=== PATIENT | female | born 1940 | race Caucasian/White ===

== ENCOUNTER → 2017-07-13 | Outpatient (CLI) | payer OTHER ==
[~2017-07-13] MED LIST: AMLO5TAB2 PO; ASPI-1005 PO; CITA-107 PO; GUAI118S23 PO; HYDR25TA PO; LOSA100T29 PO; METO25TA6 PO; MONT10TA24 PO; OMEP20CA10 PO; PRAV80TA21 PO
== END ==
LOC: RAH 13:22
PROVIDERS: ATTEND Internal Medicine
DX: J84.10 Pulmonary fibrosis, unspecified (principal); R05 Cough
CPT/HCPCS: 71046

== ENCOUNTER 2018-02-18 22:20 | Inpatient (IN) | payer OTHER ==
[~2018-02-18] VITALS: Ht 154.9 cm; Wt 74.4 kg
[~2018-02-18 22:20] MED LIST changes: -AMLO5TAB2 PO; +AMLO5TAB7 PO; -ASPI-1005 PO; +BACL10TA PO; +DUONEB IH; +HYDR2TAB5 PO; +LORA0.5T2 PO; -LOSA100T29 PO; +METF-444 PO; +NITR0.4T SL; +POLY15DR57 OU; +POLY17PO3 PO; +PRED20TA3 PO; +PROP20TA7 PO; +TEMA7.5C17 PO; +TRAZ-185 PO; +[UNRECOGNIZED DRUG - CODE] OU
[2018-02-18] MEDS ORDERED: ALBU6.7H IH (23:38)
[2018-02-18] MEDS ORDERED: TIOT4MIS5 IH (23:38)
[2018-02-18] MEDS ORDERED: NAPR-1192 PO (23:45)
[2018-02-18] MEDS ORDERED: ALPR0.255 PO (23:58)
[2018-02-18] MEDS ORDERED: GABA-531 PO (23:58)
[2018-02-18] MEDS ORDERED: LOSA100T20 PO (23:58)
[2018-02-18] MEDS ORDERED: INSU100I21 SQ (23:58)
[2018-02-19] VITALS (7 sets, daily range): BP systolic 108–136; BP diastolic 53–76
[2018-02-19] MEDS ORDERED: ALPRAZOLAM 0.25 MG TABLET PO PRN (00:30)
[2018-02-19] MEDS ORDERED: NITROGLYCERIN 0.4 MG SL TAB SL PRN (00:30)
[2018-02-19] MEDS: LEVOFLOXACIN 500 MG/D5W 100 ML 100 ML IV SCH ×2 (01:17→23:02)
[2018-02-19] MEDS: IPRATROPIUM/ALBUTEROL SULFATE 3 ML SOLUTION IH SCH ×5 (01:46→21:52)
[2018-02-19] MEDS ORDERED: PHARMACY COMMUNICATION MISC SCH (02:00)
[2018-02-19] MEDS ORDERED: METHYLPREDNISOLONE SOD SUCC 125MG/2ML VIAL IVP SCH (03:00)
[2018-02-19 04:51] LABS: HEMOGLOBIN A1C 6.7 % (4.0-6.0)
[2018-02-19 06:09] LABS: BASOPHILS % (AUTO) 0.3 % (0.0-5.0); HEMATOCRIT 33.6 % (36-48); LYMPHOCYTES % (AUTO) 12.9 % (21.0-51.0); MEAN CORPUSCULAR HEMOGLOBIN 29.6 pg (27.0-33.0); MEAN CORPUSCULAR HGB CONC 33.9 g/dL (32.0-36.0); MEAN CORPUSCULAR VOLUME 87.3 fL (79-99); MONOCYTES % (AUTO) 1.9 % (3.0-13.0); NEUTROPHILS % (AUTO) 84.9 % (40.0-77.0); PLATELET COUNT (AUTO) 332 K/uL (130-400); RED BLOOD CELL COUNT(AUTO) 3.85 MIL/uL (4.00-5.50); RED CELL DISTRIBUTION WIDTH 15.1 % (11.0-15.5); WHITE BLOOD COUNT (AUTO) 4.5 K/uL (4.8-10.8)
[2018-02-19 06:28] LABS: ALBUMIN 3.2 g/dL (3.5-5.0); BILIRUBIN,TOTAL 0.2 mg/dL (0.2-1.0); CREATININE 0.9 mg/dL (0.5-1.5); POTASSIUM 4.6 mmol/L (3.5-5.1); TOTAL PROTEIN, SERUM 7.1 g/dL (6.0-8.3)
[2018-02-19] MEDS ORDERED: INSULIN HUMULIN R 100 UNIT/ML 3ML SQ SCH (07:30)
[2018-02-19] MEDS ORDERED: DEXTROSE 50%-WATER 50 ML DISP.SYRIN IV PRN (08:00)
[2018-02-19] MEDS ORDERED: GLUCAGON 1MG KIT 1 MG ML IM PRN (08:00)
[2018-02-19] MEDS: METHYLPREDNISOLONE SOD SUCC 125MG/2ML VIAL IVP SCH ×2 (09:52→17:49)
[2018-02-19] MEDS: POLYETHYLENE GLYCOL 3350 17 GM POWD.PACK PO SCH (09:53)
[2018-02-19] MEDS: PANTOPRAZOLE SODIUM 40 MG TABLET.DR PO SCH (09:53)
[2018-02-19] MEDS: MONTELUKAST SODIUM 10 MG TAB PO SCH (09:53)
[2018-02-19] MEDS: ENOXAPARIN SODIUM 30 MG/0.3 ML SQ SCH (09:53)
[2018-02-19] MEDS: LOSARTAN 100 MG TABLET PO SCH (09:54)
[2018-02-19] MEDS: CITALOPRAM 20 MG TABLET PO SCH ×2 (09:54→20:31)
[2018-02-19] MEDS: AMLODIPINE BESYLATE 5 MG TAB PO SCH (09:55)
[2018-02-19] MEDS: HYDROCHLOROTHIAZIDE 25 MG TABLET PO SCH (11:13)
[2018-02-19] MEDS: BENZONATATE 100 MG CAPSULE PO PRN ×2 (11:13→23:05)
[2018-02-19] MEDS: BACLOFEN 10 MG TABLET PO PRN ×2 (12:44→20:31)
[2018-02-19] MEDS: INSULIN HUMULIN R 100 UNIT/ML 3ML SQ SCH ×3 (12:44→20:38)
[2018-02-19] MEDS ORDERED: ACETAMINOPHEN 325 MG TAB ONE (12:47)
[2018-02-19] MEDS ORDERED: GUAIFENESIN-DM 200/20 MG 10 ML PO PRN (13:00)
[2018-02-19] MEDS: ACETAMINOPHEN 325 MG TAB PO PRN ×2 (13:12→21:39)
[2018-02-19] MEDS ORDERED: GUAIFENESIN-CODEINE 5 ML SYRUP ONE (13:14)
[2018-02-19] MEDS: GUAIFENESIN-CODEINE 5 ML SYRUP PO PRN (20:31)
[2018-02-19] MEDS: TEMAZEPAM 7.5 MG CAPSULE PO SCH (20:31)
[2018-02-19] MEDS ORDERED: SODIUM CHLORIDE 3% FOR INHALATION 4 ML/AMP VIAL.NEB IH ONE (21:44)
[2018-02-20] VITALS: BP 125/76
[2018-02-20] MEDS: METHYLPREDNISOLONE SOD SUCC 125MG/2ML VIAL IVP SCH ×3 (01:18→17:55)
[2018-02-20 04:00] VITALS: BP 133/62
[2018-02-20] MEDS: GUAIFENESIN-CODEINE 5 ML SYRUP PO PRN ×2 (04:03→22:00)
[2018-02-20] MEDS: ACETAMINOPHEN 325 MG TAB PO PRN (04:07)
[2018-02-20] MEDS: IPRATROPIUM/ALBUTEROL SULFATE 3 ML SOLUTION IH SCH ×3 (06:04→22:58)
[2018-02-20] MEDS: INSULIN HUMULIN R 100 UNIT/ML 3ML SQ SCH ×4 (06:59→22:01)
[2018-02-20 07:00] VITALS: BP 130/65
[2018-02-20] MEDS ORDERED: TRAZODONE HCL 50 MG TAB PO PRN (08:30)
[2018-02-20] MEDS: HYDROCHLOROTHIAZIDE 25 MG TABLET PO SCH (09:00)
[2018-02-20] MEDS: POLYETHYLENE GLYCOL 3350 17 GM POWD.PACK PO SCH (09:15)
[2018-02-20] MEDS: ENOXAPARIN SODIUM 30 MG/0.3 ML SQ SCH (09:16)
[2018-02-20] MEDS: MONTELUKAST SODIUM 10 MG TAB PO SCH (09:17)
[2018-02-20] MEDS: PANTOPRAZOLE SODIUM 40 MG TABLET.DR PO SCH (09:17)
[2018-02-20] MEDS: AMLODIPINE BESYLATE 5 MG TAB PO SCH (09:17)
[2018-02-20] MEDS: LOSARTAN 100 MG TABLET PO SCH (09:18)
[2018-02-20] MEDS: CITALOPRAM 20 MG TABLET PO SCH ×2 (09:18→21:59)
[2018-02-20] MEDS: HYDROMORPHONE HCL 2 MG TAB PO PRN (09:30)
[2018-02-20 11:00] VITALS: BP 146/60
[2018-02-20 16:00] VITALS: BP 120/61
[2018-02-20 20:00] VITALS: BP 106/63
[2018-02-20] MEDS: GABAPENTIN 300 MG CAPSULE PO PRN (22:00)
[2018-02-20] MEDS: TEMAZEPAM 7.5 MG CAPSULE PO SCH (22:00)
[2018-02-20] MEDS: BENZONATATE 100 MG CAPSULE PO PRN (22:00)
[2018-02-21] VITALS (7 sets, daily range): BP systolic 106–125; BP diastolic 52–76
[2018-02-21] MEDS: LEVOFLOXACIN 500 MG/D5W 100 ML 100 ML IV SCH ×2 (00:04→23:56)
[2018-02-21] MEDS: METHYLPREDNISOLONE SOD SUCC 125MG/2ML VIAL IVP SCH ×3 (01:08→17:36)
[2018-02-21] MEDS: IPRATROPIUM/ALBUTEROL SULFATE 3 ML SOLUTION IH SCH ×3 (06:35→21:29)
[2018-02-21] MEDS: INSULIN HUMULIN R 100 UNIT/ML 3ML SQ SCH ×4 (06:38→20:57)
[2018-02-21] MEDS: POLYETHYLENE GLYCOL 3350 17 GM POWD.PACK PO SCH ×2 (09:00→17:36)
[2018-02-21] MEDS: HYDROCHLOROTHIAZIDE 25 MG TABLET PO SCH (09:42)
[2018-02-21] MEDS: AMLODIPINE BESYLATE 5 MG TAB PO SCH (09:42)
[2018-02-21] MEDS: PANTOPRAZOLE SODIUM 40 MG TABLET.DR PO SCH (09:42)
[2018-02-21] MEDS: LOSARTAN 100 MG TABLET PO SCH (09:42)
[2018-02-21] MEDS: CITALOPRAM 20 MG TABLET PO SCH ×2 (09:43→20:55)
[2018-02-21] MEDS: MONTELUKAST SODIUM 10 MG TAB PO SCH (09:43)
[2018-02-21] MEDS: ENOXAPARIN SODIUM 30 MG/0.3 ML SQ SCH (09:44)
[2018-02-21] MEDS: BENZONATATE 100 MG CAPSULE PO PRN (17:35)
[2018-02-21] MEDS: HYDROMORPHONE HCL 2 MG TAB PO PRN (17:35)
[2018-02-21] MEDS: GUAIFENESIN-CODEINE 5 ML SYRUP PO PRN (20:55)
[2018-02-21] MEDS: TEMAZEPAM 7.5 MG CAPSULE PO SCH (20:55)
[2018-02-22] VITALS (7 sets, daily range): BP systolic 125–168; BP diastolic 62–76
[2018-02-22] MEDS: METHYLPREDNISOLONE SOD SUCC 125MG/2ML VIAL IVP SCH ×2 (01:07→09:39)
[2018-02-22] MEDS: HYDROMORPHONE HCL 2 MG TAB PO PRN (02:39)
[2018-02-22] MEDS: DIPHENHYDRAMINE HCL 25 MG CAPSULE PO PRN ×2 (03:33→09:38)
[2018-02-22 05:02] LABS: BASOPHILS % (AUTO) 0.1 % (0.0-5.0); HEMATOCRIT 30.5 % (36-48); LYMPHOCYTES % (AUTO) 4.1 % (21.0-51.0); MEAN CORPUSCULAR HEMOGLOBIN 28.8 pg (27.0-33.0); MEAN CORPUSCULAR HGB CONC 33.3 g/dL (32.0-36.0); MEAN CORPUSCULAR VOLUME 86.5 fL (79-99); MONOCYTES % (AUTO) 4.5 % (3.0-13.0); NEUTROPHILS % (AUTO) 91.3 % (40.0-77.0); PLATELET COUNT (AUTO) 338 K/uL (130-400); RED BLOOD CELL COUNT(AUTO) 3.53 MIL/uL (4.00-5.50); RED CELL DISTRIBUTION WIDTH 15.2 % (11.0-15.5); WHITE BLOOD COUNT (AUTO) 11.7 K/uL (4.8-10.8)
[2018-02-22 05:18] LABS: CREATININE 0.9 mg/dL (0.5-1.5); POTASSIUM 4.4 mmol/L (3.5-5.1)
[2018-02-22] MEDS: PANTOPRAZOLE SODIUM 40 MG TABLET.DR PO SCH (06:07)
[2018-02-22] MEDS: INSULIN HUMULIN R 100 UNIT/ML 3ML SQ SCH ×4 (06:14→20:35)
[2018-02-22] MEDS: IPRATROPIUM/ALBUTEROL SULFATE 3 ML SOLUTION IH SCH ×3 (06:55→21:14)
[2018-02-22] MEDS: CITALOPRAM 20 MG TABLET PO SCH ×2 (09:38→20:30)
[2018-02-22] MEDS: POLYETHYLENE GLYCOL 3350 17 GM POWD.PACK PO SCH (09:38)
[2018-02-22] MEDS: MONTELUKAST SODIUM 10 MG TAB PO SCH (09:38)
[2018-02-22] MEDS: AMLODIPINE BESYLATE 5 MG TAB PO SCH (09:38)
[2018-02-22] MEDS: HYDROCHLOROTHIAZIDE 25 MG TABLET PO SCH (09:38)
[2018-02-22] MEDS: ENOXAPARIN SODIUM 30 MG/0.3 ML SQ SCH (09:39)
[2018-02-22] MEDS: LOSARTAN 100 MG TABLET PO SCH (09:39)
[2018-02-22] MEDS: ACETAMINOPHEN 325 MG TAB PO PRN ×2 (09:53→17:26)
[2018-02-22] MEDS: BENZONATATE 100 MG CAPSULE PO PRN ×2 (12:23→17:22)
[2018-02-22] MEDS ORDERED: METHYLPREDNISOLONE SOD SUCC 40MG/ML 1ML IVP SCH (17:00)
[2018-02-22] MEDS: GABAPENTIN 300 MG CAPSULE PO PRN (20:30)
[2018-02-22] MEDS: TEMAZEPAM 7.5 MG CAPSULE PO SCH (20:30)
[2018-02-22] MEDS: GUAIFENESIN-CODEINE 5 ML SYRUP PO PRN (20:30)
[2018-02-22] MEDS: PREDNISONE 10 MG TABLET PO SCH (20:30)
[2018-02-22] MEDS ORDERED: PREDNISONE 10 MG TABLET PO ONE (21:00)
[2018-02-22] MEDS: LEVOFLOXACIN 500 MG/D5W 100 ML 100 ML IV SCH (23:47)
[2018-02-23 04:00] VITALS: BP 139/76
[2018-02-23] MEDS: INSULIN HUMULIN R 100 UNIT/ML 3ML SQ SCH ×2 (06:14→11:30)
[2018-02-23] MEDS: PANTOPRAZOLE SODIUM 40 MG TABLET.DR PO SCH (06:45)
[2018-02-23] MEDS: IPRATROPIUM/ALBUTEROL SULFATE 3 ML SOLUTION IH SCH ×2 (07:13→14:17)
[2018-02-23 08:00] VITALS: BP 137/70
[2018-02-23] MEDS: AMLODIPINE BESYLATE 5 MG TAB PO SCH (09:19)
[2018-02-23] MEDS: MONTELUKAST SODIUM 10 MG TAB PO SCH (09:19)
[2018-02-23] MEDS: CITALOPRAM 20 MG TABLET PO SCH (09:20)
[2018-02-23] MEDS: PREDNISONE 10 MG TABLET PO SCH (09:20)
[2018-02-23] MEDS: HYDROCHLOROTHIAZIDE 25 MG TABLET PO SCH (09:20)
[2018-02-23] MEDS: LOSARTAN 100 MG TABLET PO SCH (09:20)
[2018-02-23] MEDS: ENOXAPARIN SODIUM 30 MG/0.3 ML SQ SCH (09:23)
[2018-02-23] MEDS: POLYETHYLENE GLYCOL 3350 17 GM POWD.PACK PO SCH (09:25)
[2018-02-23] MEDS: GUAIFENESIN-CODEINE 5 ML SYRUP PO PRN (09:28)
[2018-02-23 12:00] VITALS: BP 120/75
[2018-02-23] MEDS ORDERED: METH4TAB3 PO (12:35)
== END 2018-02-23 15:21 | disposition home or self-care (01) | DRG 189 ==
LOC: 3DH 22:23
PROVIDERS: ADMIT Internal Medicine; ATTEND Internal Medicine
DX: J96.22 Acute and chronic respiratory failure with hypercapnia (principal); J44.1 Chronic obstructive pulmonary disease with (acute) exacerbation; J96.21 Acute and chronic respiratory failure with hypoxia; E11.65 Type 2 diabetes mellitus with hyperglycemia; E66.9 Obesity, unspecified; I25.10 Atherosclerotic heart disease of native coronary artery without angina pectoris; E78.00 Pure hypercholesterolemia, unspecified; F41.9 Anxiety disorder, unspecified; H04.123 Dry eye syndrome of bilateral lacrimal glands; I10 Essential (primary) hypertension; Z77.22 Contact with and (suspected) exposure to environmental tobacco smoke (acute) (chronic); Z79.4 Long term (current) use of insulin; Z82.0 Family history of epilepsy and other diseases of the nervous system; Z82.49 Family history of ischemic heart disease and other diseases of the circulatory system; Z82.5 Family history of asthma and other chronic lower respiratory diseases; Z99.81 Dependence on supplemental oxygen; Z68.30 Body mass index [BMI] 30.0-30.9, adult; Z83.3 Family history of diabetes mellitus; Z87.891 Personal history of nicotine dependence; Z88.0 Allergy status to penicillin; Z88.8 Allergy status to other drugs, medicaments and biological substances; Z91.041 Radiographic dye allergy status; Z79.899 Other long term (current) drug therapy; Z79.84 Long term (current) use of oral hypoglycemic drugs
CPT/HCPCS: 36415; 70450; 71046; 80048; 80053; 82948; 83036; 85025; 87071; 87205; 93925; 94640; 94664; 94760; 97039; J1650; J1815; J1956; J2920; J2930; J7512; Q0163

== ENCOUNTER 2018-08-18 17:35 | Emergency (ER) | payer OTHER ==
[~2018-08-18 17:35] MED LIST changes: +ALPR0.255 PO; -AMLO5TAB7 PO; -BACL10TA PO; +CITA-106 PO; -CITA-107 PO; -DUONEB IH; -GUAI118S23 PO; -HYDR25TA PO; -HYDR2TAB5 PO; -LORA0.5T2 PO; +LOSA50TA2 PO; -METF-444 PO; +METO25 PO; -METO25TA6 PO; -POLY15DR57 OU; -POLY17PO3 PO; -PRED20TA3 PO; -PROP20TA7 PO; -TEMA7.5C17 PO; -TRAZ-185 PO
[2018-08-18] MEDS ORDERED: IPRATROPIUM/ALBUTEROL SULFATE 3 ML SOLUTION IH ONE (18:05)
[2018-08-18] MEDS ORDERED: SODIUM CHLORIDE 0.9% 1000ML 1,000 ML IV ONE (18:10)
[2018-08-18 18:15] LABS: BASOPHILS % (AUTO) 0.6 % (0.0-5.0); EOSINOPHILS % (AUTO) 4.6 % (0.0-8.0); HEMATOCRIT 29.3 % (36-48); LYMPHOCYTES % (AUTO) 20.4 % (21.0-51.0); MEAN CORPUSCULAR HEMOGLOBIN 28.8 pg (27.0-33.0); MEAN CORPUSCULAR HGB CONC 32.9 g/dL (32.0-36.0); MEAN CORPUSCULAR VOLUME 87.5 fL (79-99); NEUTROPHILS % (AUTO) 58.4 % (40.0-77.0); NUCLEATED RED BLOOD CELLS 0.1 % (0.0-0.19); PLATELET COUNT (AUTO) 272 K/uL (130-400); RED BLOOD CELL COUNT(AUTO) 3.34 MIL/uL (4.00-5.50); RED CELL DISTRIBUTION WIDTH 14.4 % (11.0-15.5); WHITE BLOOD COUNT (AUTO) 6.9 K/uL (4.8-10.8)
[2018-08-18 18:26] LABS: CREATININE 1.8 mg/dL (0.5-1.5)
[2018-08-18 18:31] LABS: ALBUMIN 3.4 g/dL (3.5-5.0); BILIRUBIN,TOTAL 0.1 mg/dL (0.2-1.0); TOTAL PROTEIN, SERUM 6.5 g/dL (6.0-8.3)
== END 2018-08-18 21:54 | disposition home or self-care (01) ==
LOC: EDH 17:35
DX: I95.9 Hypotension, unspecified (principal); E86.0 Dehydration; J44.9 Chronic obstructive pulmonary disease, unspecified; E11.9 Type 2 diabetes mellitus without complications; F41.9 Anxiety disorder, unspecified; I25.10 Atherosclerotic heart disease of native coronary artery without angina pectoris; E78.5 Hyperlipidemia, unspecified; Z90.49 Acquired absence of other specified parts of digestive tract; Z98.890 Other specified postprocedural states; Z88.0 Allergy status to penicillin; Z91.041 Radiographic dye allergy status; Z91.030 Bee allergy status; Z88.8 Allergy status to other drugs, medicaments and biological substances
CPT/HCPCS: 36415; 71045; 80053; 84484; 85025; 93005; 94640; 96360; 96361; 99284; J7030

== ENCOUNTER 2018-10-07 11:16 | Inpatient (IN) | payer OTHER ==
[~2018-10-07] VITALS: Ht 154.9 cm; Wt 69.0 kg
[2018-10-07] MEDS ORDERED: IPRATROPIUM/ALBUTEROL SULFATE 3 ML SOLUTION IH ONE ×3 (11:27→11:28)
[2018-10-07] MEDS ORDERED: NITROGLYCERIN 1GM/1 INCH PACKET TD ONE (11:42)
[2018-10-07 11:46] LABS: BASOPHILS % (AUTO) 0.6 % (0.0-5.0); EOSINOPHILS % (AUTO) 7.8 % (0.0-8.0); LYMPHOCYTES % (AUTO) 17.9 % (21.0-51.0); MEAN CORPUSCULAR HEMOGLOBIN 29.2 pg (27.0-33.0); MEAN CORPUSCULAR HGB CONC 32.6 g/dL (32.0-36.0); MEAN CORPUSCULAR VOLUME 89.7 fL (79-99); MONOCYTES % (AUTO) 8.4 % (3.0-13.0); NEUTROPHILS % (AUTO) 65.3 % (40.0-77.0); NUCLEATED RED BLOOD CELLS 0.1 % (0.0-0.19); PLATELET COUNT (AUTO) 257 K/uL (130-400); RED BLOOD CELL COUNT(AUTO) 3.79 MIL/uL (4.00-5.50); RED CELL DISTRIBUTION WIDTH 16.1 % (11.0-15.5); WHITE BLOOD COUNT (AUTO) 6.9 K/uL (4.8-10.8)
[2018-10-07 12:01] LABS: PARTIAL THROMBOPLASTIN TIME 20.4 SEC (26.3-35.5); PROTHROMBIN TIME 10.5 SEC (9.6-11.6)
[2018-10-07 12:07] LABS: CREATININE 1.1 mg/dL (0.5-1.5)
[2018-10-07 12:34] LABS: ALBUMIN 3.5 g/dL (3.5-5.0); BILIRUBIN,TOTAL 0.3 mg/dL (0.2-1.0); TOTAL PROTEIN, SERUM 6.7 g/dL (6.0-8.3)
[2018-10-07 13:46] LABS: APPEARANCE,URINE Cloudy (CLEAR); BILIRUBIN,URINE Negative (NEGATIVE); COLOR,URINE Yellow (YELLOW); GLUCOSE, URINE (UA) Negative (NEGATIVE); KETONES,URINE Negative (NEGATIVE); LEUKOCYTE ESTERASE ,URINE Negative (NEGATIVE); NITRATE,URINE Negative (NEGATIVE); OCCULT BLOOD,URINE Negative (NEGATIVE); PROTEIN,URINE Negative (NEGATIVE); UROBILINOGEN,URINE 0.2 mg/dL (0.2-1.0)
[2018-10-07] MEDS ORDERED: MORPHINE SULFATE 2 MG/ML 1ML SYG ONE (14:01)
[2018-10-07 14:22] LABS: BACTERIA,URINE Rare /HPF (None Seen); RBC,URINE 0-1 /HPF (0-1); SQUAMOUS EPITHELIAL CELL,UR Rare /HPF (0-2); WBC,URINE 0-1 /HPF (0-1)
[2018-10-07] MEDS: METHYLPREDNISOLONE SOD SUCC 125MG/2ML VIAL IV SCH (16:15)
[2018-10-07] MEDS: MONTELUKAST SODIUM 10 MG TAB PO SCH (16:15)
[2018-10-07] MEDS ORDERED: ACETAMINOPHEN 325 MG TAB PO PRN (16:15)
[2018-10-07] MEDS: DOXYCYCLINE 100MG+NS 250ML 250 ML IV SCH (16:15)
[2018-10-07] MEDS ORDERED: ONDANSETRON HCL 4 MG/2 ML VIAL IV PRN (16:15)
[2018-10-07] MEDS ORDERED: SODIUM CHLORIDE 3% FOR INHALATION 4 ML/AMP VIAL.NEB IH ONE (16:35)
[2018-10-07] MEDS ORDERED: MONTELUKAST SODIUM 10 MG TAB ONE (17:39)
[2018-10-07] MEDS ORDERED: METHYLPREDNISOLONE SOD SUCC 40MG/ML 1ML ONE (17:42)
[2018-10-07] MEDS ORDERED: DOXYCYCLINE 100MG+NS 250ML 250 ML IV ONE (17:42)
[2018-10-07 18:44] VITALS: BP 102/55
--- NOTE | 2018-10-07 18:45 | NUR ---
Received patient in the floor to room 230. Keep 3l NC So2-94%. Patient family in the room. Call light in reach and demonstrate how to use it. Bed in low position.
[2018-10-07 19:00] VITALS: BP 117/63
[2018-10-07] MEDS: IPRATROPIUM/ALBUTEROL SULFATE 3 ML SOLUTION IH SCH ×2 (19:04→23:50)
[2018-10-07] MEDS: BUDESONIDE 0.5 MG/2 ML INH IH SCH (19:39)
[2018-10-07 23:00] VITALS: BP 117/64
[2018-10-08] MEDS: METHYLPREDNISOLONE SOD SUCC 125MG/2ML VIAL IV SCH ×4 (02:05→23:57)
[2018-10-08 03:00] VITALS: BP 98/40
[2018-10-08] MEDS ORDERED: ACET-2247 PO (06:13)
[2018-10-08] MEDS ORDERED: SIMV80TA91 PO (06:14)
[2018-10-08] MEDS ORDERED: TRAM50TA4 PO (06:14)
[2018-10-08] MEDS ORDERED: MOM30 PO (06:20)
[2018-10-08] MEDS ORDERED: ASPI-555 PO (06:26)
[2018-10-08] MEDS ORDERED: APIX5TAB PO (06:26)
[2018-10-08] MEDS ORDERED: ZOLP5TAB2 PO (06:26)
[2018-10-08] MEDS ORDERED: LACT10SO9 PO (06:26)
[2018-10-08] MEDS ORDERED: LACT1CAP90 PO (06:26)
[2018-10-08] MEDS ORDERED: [UNRECOGNIZED DRUG - CODE] MC (06:29)
[2018-10-08] MEDS: DOXYCYCLINE 100MG+NS 250ML 250 ML IV SCH ×2 (06:31→17:08)
[2018-10-08] MEDS: IPRATROPIUM/ALBUTEROL SULFATE 3 ML SOLUTION IH SCH ×3 (06:52→19:15)
[2018-10-08] MEDS: BUDESONIDE 0.5 MG/2 ML INH IH SCH ×2 (06:52→19:32)
[2018-10-08 07:25] VITALS: BP 148/69
[2018-10-08] MEDS: MONTELUKAST SODIUM 10 MG TAB PO SCH (09:00)
[2018-10-08] MEDS: CETIRIZINE HCL 5 MG TABLET PO SCH (09:00)
[2018-10-08] MEDS ORDERED: ENOXAPARIN SODIUM 40 MG/0.4 ML SYRINGE SQ SCH (09:00)
--- NOTE | 2018-10-08 10:50 | NUR ---
PT. C/O SOB. REQUESTING "MACHINE" (BIPAP) BE REAPPLIED "LIKE IN THE EMERGENCY DEPARTMENT."
[2018-10-08] MEDS: ACETAMINOPHEN 325 MG TAB PO PRN (11:01)
--- NOTE | 2018-10-08 11:05 | NUR ---
DR. LLANOS IN ROOM SPEAKING WITH PT.
--- NOTE | 2018-10-08 11:09 | NUR ---
DR. LLANOS SPEAKING WITH DR. QUINTERO RE: CONSULT.
--- NOTE | 2018-10-08 11:13 | NUR ---
DR. QUINTERO IN ROOM WITH PT. FOR CONSULT.
[2018-10-08 11:29] VITALS: BP 153/73
[2018-10-08] MEDS: MORPHINE SULFATE 2 MG/ML 1ML SYG IVP PRN (12:04)
[2018-10-08] MEDS ORDERED: MAGNESIUM HYDROXIDE 30 ML/UDCUP PO PRN (12:15)
--- NOTE | 2018-10-08 12:15 | NUR ---
PT. REMOVED BIPAP FOR LUNCH. PLACED ON 3L/NC. CALL LIGHT WITHIN REACH, INSTRUCTED ON USE AND VERBALIZED UNDERSTANDING. DAUGHTER AT BEDSIDE.
--- NOTE | 2018-10-08 13:00 | NUR ---
ATE LUNCH, TOLERATED W/O C/O. STATES," I'M DOING MUCH BETTER. I DON'T THINK I NEED THAT (BIPAP) ANYMORE." CALL LIGHT WITHIN REACH.
[2018-10-08] MEDS: LACTOBACILLUS RHAMNOSUS GG 1 EACH CAP.SPRINK PO SCH ×2 (13:38→19:33)
[2018-10-08] MEDS ORDERED: ACETAMINOPHEN 325 MG TAB PO SCH (14:00)
[2018-10-08] MEDS ORDERED: ACETAMINOPHEN 325 MG TAB PO PRN (14:00)
[2018-10-08] MEDS ORDERED: TRAMADOL HCL 50 MG TABLET PO SCH (14:00)
[2018-10-08] MEDS ORDERED: TRAMADOL HCL 50 MG TABLET PO PRN (14:00)
--- NOTE | 2018-10-08 15:25 | NUR ---
INITIAL: Met w pt this afternoon to discuss dcp. Pt states that she lives w her dtr [place] and granddtr. Pt states that at home she uses a rollator for ambulation. She requires supervision w ADLs. and Has home O2, nebulizer and a hosp bed. Pt states that she feels safe and comfortable to return home at [place]. Will continue to follow and wait for Md recommendations. Addendum: 10/08/18 at 1532 by ANAMARIA GRANADOS CM Amended: Links added.
[2018-10-08 15:59] VITALS: BP 154/71
[2018-10-08] MEDS: LEVOFLOXACIN 750 MG/D5W 150 ML 150 ML IV SCH (16:02)
--- NOTE | 2018-10-08 17:05 | NUR ---
SITTING UP IN BED. EATING DINNER. W/O C/O. CALL LIGHT WITHIN REACH.
[2018-10-08] MEDS: GUAIFENESIN-CODEINE 5 ML SYRUP PO PRN (17:14)
[2018-10-08 19:00] VITALS: BP 149/70
[2018-10-08] MEDS: APIXABAN 5 MG TABLET PO SCH (21:22)
[2018-10-08] MEDS: METOPROLOL TARTRATE 25 MG TAB PO SCH (21:22)
[2018-10-08] MEDS: LACTULOSE 20 GM/30 ML UDCUP PO SCH (21:23)
[2018-10-08] MEDS: SIMVASTATIN 20 MG TABLET PO SCH (21:23)
[2018-10-08 23:00] VITALS: BP 146/67
[2018-10-09] VITALS (9 sets, daily range): BP systolic 137–172; BP diastolic 70–83
[2018-10-09] MEDS: IPRATROPIUM/ALBUTEROL SULFATE 3 ML SOLUTION IH SCH ×5 (00:37→23:32)
[2018-10-09] MEDS: DOXYCYCLINE 100MG+NS 250ML 250 ML IV SCH ×2 (03:05→17:13)
[2018-10-09] MEDS: BUDESONIDE 0.5 MG/2 ML INH IH SCH ×2 (07:11→18:50)
[2018-10-09] MEDS ORDERED: LOSARTAN 50 MG TABLET PO SCH (09:00)
[2018-10-09] MEDS ORDERED: PANTOPRAZOLE SODIUM 40 MG TABLET.DR PO PRN (09:00)
[2018-10-09] MEDS: LACTULOSE 20 GM/30 ML UDCUP PO SCH ×2 (09:00→20:53)
[2018-10-09] MEDS: METOPROLOL TARTRATE 25 MG TAB PO SCH ×2 (09:28→20:53)
[2018-10-09] MEDS: APIXABAN 5 MG TABLET PO SCH ×2 (09:28→20:53)
[2018-10-09] MEDS: CITALOPRAM 20 MG TABLET PO SCH (09:28)
[2018-10-09] MEDS: MONTELUKAST SODIUM 10 MG TAB PO SCH (09:28)
[2018-10-09] MEDS: METHYLPREDNISOLONE SOD SUCC 125MG/2ML VIAL IV SCH ×2 (09:29→17:12)
[2018-10-09] MEDS: LEVOFLOXACIN 750 MG/D5W 150 ML 150 ML IV SCH (09:29)
[2018-10-09] MEDS: LACTOBACILLUS RHAMNOSUS GG 1 EACH CAP.SPRINK PO SCH (09:29)
[2018-10-09] MEDS: CETIRIZINE HCL 5 MG TABLET PO SCH (09:29)
[2018-10-09] MEDS: ASPIRIN 81MG TAB.CHEW PO SCH (09:29)
--- NOTE | 2018-10-09 10:44 | NUR ---
DR. QUINTERO IN ROOM ASSESSING AND SPEAKING WITH PT. RE:PLAN OF CARE. QUESTIONS ANSWERED BY DR. QUINTERO.
[2018-10-09] MEDS ORDERED: GUAIFENESIN 600 MG TABLET.ER PO SCH (11:00)
[2018-10-09] MEDS: GUAIFENESIN-CODEINE 5 ML SYRUP PO PRN (11:40)
[2018-10-09] MEDS: CALCIUM CARBON 500MG CHEW TAB PO SCH ×2 (13:06→20:53)
[2018-10-09] MEDS: GUAIFENESIN 600 MG TABLET.ER PO SCH (20:53)
[2018-10-09] MEDS: SIMVASTATIN 20 MG TABLET PO SCH (20:53)
[2018-10-09] MEDS: ZOLPIDEM TARTRATE 5 MG TAB PO PRN (20:58)
[2018-10-10] MEDS: METHYLPREDNISOLONE SOD SUCC 125MG/2ML VIAL IV SCH ×2 (00:16→07:20)
[2018-10-10 03:00] VITALS: BP 158/75
[2018-10-10] MEDS: DOXYCYCLINE 100MG+NS 250ML 250 ML IV SCH ×2 (04:20→16:18)
--- NOTE | 2018-10-10 05:25 | NUR ---
Pt. states she noticed that she has more frequent tremors than usual now and it interferes her from doing her bony.Instructed pt. to take rest and see if it subsides .Instructed pt to use call light for assistance since she is high risk for fall.
[2018-10-10] MEDS: BUDESONIDE 0.5 MG/2 ML INH IH SCH ×2 (06:20→18:32)
[2018-10-10] MEDS: IPRATROPIUM/ALBUTEROL SULFATE 3 ML SOLUTION IH SCH ×4 (06:20→23:23)
[2018-10-10] MEDS: ASPIRIN 81MG TAB.CHEW PO SCH (07:18)
[2018-10-10] MEDS: LACTULOSE 20 GM/30 ML UDCUP PO SCH ×2 (07:18→20:38)
[2018-10-10] MEDS: LEVOFLOXACIN 750 MG/D5W 150 ML 150 ML IV SCH (07:18)
[2018-10-10] MEDS: CETIRIZINE HCL 5 MG TABLET PO SCH (07:18)
[2018-10-10] MEDS: APIXABAN 5 MG TABLET PO SCH ×2 (07:19→20:38)
[2018-10-10] MEDS: MONTELUKAST SODIUM 10 MG TAB PO SCH (07:19)
[2018-10-10] MEDS: METOPROLOL TARTRATE 25 MG TAB PO SCH ×2 (07:19→20:38)
[2018-10-10] MEDS: CALCIUM CARBON 500MG CHEW TAB PO SCH ×3 (07:19→20:40)
[2018-10-10] MEDS: GUAIFENESIN 600 MG TABLET.ER PO SCH ×2 (07:19→20:38)
[2018-10-10] MEDS: CITALOPRAM 20 MG TABLET PO SCH (07:19)
[2018-10-10] MEDS: LOSARTAN 100 MG TABLET PO SCH (07:19)
[2018-10-10] MEDS: LACTOBACILLUS RHAMNOSUS GG 1 EACH CAP.SPRINK PO SCH (07:20)
[2018-10-10 07:47] VITALS: BP 163/78
--- NOTE | 2018-10-10 08:00 | NUR ---
ASSESSMENT PT IS AAOX3 DENIES CP DENIES SOB DENIES NV AT THIS TIME, SITTING UPRIGHT IN BED, PATIENT HAS A COUGH. O2 IS ON PATIENT AT 2LPM. AM MEDS GIVEN NO COMPLAINTS.
--- NOTE | 2018-10-10 10:00 | NUR ---
CHEST PAIN AND SOB WITH COUGHING SPELLS PATIENT REQUESTS PAIN MED AND NITRO SL FOR HER CHEST DISCOMFORT, SHE STATES SHE BELIEVES ITS BROUGHT UPON BY HER BOUTS OF COUGHING. MORPHINE IV AND 1NTG SL GIVEN. SBP 160S. CONTINUING TO MONITOR.
[2018-10-10] MEDS: MORPHINE SULFATE 2 MG/ML 1ML SYG IVP PRN (10:02)
[2018-10-10] MEDS: NITROGLYCERIN 0.4 MG SL TAB SL PRN (10:05)
[2018-10-10] MEDS: GUAIFENESIN-CODEINE 5 ML SYRUP PO PRN (10:17)
--- NOTE | 2018-10-10 10:30 | NUR ---
STATUS PAIN IS RELIEVED NOW. REQUESTS COUGH SYRUP, GIVEN. NO FURTHER COMPLAINTS.
[2018-10-10 11:52] VITALS: BP 154/81
--- NOTE | 2018-10-10 12:15 | NUR ---
STATUS SITTING UPRIGHT IN BED. NO COMPLAINTS AT THIS TIME. CALL LIGHT WITHIN REACH.
[2018-10-10 15:59] VITALS: BP 169/89
[2018-10-10] MEDS: METHYLPREDNISOLONE SOD SUCC 40MG/ML 1ML IVP SCH (16:18)
--- NOTE | 2018-10-10 18:00 | NUR ---
STATUS SITTING UPRIGHT IN BED, VISITORS AT BEDSIDE. NO COMPLAINTS. CALL LIGHT WITHIN REACH.
[2018-10-10 19:41] VITALS: BP 173/82
[2018-10-10] MEDS: SIMVASTATIN 20 MG TABLET PO SCH (20:38)
[2018-10-10] MEDS: ZOLPIDEM TARTRATE 5 MG TAB PO PRN (20:50)
[2018-10-10] MEDS ORDERED: GABA-531 PO (21:40)
[2018-10-11] VITALS (7 sets, daily range): BP systolic 144–193; BP diastolic 66–85
[2018-10-11] MEDS: METHYLPREDNISOLONE SOD SUCC 40MG/ML 1ML IVP SCH ×3 (00:12→15:15)
[2018-10-11] MEDS: DOXYCYCLINE 100MG+NS 250ML 250 ML IV SCH ×2 (03:13→15:03)
[2018-10-11 04:11] LABS: ALBUMIN 3.2 g/dL (3.5-5.0); CREATININE 1.1 mg/dL (0.5-1.5); MAGNESIUM 1.6 mg/dL (1.80-2.40); PHOSPHORUS 3.4 mg/dL (2.5-4.9); POTASSIUM 3.8 mmol/L (3.5-5.1)
[2018-10-11 04:13] LABS: HEMATOCRIT 26.4 % (36-48); MEAN CORPUSCULAR HEMOGLOBIN 29.7 pg (27.0-33.0); MEAN CORPUSCULAR HGB CONC 33.8 g/dL (32.0-36.0); NUCLEATED RED BLOOD CELLS 0.1 % (0.0-0.19); PLATELET COUNT (AUTO) 208 K/uL (130-400); RED CELL DISTRIBUTION WIDTH 16.1 % (11.0-15.5); WHITE BLOOD COUNT (AUTO) 7.2 K/uL (4.8-10.8)
[2018-10-11 05:26] LABS: BAND NEUTROPHILS % (MANUAL) 1 % (0-2); LYMPHOCYTES % (MANUAL) 8 % (22-44); MAN.DIFF COMMENT-IMPRESSION MANUAL DIFFERENTIAL; MONOCYTES % (MANUAL) 7 % (2-9); PLATELET MORPHOLOGY COMMENT ADEQUATE; REACTIVE LYMPHOCYTES 1 % (0-0); SEGMENTED NEUTROPHILS % 83 % (40-70)
[2018-10-11] MEDS: BUDESONIDE 0.5 MG/2 ML INH IH SCH ×2 (06:17→19:42)
[2018-10-11] MEDS: IPRATROPIUM/ALBUTEROL SULFATE 3 ML SOLUTION IH SCH ×4 (06:17→23:46)
[2018-10-11] MEDS: GUAIFENESIN 600 MG TABLET.ER PO SCH ×2 (07:12→20:43)
[2018-10-11] MEDS: ASPIRIN 81MG TAB.CHEW PO SCH (07:13)
[2018-10-11] MEDS: APIXABAN 5 MG TABLET PO SCH ×2 (07:13→20:43)
[2018-10-11] MEDS: LACTULOSE 20 GM/30 ML UDCUP PO SCH ×2 (07:13→20:48)
[2018-10-11] MEDS: LACTOBACILLUS RHAMNOSUS GG 1 EACH CAP.SPRINK PO SCH (07:13)
[2018-10-11] MEDS: METOPROLOL TARTRATE 25 MG TAB PO SCH ×2 (07:13→20:43)
[2018-10-11] MEDS: CETIRIZINE HCL 5 MG TABLET PO SCH (07:13)
[2018-10-11] MEDS: LOSARTAN 100 MG TABLET PO SCH (07:13)
[2018-10-11] MEDS: LEVOFLOXACIN 750 MG/D5W 150 ML 150 ML IV SCH (07:13)
[2018-10-11] MEDS: MONTELUKAST SODIUM 10 MG TAB PO SCH (07:13)
[2018-10-11] MEDS: CITALOPRAM 20 MG TABLET PO SCH (07:13)
[2018-10-11] MEDS: CALCIUM CARBON 500MG CHEW TAB PO SCH ×3 (07:13→20:43)
--- NOTE | 2018-10-11 08:00 | NUR ---
ASSESSMENT PT IS AAOX3 DENIES CP DENIES SOB DENIES NV AT THIS TIME, SITTING UPRIGHT IN BED WITH NO COMPLAINTS. AM MEDS GIVEN. NURSE PRACTITIONER FOR DR ALVARADO ROUNDED. UPDATES GIVEN. CALL LIGHT WITHIN REACH.
[2018-10-11] MEDS ORDERED: BENZONATATE 100 MG CAPSULE PO PRN (08:15)
[2018-10-11] MEDS: GUAIFENESIN-CODEINE 5 ML SYRUP PO PRN ×2 (09:31→18:22)
--- NOTE | 2018-10-11 12:42 | NUR ---
REPORT GIVEN TO SAMUEL MCCAIN
--- NOTE | 2018-10-11 13:17 | NUR ---
PATIENT TRANSFERRED UP TO ROOM 414 ALL BELONGINGS TAKEN UP WITH PATIENT AND DAUGHTER. GENESIS MCCAIN AWARE OF PATIENT ARRIVAL TO FLOOR
--- NOTE | 2018-10-11 13:20 | NUR ---
RECEIVED PT. AAOx3. DENIES ANY PAIN/DISCOMFORT. RESP EVEN, UNLABORED. DENIES ANY SOB/DIFFICULTY BREATHING, CP/DISCOMFORT, O2@2L/NC. PT SITTING UP AT BEDSIDE WITH DAUGHTER PRESENT. ORIENTED PT/FAMILY TO ROOM AND HOSPITAL SETTING/EQUIPMENT, VERBALIZED UNDERSTANDING. PT WALKED TO RESTROOM WITH 02 EXTENSION TOLERATING WELL. INSTRUCTED TO CALL NURSE FOR ASSISTANCE USING NURSE CALL LIGHT. REPORTS PRODUCTIVE COUGH REPORTING WHITE SPUTUM. NO COUGHING AT THIS TIME. WILL CONTINUE TO MONITOR.
[2018-10-11] MEDS: SIMVASTATIN 20 MG TABLET PO SCH (20:43)
[2018-10-11] MEDS: HYDRALAZINE HCL 20 MG/ML VIAL IV PRN (20:48)
[2018-10-12] MEDS: ZOLPIDEM TARTRATE 5 MG TAB PO PRN ×2 (00:15→22:00)
[2018-10-12] MEDS: METHYLPREDNISOLONE SOD SUCC 40MG/ML 1ML IVP SCH ×3 (00:15→17:27)
[2018-10-12 04:00] VITALS: BP 177/91
[2018-10-12] MEDS: DOXYCYCLINE 100MG+NS 250ML 250 ML IV SCH ×2 (04:26→17:26)
[2018-10-12] MEDS: HYDRALAZINE HCL 20 MG/ML VIAL IV PRN (04:31)
[2018-10-12 04:57] LABS: HEMATOCRIT 28.5 % (36-48); MEAN CORPUSCULAR HGB CONC 32.9 g/dL (32.0-36.0); NUCLEATED RED BLOOD CELLS 0.1 % (0.0-0.19); PLATELET COUNT (AUTO) 242 K/uL (130-400); RED BLOOD CELL COUNT(AUTO) 3.23 MIL/uL (4.00-5.50); RED CELL DISTRIBUTION WIDTH 16.2 % (11.0-15.5); WHITE BLOOD COUNT (AUTO) 6.7 K/uL (4.8-10.8)
[2018-10-12 05:05] LABS: CREATININE 1.1 mg/dL (0.5-1.5); MAGNESIUM 1.7 mg/dL (1.80-2.40); PHOSPHORUS 3.8 mg/dL (2.5-4.9); POTASSIUM 3.8 mmol/L (3.5-5.1)
[2018-10-12 05:18] LABS: BAND NEUTROPHILS % (MANUAL) 1 % (0-2); LYMPHOCYTES % (MANUAL) 4 % (22-44); MAN.DIFF COMMENT-IMPRESSION MANUAL DIFFERENTIAL; METAMYELOCYTES % 2 % (0-0); MONOCYTES % (MANUAL) 2 % (2-9); REACTIVE LYMPHOCYTES 2 % (0-0); SEGMENTED NEUTROPHILS % 89 % (40-70)
[2018-10-12] MEDS: IPRATROPIUM/ALBUTEROL SULFATE 3 ML SOLUTION IH SCH ×4 (06:35→23:19)
[2018-10-12 07:40] VITALS: BP 168/80
[2018-10-12] MEDS ORDERED: MAGNESIUM 2GM PREMIX 50ML 50 ML IV PRN (08:00)
[2018-10-12] MEDS ORDERED: FAMOTIDINE 20MG TAB 20 MG TAB PO SCH (09:00)
[2018-10-12] MEDS ORDERED: METOPROLOL TARTRATE 25 MG TAB PO SCH (09:00)
[2018-10-12] MEDS: CALCIUM CARBON 500MG CHEW TAB PO SCH ×3 (10:06→21:58)
[2018-10-12] MEDS: GUAIFENESIN 600 MG TABLET.ER PO SCH ×2 (10:06→21:58)
[2018-10-12] MEDS: LACTOBACILLUS RHAMNOSUS GG 1 EACH CAP.SPRINK PO SCH (10:06)
[2018-10-12] MEDS: CETIRIZINE HCL 5 MG TABLET PO SCH (10:06)
[2018-10-12] MEDS: LACTULOSE 20 GM/30 ML UDCUP PO SCH ×2 (10:06→21:00)
[2018-10-12] MEDS: GUAIFENESIN-CODEINE 5 ML SYRUP PO PRN ×2 (10:06→17:26)
[2018-10-12] MEDS: LOSARTAN 100 MG TABLET PO SCH (10:06)
[2018-10-12] MEDS: CITALOPRAM 20 MG TABLET PO SCH (10:06)
[2018-10-12] MEDS: ASPIRIN 81MG TAB.CHEW PO SCH (10:06)
[2018-10-12] MEDS: MONTELUKAST SODIUM 10 MG TAB PO SCH (10:06)
[2018-10-12] MEDS: LEVOFLOXACIN 750 MG/D5W 150 ML 150 ML IV SCH (10:07)
[2018-10-12] MEDS: APIXABAN 5 MG TABLET PO SCH ×2 (10:07→21:58)
[2018-10-12] MEDS ORDERED: SODIUM CHLORIDE 3% FOR INHALATION 4 ML/AMP VIAL.NEB IH ONE (10:59)
[2018-10-12 13:12] VITALS: BP 166/77
[2018-10-12 16:18] VITALS: BP 151/78
--- NOTE | 2018-10-12 18:31 | NUR ---
Nutrition Intervention: Nutrition screed based on LOS x 5 days. Pt. admitted with Dx of Acute COPD Exacerbation, Acute Hypoxemia. Pt. on 75gm CCD diet with good p.o. intake, as pet pt. Labs reviewed(Alb 3.2). Spoke with pt. regarding nutritional supplementation and pt. agreed to try. LBM: 10/10/18. SR-20, elastic. BMI: 28.8, overweight for age. Recommendations: 1) Continue current diet. 2) Rec. Vanilla Glucerna QD with Lunch meal. 3) Continue to monitor pt's nutritional status. 4) Consult RD as nutrition concerns arise. Addendum: 10/12/18 at [address] Amended: Links added.
[2018-10-12] MEDS: BUDESONIDE 0.5 MG/2 ML INH IH SCH (19:22)
[2018-10-12] MEDS: SODIUM CHLORIDE 3% FOR INHALATION 4 ML/AMP VIAL.NEB IH SCH ×2 (19:33→23:51)
[2018-10-12 20:06] VITALS: BP 149/65
[2018-10-12] MEDS: FAMOTIDINE 20MG TAB 20 MG TAB PO SCH (21:58)
[2018-10-12] MEDS: SIMVASTATIN 20 MG TABLET PO SCH (22:00)
[2018-10-13] VITALS (8 sets, daily range): BP systolic 115–179; BP diastolic 63–82
[2018-10-13] MEDS: METHYLPREDNISOLONE SOD SUCC 40MG/ML 1ML IVP SCH ×2 (00:07→08:44)
[2018-10-13] MEDS: NITROGLYCERIN 0.4 MG SL TAB SL PRN (04:03)
[2018-10-13] MEDS: DOXYCYCLINE 100MG+NS 250ML 250 ML IV SCH (04:15)
[2018-10-13] MEDS: GUAIFENESIN-CODEINE 5 ML SYRUP PO PRN (04:33)
[2018-10-13 06:04] LABS: CREATININE 1.3 mg/dL (0.5-1.5); POTASSIUM 3.9 mmol/L (3.5-5.1)
[2018-10-13] MEDS: SODIUM CHLORIDE 3% FOR INHALATION 4 ML/AMP VIAL.NEB IH SCH ×4 (06:38→23:41)
[2018-10-13] MEDS: IPRATROPIUM/ALBUTEROL SULFATE 3 ML SOLUTION IH SCH ×4 (06:38→23:25)
[2018-10-13] MEDS: BUDESONIDE 0.5 MG/2 ML INH IH SCH ×2 (06:53→19:32)
[2018-10-13] MEDS: GUAIFENESIN 600 MG TABLET.ER PO SCH ×2 (08:48→20:36)
[2018-10-13] MEDS: CITALOPRAM 20 MG TABLET PO SCH (08:49)
[2018-10-13] MEDS: APIXABAN 5 MG TABLET PO SCH ×2 (08:49→20:37)
[2018-10-13] MEDS: ASPIRIN 81MG TAB.CHEW PO SCH (08:49)
[2018-10-13] MEDS: LACTOBACILLUS RHAMNOSUS GG 1 EACH CAP.SPRINK PO SCH (08:49)
[2018-10-13] MEDS: LOSARTAN 100 MG TABLET PO SCH (08:49)
[2018-10-13] MEDS: CALCIUM CARBON 500MG CHEW TAB PO SCH ×3 (08:49→20:37)
[2018-10-13] MEDS: LACTULOSE 20 GM/30 ML UDCUP PO SCH ×2 (08:49→21:00)
[2018-10-13] MEDS: FAMOTIDINE 20MG TAB 20 MG TAB PO SCH ×2 (08:50→20:37)
[2018-10-13] MEDS: CETIRIZINE HCL 5 MG TABLET PO SCH (08:50)
[2018-10-13] MEDS: MONTELUKAST SODIUM 10 MG TAB PO SCH (08:50)
[2018-10-13] MEDS: LEVOFLOXACIN 750 MG/D5W 150 ML 150 ML IV SCH (12:26)
[2018-10-13] MEDS ORDERED: PHARMACY COMMUNICATION MISC SCH (13:00)
[2018-10-13] MEDS ORDERED: BENZONATATE 100 MG CAPSULE PO SCH (16:15)
[2018-10-13] MEDS: GUAIFENESIN-CODEINE 5 ML SYRUP PO SCH (17:52)
[2018-10-13] MEDS: DEXAMETHASONE SOD PHOSPHATE 4 MG/ML 1ML VIAL IVP SCH (20:37)
[2018-10-13] MEDS: SIMVASTATIN 20 MG TABLET PO SCH (20:37)
[2018-10-13] MEDS ORDERED: METOPROLOL TARTRATE 25 MG TAB ONE (21:06)
[2018-10-13] MEDS: METOPROLOL TARTRATE 25 MG TAB PO SCH (21:08)
[2018-10-13] MEDS: ALPRAZOLAM 0.25 MG TABLET PO PRN (21:08)
[2018-10-14 04:05] VITALS: BP 144/66
[2018-10-14] MEDS: GUAIFENESIN-CODEINE 5 ML SYRUP PO SCH ×4 (05:17→23:45)
[2018-10-14] MEDS: NITROGLYCERIN 0.4 MG SL TAB SL PRN (05:23)
[2018-10-14] MEDS: SODIUM CHLORIDE 3% FOR INHALATION 4 ML/AMP VIAL.NEB IH SCH ×2 (06:16→10:57)
[2018-10-14] MEDS: BUDESONIDE 0.5 MG/2 ML INH IH SCH ×2 (06:16→17:21)
[2018-10-14] MEDS: IPRATROPIUM/ALBUTEROL SULFATE 3 ML SOLUTION IH SCH ×4 (06:16→23:49)
[2018-10-14 08:24] VITALS: BP 156/64
[2018-10-14] MEDS: LACTULOSE 20 GM/30 ML UDCUP PO SCH ×2 (09:00→20:58)
[2018-10-14] MEDS ORDERED: PHARMACY COMMUNICATION MISC SCH (10:15)
[2018-10-14] MEDS: DEXAMETHASONE SOD PHOSPHATE 4 MG/ML 1ML VIAL IVP SCH ×2 (10:40→20:57)
[2018-10-14] MEDS: LOSARTAN 100 MG TABLET PO SCH (10:40)
[2018-10-14] MEDS: ASPIRIN 81MG TAB.CHEW PO SCH (10:41)
[2018-10-14] MEDS: GUAIFENESIN 600 MG TABLET.ER PO SCH ×2 (10:41→20:56)
[2018-10-14] MEDS: FAMOTIDINE 20MG TAB 20 MG TAB PO SCH ×2 (10:41→20:56)
[2018-10-14] MEDS: CITALOPRAM 20 MG TABLET PO SCH (10:41)
[2018-10-14] MEDS: METOPROLOL TARTRATE 25 MG TAB PO SCH ×2 (10:41→20:56)
[2018-10-14] MEDS: CETIRIZINE HCL 5 MG TABLET PO SCH (10:41)
[2018-10-14] MEDS: MONTELUKAST SODIUM 10 MG TAB PO SCH (10:41)
[2018-10-14] MEDS: LACTOBACILLUS RHAMNOSUS GG 1 EACH CAP.SPRINK PO SCH (10:41)
[2018-10-14] MEDS: APIXABAN 5 MG TABLET PO SCH ×2 (10:41→20:56)
[2018-10-14] MEDS: CALCIUM CARBON 500MG CHEW TAB PO SCH ×3 (10:41→20:56)
[2018-10-14 12:55] VITALS: BP 147/69
[2018-10-14] MEDS: LEVOFLOXACIN 750 MG/D5W 150 ML 150 ML IV SCH (13:36)
[2018-10-14] MEDS: PHARMACY COMMUNICATION MISC SCH ×3 (14:09→20:09)
[2018-10-14 16:39] VITALS: BP 146/69
--- NOTE | 2018-10-14 16:57 | NUR ---
DC PLAN SPOKE TO ANAMARIA AT [facility] SAID SHOULD HAVE ANSWER TODAY. PEER TO PEER SET UP WITH DR. DUNLAP. MOT AND EMS STARTED IN CHART. Addendum: 10/14/18 at 1658 by JEANNETTE CISSE RN CM Amended: Links added.
[2018-10-14 19:35] VITALS: BP 131/67
[2018-10-14] MEDS: BENZONATATE 100 MG CAPSULE PO SCH (20:55)
[2018-10-14] MEDS: FLUTICASONE PROPIONATE 50MCG/SPRAY 16 GM BOTTLE EN SCH (21:00)
[2018-10-14] MEDS: SIMVASTATIN 20 MG TABLET PO SCH (21:01)
[2018-10-14] MEDS: ALPRAZOLAM 0.25 MG TABLET PO PRN (21:08)
[2018-10-14 23:20] VITALS: BP 136/51
[2018-10-15 03:30] VITALS: BP 147/64
[2018-10-15 04:10] LABS: HEMATOCRIT 28.3 % (36-48); MEAN CORPUSCULAR HEMOGLOBIN 29.9 pg (27.0-33.0); MEAN CORPUSCULAR HGB CONC 33.5 g/dL (32.0-36.0); MEAN CORPUSCULAR VOLUME 89.1 fL (79-99); PLATELET COUNT (AUTO) 263 K/uL (130-400); RED BLOOD CELL COUNT(AUTO) 3.18 MIL/uL (4.00-5.50); RED CELL DISTRIBUTION WIDTH 16.5 % (11.0-15.5); WHITE BLOOD COUNT (AUTO) 8.9 K/uL (4.8-10.8)
[2018-10-15] MEDS: BENZONATATE 100 MG CAPSULE PO SCH ×3 (04:10→21:49)
[2018-10-15 04:23] LABS: CREATININE 1.1 mg/dL (0.5-1.5); MAGNESIUM 2.1 mg/dL (1.80-2.40); PHOSPHORUS 4.3 mg/dL (2.5-4.9); POTASSIUM 4.6 mmol/L (3.5-5.1)
[2018-10-15] MEDS: GUAIFENESIN-CODEINE 5 ML SYRUP PO SCH ×4 (04:33→18:42)
[2018-10-15] MEDS: BUDESONIDE 0.5 MG/2 ML INH IH SCH ×2 (06:04→19:03)
[2018-10-15] MEDS: IPRATROPIUM/ALBUTEROL SULFATE 3 ML SOLUTION IH SCH ×4 (06:04→23:18)
[2018-10-15 07:39] VITALS: BP 143/73
[2018-10-15] MEDS: LEVOFLOXACIN 750 MG/D5W 150 ML 150 ML IV SCH (09:00)
[2018-10-15] MEDS: LACTULOSE 20 GM/30 ML UDCUP PO SCH ×2 (09:00→21:00)
[2018-10-15] MEDS: CALCIUM CARBON 500MG CHEW TAB PO SCH ×3 (09:00→21:46)
[2018-10-15] MEDS: FLUTICASONE PROPIONATE 50MCG/SPRAY 16 GM BOTTLE EN SCH ×2 (09:00→21:47)
[2018-10-15] MEDS: METOPROLOL TARTRATE 25 MG TAB PO SCH ×2 (10:01→21:48)
[2018-10-15] MEDS: LACTOBACILLUS RHAMNOSUS GG 1 EACH CAP.SPRINK PO SCH (10:01)
[2018-10-15] MEDS: APIXABAN 5 MG TABLET PO SCH ×2 (10:01→21:48)
[2018-10-15] MEDS: LOSARTAN 100 MG TABLET PO SCH (10:01)
[2018-10-15] MEDS: CITALOPRAM 20 MG TABLET PO SCH (10:01)
[2018-10-15] MEDS: ALPRAZOLAM 0.25 MG TABLET PO PRN (10:01)
[2018-10-15] MEDS: CETIRIZINE HCL 5 MG TABLET PO SCH (10:01)
[2018-10-15] MEDS: GUAIFENESIN 600 MG TABLET.ER PO SCH ×2 (10:01→21:48)
[2018-10-15] MEDS: MONTELUKAST SODIUM 10 MG TAB PO SCH (10:01)
[2018-10-15] MEDS: ASPIRIN 81MG TAB.CHEW PO SCH (10:02)
[2018-10-15] MEDS: DEXAMETHASONE SOD PHOSPHATE 4 MG/ML 1ML VIAL IVP SCH (10:02)
[2018-10-15] MEDS: FAMOTIDINE 20MG TAB 20 MG TAB PO SCH ×2 (10:02→21:48)
[2018-10-15 11:30] VITALS: BP 137/63
[2018-10-15] MEDS ORDERED: LEVOFLOXACIN 750 MG/D5W 150 ML 150 ML IV SCH (12:15)
[2018-10-15 16:00] VITALS: BP 137/61
[2018-10-15 19:40] VITALS: BP 125/60
[2018-10-15] MEDS: SIMVASTATIN 20 MG TABLET PO SCH (21:47)
[2018-10-15] MEDS: ZOLPIDEM TARTRATE 5 MG TAB PO PRN ×2 (21:50→21:53)
[2018-10-15 23:20] VITALS: BP 131/73
[2018-10-16] MEDS: ALPRAZOLAM 0.25 MG TABLET PO PRN (02:48)
[2018-10-16 03:40] VITALS: BP 114/50
[2018-10-16] MEDS: BENZONATATE 100 MG CAPSULE PO SCH ×3 (04:11→19:42)
[2018-10-16] MEDS: GUAIFENESIN-CODEINE 5 ML SYRUP PO SCH ×4 (06:09→23:47)
[2018-10-16] MEDS: BUDESONIDE 0.5 MG/2 ML INH IH SCH ×2 (06:41→18:52)
[2018-10-16] MEDS: IPRATROPIUM/ALBUTEROL SULFATE 3 ML SOLUTION IH SCH ×3 (06:41→18:52)
[2018-10-16 08:07] VITALS: BP 137/63
[2018-10-16] MEDS: CETIRIZINE HCL 5 MG TABLET PO SCH (08:58)
[2018-10-16] MEDS: ASPIRIN 81MG TAB.CHEW PO SCH (08:59)
[2018-10-16] MEDS: GUAIFENESIN 600 MG TABLET.ER PO SCH ×2 (08:59→19:54)
[2018-10-16] MEDS: APIXABAN 5 MG TABLET PO SCH ×2 (08:59→19:42)
[2018-10-16] MEDS: FAMOTIDINE 20MG TAB 20 MG TAB PO SCH ×2 (08:59→19:42)
[2018-10-16] MEDS: LACTOBACILLUS RHAMNOSUS GG 1 EACH CAP.SPRINK PO SCH (08:59)
[2018-10-16] MEDS: METOPROLOL TARTRATE 25 MG TAB PO SCH ×2 (08:59→19:43)
[2018-10-16] MEDS: CITALOPRAM 20 MG TABLET PO SCH (08:59)
[2018-10-16] MEDS: FLUTICASONE PROPIONATE 50MCG/SPRAY 16 GM BOTTLE EN SCH ×2 (09:00→19:43)
[2018-10-16] MEDS ORDERED: PREDNISONE 10 MG TABLET PO SCH (09:00)
[2018-10-16] MEDS: LACTULOSE 20 GM/30 ML UDCUP PO SCH ×2 (09:00→19:43)
[2018-10-16] MEDS: LOSARTAN 100 MG TABLET PO SCH (09:00)
[2018-10-16] MEDS: MONTELUKAST SODIUM 10 MG TAB PO SCH (09:00)
[2018-10-16] MEDS: CALCIUM CARBON 500MG CHEW TAB PO SCH ×3 (09:05→19:53)
[2018-10-16] MEDS: ACETAMINOPHEN 325 MG TAB PO PRN (09:06)
--- NOTE | 2018-10-16 09:40 | NUR ---
BENOIT NOTE- NO SOLARA Chart reviewed,KALYN states there is an order for possible CPT vest for home, Met w patient at bedside who up and about in room w PTX and independently. Advised pt that she no longer met criteria for [facility]- Pt wants to go with CPT and NOT go to a SNF. Forms for CPT vestr reviewed, will discuss w on rounds Addendum: 10/16/18 at 0951 by WEI PORTER RN CM Amended: Links added.
[2018-10-16] MEDS: LEVOFLOXACIN 750 MG TABLET PO SCH (10:58)
[2018-10-16 12:00] VITALS: BP 104/47
[2018-10-16 15:59] VITALS: BP 116/61
--- NOTE | 2018-10-16 17:38 | NUR ---
GALILEO GUTHRIE PAPERWORK READY TO FAX TRIED TO FAX X 2, NO RESPONSE, WILL LEAVE NOTE FOR CM IN AM
[2018-10-16] MEDS: NYSTATIN 100000 UNIT/ML 5ML UDCUP PO SCH ×2 (18:34→19:04)
[2018-10-16 19:20] VITALS: BP 121/63
[2018-10-16] MEDS: ZOLPIDEM TARTRATE 5 MG TAB PO PRN (19:42)
[2018-10-16] MEDS: SIMVASTATIN 20 MG TABLET PO SCH (19:42)
[2018-10-16] MEDS: DEXAMETHASONE SOD PHOSPHATE 4 MG/ML 1ML VIAL IVP SCH (19:43)
[2018-10-16 23:30] VITALS: BP 143/63
[2018-10-17 03:45] VITALS: BP 145/87
[2018-10-17] MEDS: BENZONATATE 100 MG CAPSULE PO SCH ×3 (04:15→20:22)
[2018-10-17 05:11] LABS: HEMATOCRIT 29.8 % (36-48); MEAN CORPUSCULAR HEMOGLOBIN 29.8 pg (27.0-33.0); MEAN CORPUSCULAR HGB CONC 33.5 g/dL (32.0-36.0); MEAN CORPUSCULAR VOLUME 88.7 fL (79-99); PLATELET COUNT (AUTO) 281 K/uL (130-400); RED BLOOD CELL COUNT(AUTO) 3.36 MIL/uL (4.00-5.50); RED CELL DISTRIBUTION WIDTH 16.8 % (11.0-15.5); WHITE BLOOD COUNT (AUTO) 12.2 K/uL (4.8-10.8)
[2018-10-17] MEDS: GUAIFENESIN-CODEINE 5 ML SYRUP PO SCH ×4 (05:45→23:55)
[2018-10-17 05:51] LABS: BAND NEUTROPHILS % (MANUAL) 1 % (0-2); LYMPHOCYTES % (MANUAL) 12 % (22-44); MAN.DIFF COMMENT-IMPRESSION MANUAL DIFFERENTIAL; MONOCYTES % (MANUAL) 2 % (2-9); PLATELET MORPHOLOGY COMMENT ADEQUATE; SEGMENTED NEUTROPHILS % 85 % (40-70)
[2018-10-17] MEDS: IPRATROPIUM/ALBUTEROL SULFATE 3 ML SOLUTION IH SCH ×4 (06:13→23:43)
[2018-10-17] MEDS: BUDESONIDE 0.5 MG/2 ML INH IH SCH ×2 (06:22→18:02)
[2018-10-17 07:25] VITALS: BP 157/70
[2018-10-17] MEDS: LOSARTAN 100 MG TABLET PO SCH (07:47)
[2018-10-17] MEDS: DEXAMETHASONE SOD PHOSPHATE 4 MG/ML 1ML VIAL IVP SCH ×2 (07:47→20:51)
[2018-10-17] MEDS: FAMOTIDINE 20MG TAB 20 MG TAB PO SCH ×2 (07:47→20:20)
[2018-10-17] MEDS: MONTELUKAST SODIUM 10 MG TAB PO SCH (07:47)
[2018-10-17] MEDS: LACTULOSE 20 GM/30 ML UDCUP PO SCH ×2 (07:47→20:34)
[2018-10-17] MEDS: METOPROLOL TARTRATE 25 MG TAB PO SCH ×2 (07:47→20:20)
[2018-10-17] MEDS: LACTOBACILLUS RHAMNOSUS GG 1 EACH CAP.SPRINK PO SCH (07:47)
[2018-10-17] MEDS: CITALOPRAM 20 MG TABLET PO SCH (07:47)
[2018-10-17] MEDS: APIXABAN 5 MG TABLET PO SCH ×2 (07:47→20:20)
[2018-10-17] MEDS: ASPIRIN 81MG TAB.CHEW PO SCH (07:47)
[2018-10-17] MEDS: GUAIFENESIN 600 MG TABLET.ER PO SCH ×2 (07:47→20:20)
[2018-10-17] MEDS: LEVOFLOXACIN 750 MG TABLET PO SCH (07:48)
[2018-10-17] MEDS: CETIRIZINE HCL 5 MG TABLET PO SCH (07:48)
[2018-10-17] MEDS: NYSTATIN 100000 UNIT/ML 5ML UDCUP PO SCH ×4 (07:49→20:21)
[2018-10-17] MEDS: CALCIUM CARBON 500MG CHEW TAB PO SCH ×3 (07:51→20:51)
[2018-10-17] MEDS: FLUTICASONE PROPIONATE 50MCG/SPRAY 16 GM BOTTLE EN SCH ×2 (09:30→20:51)
[2018-10-17 11:26] VITALS: BP 121/52
[2018-10-17] MEDS: ALPRAZOLAM 0.25 MG TABLET PO PRN ×2 (12:52→23:58)
--- NOTE | 2018-10-17 16:02 | NUR ---
CM Notes: CPT [employer] Spoke to Ed currie/ [employer], received order and clinicals this morning, currently under review. Pt pending approval and delivery. Primary nurse aware. CM to cont to follow up.
[2018-10-17 16:06] VITALS: BP 128/61
[2018-10-17 20:00] VITALS: BP 120/53
[2018-10-17] MEDS ORDERED: DEXAMETHASONE SOD PHOSPHATE 4 MG/ML 1ML VIAL ONE (20:01)
[2018-10-17] MEDS ORDERED: CALCIUM CARBONATE 500 MG TABLET ONE (20:01)
[2018-10-17] MEDS: SIMVASTATIN 20 MG TABLET PO SCH (20:20)
[2018-10-18] VITALS (7 sets, daily range): BP systolic 115–143; BP diastolic 54–74
[2018-10-18] MEDS: BENZONATATE 100 MG CAPSULE PO SCH ×3 (04:15→19:41)
[2018-10-18] MEDS: GUAIFENESIN-CODEINE 5 ML SYRUP PO SCH ×4 (06:01→23:21)
[2018-10-18] MEDS: BUDESONIDE 0.5 MG/2 ML INH IH SCH ×2 (06:33→18:04)
[2018-10-18] MEDS: IPRATROPIUM/ALBUTEROL SULFATE 3 ML SOLUTION IH SCH ×4 (06:33→23:07)
[2018-10-18] MEDS: LEVOFLOXACIN 750 MG TABLET PO SCH (08:03)
[2018-10-18] MEDS: LOSARTAN 100 MG TABLET PO SCH (08:03)
[2018-10-18] MEDS: ASPIRIN 81MG TAB.CHEW PO SCH (08:03)
[2018-10-18] MEDS: FAMOTIDINE 20MG TAB 20 MG TAB PO SCH ×2 (08:03→21:06)
[2018-10-18] MEDS: CITALOPRAM 20 MG TABLET PO SCH (08:03)
[2018-10-18] MEDS: CETIRIZINE HCL 5 MG TABLET PO SCH (08:03)
[2018-10-18] MEDS: LACTULOSE 20 GM/30 ML UDCUP PO SCH ×2 (08:03→21:00)
[2018-10-18] MEDS: APIXABAN 5 MG TABLET PO SCH ×2 (08:03→21:06)
[2018-10-18] MEDS: LACTOBACILLUS RHAMNOSUS GG 1 EACH CAP.SPRINK PO SCH (08:03)
[2018-10-18] MEDS: ARTIFICAL TEARS SOL 15 ML OU PRN ×2 (08:03→17:53)
[2018-10-18] MEDS: MONTELUKAST SODIUM 10 MG TAB PO SCH (08:03)
[2018-10-18] MEDS: METOPROLOL TARTRATE 25 MG TAB PO SCH ×2 (08:04→21:06)
[2018-10-18] MEDS: GUAIFENESIN 600 MG TABLET.ER PO SCH ×2 (08:04→21:05)
[2018-10-18] MEDS: FLUTICASONE PROPIONATE 50MCG/SPRAY 16 GM BOTTLE EN SCH ×2 (08:04→21:09)
[2018-10-18] MEDS: CALCIUM CARBON 500MG CHEW TAB PO SCH ×3 (08:07→21:05)
[2018-10-18] MEDS: DEXAMETHASONE SOD PHOSPHATE 4 MG/ML 1ML VIAL IVP SCH ×3 (08:07→21:06)
[2018-10-18] MEDS: NYSTATIN 100000 UNIT/ML 5ML UDCUP PO SCH ×4 (08:07→21:05)
[2018-10-18] MEDS: ALPRAZOLAM 0.25 MG TABLET PO PRN ×2 (08:10→23:21)
--- NOTE | 2018-10-18 14:00 | NUR ---
CM Note: CPT [employer] pending approval and delivery Spoke to Ed currie/[employer] . Still currently working on pt. Pending approval and delivery. Pt aware out of pocket fee $3,000, trying to make arrangements w/company regarding payment plans. Primary nurse aware. CM to cont to follow up.
[2018-10-18] MEDS: BENZOCAINE/MENTH/CETYLPYRD CL 1 EACH LOZENGE MM PRN (20:17)
[2018-10-18] MEDS: SIMVASTATIN 20 MG TABLET PO SCH (21:06)
[2018-10-19 04:00] VITALS: BP 141/63
[2018-10-19] MEDS: BENZONATATE 100 MG CAPSULE PO SCH ×3 (04:56→20:25)
[2018-10-19] MEDS: IPRATROPIUM/ALBUTEROL SULFATE 3 ML SOLUTION IH SCH ×4 (05:59→23:51)
[2018-10-19] MEDS: BUDESONIDE 0.5 MG/2 ML INH IH SCH ×2 (06:00→19:20)
[2018-10-19] MEDS: GUAIFENESIN-CODEINE 5 ML SYRUP PO SCH ×3 (06:30→17:45)
[2018-10-19 08:19] LABS: ABG BASE EXCESS -0.9 mmol/L (-2.0-3.0); ABG HCO3 22.4 mmol/L (21.0-28.0); ABG OXYGEN SATURATION 98.4 % (95.0-99.0); ABG PCO2 33 mmHg (32-45)
[2018-10-19] MEDS: CITALOPRAM 20 MG TABLET PO SCH (08:56)
[2018-10-19] MEDS: ASPIRIN 81MG TAB.CHEW PO SCH (08:56)
[2018-10-19] MEDS: MONTELUKAST SODIUM 10 MG TAB PO SCH (08:56)
[2018-10-19] MEDS: LEVOFLOXACIN 750 MG TABLET PO SCH (08:56)
[2018-10-19] MEDS: METOPROLOL TARTRATE 25 MG TAB PO SCH ×2 (08:56→20:27)
[2018-10-19] MEDS: CALCIUM CARBON 500MG CHEW TAB PO SCH ×3 (08:56→20:26)
[2018-10-19] MEDS: FAMOTIDINE 20MG TAB 20 MG TAB PO SCH ×2 (08:56→20:27)
[2018-10-19] MEDS: NYSTATIN 100000 UNIT/ML 5ML UDCUP PO SCH ×4 (08:56→20:25)
[2018-10-19] MEDS: LOSARTAN 100 MG TABLET PO SCH (08:56)
[2018-10-19] MEDS: APIXABAN 5 MG TABLET PO SCH ×2 (08:56→20:26)
[2018-10-19] MEDS: CETIRIZINE HCL 5 MG TABLET PO SCH (08:56)
[2018-10-19] MEDS: LACTOBACILLUS RHAMNOSUS GG 1 EACH CAP.SPRINK PO SCH (08:56)
[2018-10-19] MEDS: GUAIFENESIN 600 MG TABLET.ER PO SCH ×2 (08:56→20:27)
[2018-10-19] MEDS: DEXAMETHASONE SOD PHOSPHATE 4 MG/ML 1ML VIAL IVP SCH ×3 (08:57→20:26)
[2018-10-19] MEDS: FLUTICASONE PROPIONATE 50MCG/SPRAY 16 GM BOTTLE EN SCH ×2 (08:57→20:25)
[2018-10-19] MEDS: LACTULOSE 20 GM/30 ML UDCUP PO SCH ×2 (08:57→20:27)
[2018-10-19 09:05] VITALS: BP 132/60
[2018-10-19 11:12] VITALS: BP 134/74
--- NOTE | 2018-10-19 12:57 | NUR ---
RD Notification Patient tolerating 75gm CCD with no report of GI distress and PO intake at 100%. Patient LBM 10/18/18. Patient monitored labs: BUN 26, GFR 51, Glu 163, Ca 8.0, Alb 3.2. RD to continue to monitor. Please notify RD as nutritional concerns arise. Thank you. Addendum: 10/19/18 at [address] Amended: Links added.
--- NOTE | 2018-10-19 15:26 | NUR ---
CM Note: [employer] pending approval and delivery Spoke to Ed currie/[employer], currently working w/pt on payment plans. Pt pending approval and delivery of CPT [employer]. Primary nurse aware. CM to cont to follow up.
[2018-10-19 16:30] VITALS: BP 135/62
--- NOTE | 2018-10-19 16:55 | NUR ---
CM Note: [facility] pending ins auth CM met with pt discussed possible short tem placement for rehab as pt is still on dexamethasone IV and needing CPT. Pt agreeable, SARAI signed for [facility]. Faxed clinicals and pasrr to [facility]. Spoke to Danica, made aware pt pending MD order at this time, will fax order once MD generate ,will come eval pt. Pt pending ins auth and acceptance. Primary nurse aware. CM to cont to follow up.
[2018-10-19] MEDS: ALPRAZOLAM 0.25 MG TABLET PO PRN (17:51)
[2018-10-19 20:25] VITALS: BP 143/65
[2018-10-19] MEDS: SIMVASTATIN 20 MG TABLET PO SCH (20:27)
[2018-10-19] MEDS ORDERED: DEXAMETHASONE SOD PHOSPHATE 4 MG/ML 1ML VIAL IVP SCH (21:00)
[2018-10-20] VITALS (7 sets, daily range): BP systolic 122–171; BP diastolic 58–73
[2018-10-20] MEDS: GUAIFENESIN-CODEINE 5 ML SYRUP PO SCH ×4 (00:04→18:38)
[2018-10-20] MEDS: ZOLPIDEM TARTRATE 5 MG TAB PO PRN (00:45)
[2018-10-20] MEDS: BENZONATATE 100 MG CAPSULE PO SCH ×3 (04:52→21:40)
[2018-10-20] MEDS: IPRATROPIUM/ALBUTEROL SULFATE 3 ML SOLUTION IH SCH ×4 (06:41→23:28)
[2018-10-20] MEDS: BUDESONIDE 0.5 MG/2 ML INH IH SCH ×2 (06:42→18:53)
[2018-10-20] MEDS: LACTULOSE 20 GM/30 ML UDCUP PO SCH ×2 (09:00→21:00)
[2018-10-20] MEDS: APIXABAN 5 MG TABLET PO SCH ×2 (09:27→21:40)
[2018-10-20] MEDS: CALCIUM CARBON 500MG CHEW TAB PO SCH ×3 (09:27→21:40)
[2018-10-20] MEDS: FAMOTIDINE 20MG TAB 20 MG TAB PO SCH ×2 (09:27→21:40)
[2018-10-20] MEDS: LEVOFLOXACIN 750 MG TABLET PO SCH (09:28)
[2018-10-20] MEDS: GUAIFENESIN 600 MG TABLET.ER PO SCH ×2 (09:28→21:40)
[2018-10-20] MEDS: ASPIRIN 81MG TAB.CHEW PO SCH (09:28)
[2018-10-20] MEDS: NYSTATIN 100000 UNIT/ML 5ML UDCUP PO SCH ×4 (09:28→21:41)
[2018-10-20] MEDS: LACTOBACILLUS RHAMNOSUS GG 1 EACH CAP.SPRINK PO SCH (09:28)
[2018-10-20] MEDS: LOSARTAN 100 MG TABLET PO SCH (09:28)
[2018-10-20] MEDS: METOPROLOL TARTRATE 25 MG TAB PO SCH ×2 (09:28→21:51)
[2018-10-20] MEDS: CITALOPRAM 20 MG TABLET PO SCH (09:28)
[2018-10-20] MEDS: CETIRIZINE HCL 5 MG TABLET PO SCH (09:28)
[2018-10-20] MEDS: DEXAMETHASONE SOD PHOSPHATE 4 MG/ML 1ML VIAL IVP SCH ×3 (09:29→21:41)
[2018-10-20] MEDS: FLUTICASONE PROPIONATE 50MCG/SPRAY 16 GM BOTTLE EN SCH ×2 (09:29→21:41)
[2018-10-20] MEDS: MONTELUKAST SODIUM 10 MG TAB PO SCH (09:29)
[2018-10-20] MEDS: ALPRAZOLAM 0.25 MG TABLET PO PRN ×2 (09:50→21:47)
--- NOTE | 2018-10-20 17:18 | NUR ---
CM Note: [facility] pending ins auth Jamar Mishra received faxed MD order. Will forward to insurance. As Per Dr Torre dexamethasone IV 4mg Q4 x 1 week. Pt pending ins auth at this time. Primary nurse aware. CM to cont to follow up.
[2018-10-20] MEDS: SODIUM CHLORIDE 3% FOR INHALATION 4 ML/AMP VIAL.NEB IH SCH ×2 (18:53→23:28)
[2018-10-20] MEDS: SIMVASTATIN 20 MG TABLET PO SCH (21:41)
[2018-10-20] MEDS: ARTIFICAL TEARS SOL 15 ML OU PRN (21:42)
[2018-10-21] MEDS: ZOLPIDEM TARTRATE 5 MG TAB PO PRN ×2 (00:45→22:25)
[2018-10-21] MEDS: GUAIFENESIN-CODEINE 5 ML SYRUP PO SCH ×5 (00:45→22:26)
[2018-10-21 02:36] VITALS: BP 202/88
--- NOTE | 2018-10-21 02:42 | NUR ---
NOTE PATIENT REPORTS FEELING CHEST PAIN AND IS GRASPING MID AREA OF CHEST. BP CHECKED 202/89. DENIES SOB. O2 SAT 97%. CONTACTED Ana TABOR (ONCALL FOR HOSPITALIST) TO NOTIFY AND GIVE REPORT ON PATIENT. HE SAID JUST TO MEDICATE WITH NITRO SL AND REASSESS. MEDICATE WITH HYDRALAZINE IF NEEDED WELL. NOTIFIED PATIENT AND GAVE HER FIRST NITRO SL TAB.
[2018-10-21] MEDS: NITROGLYCERIN 0.4 MG SL TAB SL PRN ×2 (02:48→02:52)
[2018-10-21 02:51] VITALS: BP 125/58
--- NOTE | 2018-10-21 02:52 | NUR ---
NOTE PATIENT REPORTS CHEST PAIN IS NOW DOWN TO LEVEL 2 AND FEELS LIKE A DULL ACHE NOW. CHECKED HER BP 125/58. MEDICATED WITH ANOTHER NITRO SL AND DID NOT GIVE HYDRALAZINE BP IMPROVED.
--- NOTE | 2018-10-21 02:57 | NUR ---
NOTE PATIENT NOW REPORTS CHEST PAIN IS COMPLETELY RELIEVED. CHECKED BP 119/60 HR 76 O2 SAT 99%.
[2018-10-21] MEDS: BENZONATATE 100 MG CAPSULE PO SCH ×3 (05:30→20:20)
--- NOTE | 2018-10-21 05:30 | NUR ---
NOTE PATIENT AWAKE NOW. REPORT SHE HAS NOT HAD A REOCCURRENCE OF CHEST PAIN.
[2018-10-21 05:50] LABS: HEMATOCRIT 26.9 % (36-48); MEAN CORPUSCULAR HEMOGLOBIN 30.5 pg (27.0-33.0); MEAN CORPUSCULAR HGB CONC 34.6 g/dL (32.0-36.0); MEAN CORPUSCULAR VOLUME 88.1 fL (79-99); PLATELET COUNT (AUTO) 248 K/uL (130-400); RED BLOOD CELL COUNT(AUTO) 3.05 MIL/uL (4.00-5.50); RED CELL DISTRIBUTION WIDTH 16.8 % (11.0-15.5); WHITE BLOOD COUNT (AUTO) 10.2 K/uL (4.8-10.8)
[2018-10-21 06:08] LABS: CREATININE 1.5 mg/dL (0.5-1.5); MAGNESIUM 2.2 mg/dL (1.80-2.40); PHOSPHORUS 4.4 mg/dL (2.5-4.9); POTASSIUM 4.9 mmol/L (3.5-5.1)
[2018-10-21] MEDS: IPRATROPIUM/ALBUTEROL SULFATE 3 ML SOLUTION IH SCH ×4 (06:38→23:31)
[2018-10-21] MEDS: SODIUM CHLORIDE 3% FOR INHALATION 4 ML/AMP VIAL.NEB IH SCH ×4 (06:38→23:31)
[2018-10-21] MEDS: BUDESONIDE 0.5 MG/2 ML INH IH SCH ×2 (06:38→18:46)
[2018-10-21 07:30] VITALS: BP 133/62
[2018-10-21] MEDS: LACTULOSE 20 GM/30 ML UDCUP PO SCH ×2 (09:00→20:22)
[2018-10-21] MEDS: FLUTICASONE PROPIONATE 50MCG/SPRAY 16 GM BOTTLE EN SCH ×2 (09:00→20:29)
[2018-10-21] MEDS: LACTOBACILLUS RHAMNOSUS GG 1 EACH CAP.SPRINK PO SCH (09:37)
[2018-10-21] MEDS: LEVOFLOXACIN 750 MG TABLET PO SCH (09:37)
[2018-10-21] MEDS: BENZOCAINE/MENTH/CETYLPYRD CL 1 EACH LOZENGE MM PRN ×2 (09:37→16:53)
[2018-10-21] MEDS: GUAIFENESIN 600 MG TABLET.ER PO SCH ×2 (09:37→20:22)
[2018-10-21] MEDS: CITALOPRAM 20 MG TABLET PO SCH (09:37)
[2018-10-21] MEDS: ASPIRIN 81MG TAB.CHEW PO SCH (09:37)
[2018-10-21] MEDS: CALCIUM CARBON 500MG CHEW TAB PO SCH ×3 (09:38→20:20)
[2018-10-21] MEDS: LOSARTAN 100 MG TABLET PO SCH (09:38)
[2018-10-21] MEDS: NYSTATIN 100000 UNIT/ML 5ML UDCUP PO SCH ×4 (09:38→20:20)
[2018-10-21] MEDS: CETIRIZINE HCL 5 MG TABLET PO SCH (09:38)
[2018-10-21] MEDS: MONTELUKAST SODIUM 10 MG TAB PO SCH (09:38)
[2018-10-21] MEDS: DEXAMETHASONE SOD PHOSPHATE 4 MG/ML 1ML VIAL IVP SCH ×3 (09:38→20:21)
[2018-10-21] MEDS: METOPROLOL TARTRATE 25 MG TAB PO SCH ×2 (09:38→20:20)
[2018-10-21] MEDS: FAMOTIDINE 20MG TAB 20 MG TAB PO SCH ×2 (09:38→20:20)
[2018-10-21] MEDS: APIXABAN 5 MG TABLET PO SCH ×2 (09:38→20:20)
[2018-10-21 11:00] VITALS: BP 120/60
[2018-10-21] MEDS: ALPRAZOLAM 0.25 MG TABLET PO PRN ×2 (11:17→22:25)
[2018-10-21 16:00] VITALS: BP 139/69
--- NOTE | 2018-10-21 18:00 | NUR ---
DR. CHACHA MORRIS HERE TO SEE PATIENT. INFORMED MD THAT PATIENT HAS BEEN ACCEPTED TO [facility], BUT PATIENT REPORTS TO HAVE CHANGED HER MIND IS THINKING ABOUT WANTING TO GO HOME. PATIENT WANTS TO TALK TO HER DAUGHTER FIRST, SO APPARENTLY PATIENT IS UNDECIDED AT THE MOMENT.
[2018-10-21 19:46] VITALS: BP 149/64
[2018-10-21] MEDS: SIMVASTATIN 20 MG TABLET PO SCH (20:20)
[2018-10-22 00:01] VITALS: BP 147/67
[2018-10-22 04:00] VITALS: BP 172/76
[2018-10-22] MEDS: BENZONATATE 100 MG CAPSULE PO SCH ×3 (04:15→21:07)
[2018-10-22 05:32] LABS: HEMATOCRIT 28.4 % (36-48); MEAN CORPUSCULAR HEMOGLOBIN 29.4 pg (27.0-33.0); MEAN CORPUSCULAR HGB CONC 33.2 g/dL (32.0-36.0); MEAN CORPUSCULAR VOLUME 88.6 fL (79-99); PLATELET COUNT (AUTO) 279 K/uL (130-400); RED BLOOD CELL COUNT(AUTO) 3.21 MIL/uL (4.00-5.50); RED CELL DISTRIBUTION WIDTH 17.3 % (11.0-15.5); WHITE BLOOD COUNT (AUTO) 10.2 K/uL (4.8-10.8)
[2018-10-22 05:45] LABS: CREATININE 1.1 mg/dL (0.5-1.5); MAGNESIUM 2.4 mg/dL (1.80-2.40); PHOSPHORUS 4.5 mg/dL (2.5-4.9); POTASSIUM 4.8 mmol/L (3.5-5.1)
[2018-10-22] MEDS: IPRATROPIUM/ALBUTEROL SULFATE 3 ML SOLUTION IH SCH ×4 (06:16→23:17)
[2018-10-22] MEDS: BUDESONIDE 0.5 MG/2 ML INH IH SCH ×2 (06:16→18:48)
[2018-10-22] MEDS: SODIUM CHLORIDE 3% FOR INHALATION 4 ML/AMP VIAL.NEB IH SCH ×4 (06:16→23:05)
[2018-10-22 08:00] VITALS: BP 136/73
[2018-10-22] MEDS: FLUTICASONE PROPIONATE 50MCG/SPRAY 16 GM BOTTLE EN SCH ×2 (09:00→21:07)
[2018-10-22] MEDS: LACTULOSE 20 GM/30 ML UDCUP PO SCH ×2 (09:00→20:03)
[2018-10-22] MEDS: DEXAMETHASONE SOD PHOSPHATE 4 MG/ML 1ML VIAL IVP SCH ×3 (09:46→21:06)
[2018-10-22] MEDS: CITALOPRAM 20 MG TABLET PO SCH (09:46)
[2018-10-22] MEDS: APIXABAN 5 MG TABLET PO SCH ×2 (09:46→21:07)
[2018-10-22] MEDS: LACTOBACILLUS RHAMNOSUS GG 1 EACH CAP.SPRINK PO SCH (09:46)
[2018-10-22] MEDS: NYSTATIN 100000 UNIT/ML 5ML UDCUP PO SCH ×4 (09:47→21:07)
[2018-10-22] MEDS: MONTELUKAST SODIUM 10 MG TAB PO SCH (09:47)
[2018-10-22] MEDS: CALCIUM CARBON 500MG CHEW TAB PO SCH ×3 (09:47→21:08)
[2018-10-22] MEDS: GUAIFENESIN 600 MG TABLET.ER PO SCH ×2 (09:47→21:08)
[2018-10-22] MEDS: ASPIRIN 81MG TAB.CHEW PO SCH (09:47)
[2018-10-22] MEDS: FAMOTIDINE 20MG TAB 20 MG TAB PO SCH ×2 (09:47→21:08)
[2018-10-22] MEDS: CETIRIZINE HCL 5 MG TABLET PO SCH (09:47)
[2018-10-22] MEDS: LOSARTAN 100 MG TABLET PO SCH (09:47)
[2018-10-22] MEDS: METOPROLOL TARTRATE 25 MG TAB PO SCH ×2 (09:47→21:08)
[2018-10-22] MEDS: LEVOFLOXACIN 750 MG TABLET PO SCH (09:47)
[2018-10-22] MEDS: GUAIFENESIN-CODEINE 5 ML SYRUP PO SCH ×3 (09:56→23:40)
[2018-10-22] MEDS: ALPRAZOLAM 0.25 MG TABLET PO PRN ×2 (09:56→21:14)
[2018-10-22 12:00] VITALS: BP 137/67
[2018-10-22] MEDS: GABAPENTIN 100 MG CAPSULE PO SCH ×2 (14:00→21:07)
--- NOTE | 2018-10-22 14:00 | NUR ---
cm note met with patient and discussed acceptance at [facility] and rehab, and states that she still has some questions, wishes to speak to rep, call made to Verna friedman with [facility], and states she will call and speak to pt. informed pt that she has been accepted and insurance has authorized her at [facility] and authorization good for only 72 hrs. and pt states that she is agreeable to go to snf. states she will speak to md regarding timing of discharge as possible wednesday as previously told by md. updated primary nurse.
--- NOTE | 2018-10-22 14:00 | NUR ---
cm note call made to cheo cota at [employer] cell [phone]. regarding pt's vest, jazmyne marcelomail. regarding timing of vest delivery. as per pt states that the copay is $3000 for the vest, and that the company was trying to workout assistance for the copay for her. updated md of above, and that vest not available for pt yet, and that not sure if they can provide it while she is at a snf level of care, probably until after she returns home. but will verify with them when able to reach [facility] rep. verbalizes understanding. also, updated pt on approval for snf in place.
[2018-10-22 15:40] VITALS: BP 123/57
[2018-10-22 20:00] VITALS: BP 149/62
[2018-10-22] MEDS: SIMVASTATIN 20 MG TABLET PO SCH (21:08)
[2018-10-23 00:03] VITALS: BP 149/66
[2018-10-23 03:45] VITALS: BP 134/71
[2018-10-23] MEDS: BENZONATATE 100 MG CAPSULE PO SCH ×3 (04:51→21:19)
[2018-10-23] MEDS: BENZOCAINE/MENTH/CETYLPYRD CL 1 EACH LOZENGE MM PRN ×2 (04:51→18:42)
[2018-10-23] MEDS: GUAIFENESIN-CODEINE 5 ML SYRUP PO SCH ×3 (04:51→18:11)
[2018-10-23] MEDS: IPRATROPIUM/ALBUTEROL SULFATE 3 ML SOLUTION IH SCH ×4 (06:32→23:32)
[2018-10-23] MEDS: BUDESONIDE 0.5 MG/2 ML INH IH SCH ×2 (06:32→17:29)
[2018-10-23] MEDS: SODIUM CHLORIDE 3% FOR INHALATION 4 ML/AMP VIAL.NEB IH SCH ×4 (06:32→23:33)
[2018-10-23 08:00] VITALS: BP 158/72
[2018-10-23] MEDS: LACTULOSE 20 GM/30 ML UDCUP PO SCH ×2 (09:00→21:00)
[2018-10-23] MEDS: FLUTICASONE PROPIONATE 50MCG/SPRAY 16 GM BOTTLE EN SCH ×2 (10:54→21:25)
[2018-10-23] MEDS: DEXAMETHASONE SOD PHOSPHATE 4 MG/ML 1ML VIAL IVP SCH ×3 (10:54→21:16)
[2018-10-23] MEDS: LACTOBACILLUS RHAMNOSUS GG 1 EACH CAP.SPRINK PO SCH (10:54)
[2018-10-23] MEDS: CITALOPRAM 20 MG TABLET PO SCH (10:55)
[2018-10-23] MEDS: APIXABAN 5 MG TABLET PO SCH ×2 (10:55→21:16)
[2018-10-23] MEDS: METOPROLOL TARTRATE 25 MG TAB PO SCH ×2 (10:55→21:16)
[2018-10-23] MEDS: CALCIUM CARBON 500MG CHEW TAB PO SCH ×3 (10:55→21:17)
[2018-10-23] MEDS: FAMOTIDINE 20MG TAB 20 MG TAB PO SCH ×2 (10:55→21:17)
[2018-10-23] MEDS: LOSARTAN 100 MG TABLET PO SCH (10:55)
[2018-10-23] MEDS: ASPIRIN 81MG TAB.CHEW PO SCH (10:55)
[2018-10-23] MEDS: GUAIFENESIN 600 MG TABLET.ER PO SCH ×2 (10:56→21:16)
[2018-10-23] MEDS: LEVOFLOXACIN 750 MG TABLET PO SCH (10:56)
[2018-10-23] MEDS: CETIRIZINE HCL 5 MG TABLET PO SCH (10:56)
[2018-10-23] MEDS: MONTELUKAST SODIUM 10 MG TAB PO SCH (10:56)
[2018-10-23] MEDS: NYSTATIN 100000 UNIT/ML 5ML UDCUP PO SCH ×4 (10:58→21:17)
[2018-10-23] MEDS: GABAPENTIN 100 MG CAPSULE PO SCH ×3 (11:06→21:17)
[2018-10-23 12:00] VITALS: BP 128/64
[2018-10-23] MEDS: ALPRAZOLAM 0.25 MG TABLET PO PRN (14:18)
[2018-10-23 16:00] VITALS: BP 133/58
--- NOTE | 2018-10-23 17:00 | NUR ---
CHEST PAIN PATIENT REPORTS FEELING "PAIN TO CHEST, FEELS LIKE A PRESSURE." PATIENT IS SITTING UP IN CHAIR, WITH O2 AT 2L PER NASAL CANNULA. ADMINISTERED NITROGLYCERIN 0.4MG SL. STAYED WITH PATIENT TO MONITOR EFFECTIVENESS OF MEDICATIONS. APPROXIMATELY 5 MINUTES LATER, PATIENT REPORTS CHEST PAIN INTENSITY IS DECREASING. VITAL SIGNS OBTAINED BP 126/63, HR 76, RR 20, 02 SAT 97% AT 2L VIA NASAL CANNULA. WILL CONTINUE TO MONITOR. PATIENT STATES "FEELING BETTER." WILL CONTINUE TO MONITOR.
[2018-10-23] MEDS: NITROGLYCERIN 0.4 MG SL TAB SL PRN (17:01)
[2018-10-23 20:00] VITALS: BP 107/52
[2018-10-23] MEDS: SIMVASTATIN 20 MG TABLET PO SCH (21:19)
[2018-10-24] VITALS: BP 135/66
[2018-10-24] MEDS: GUAIFENESIN-CODEINE 5 ML SYRUP PO SCH ×3 (00:18→17:34)
[2018-10-24] MEDS: ZOLPIDEM TARTRATE 5 MG TAB PO PRN (00:18)
[2018-10-24 04:00] VITALS: BP 149/73
[2018-10-24] MEDS: BENZONATATE 100 MG CAPSULE PO SCH ×2 (04:15→17:35)
[2018-10-24] MEDS: ALPRAZOLAM 0.25 MG TABLET PO PRN ×2 (05:11→20:37)
[2018-10-24] MEDS: SODIUM CHLORIDE 3% FOR INHALATION 4 ML/AMP VIAL.NEB IH SCH ×4 (06:40→22:59)
[2018-10-24] MEDS: BUDESONIDE 0.5 MG/2 ML INH IH SCH ×2 (06:40→18:35)
[2018-10-24] MEDS: IPRATROPIUM/ALBUTEROL SULFATE 3 ML SOLUTION IH SCH ×4 (06:40→22:59)
[2018-10-24 07:49] VITALS: BP 153/87
[2018-10-24] MEDS: LACTULOSE 20 GM/30 ML UDCUP PO SCH (09:00)
[2018-10-24] MEDS: CITALOPRAM 20 MG TABLET PO SCH (09:00)
[2018-10-24] MEDS: CALCIUM CARBON 500MG CHEW TAB PO SCH ×2 (09:01→17:37)
[2018-10-24] MEDS: GABAPENTIN 100 MG CAPSULE PO SCH ×3 (09:01→20:33)
[2018-10-24] MEDS: LOSARTAN 100 MG TABLET PO SCH (09:01)
[2018-10-24] MEDS: APIXABAN 5 MG TABLET PO SCH ×2 (09:02→20:32)
[2018-10-24] MEDS: ASPIRIN 81MG TAB.CHEW PO SCH (09:02)
[2018-10-24] MEDS: FAMOTIDINE 20MG TAB 20 MG TAB PO SCH ×2 (09:02→20:33)
[2018-10-24] MEDS: METOPROLOL TARTRATE 25 MG TAB PO SCH ×2 (09:02→20:33)
[2018-10-24] MEDS: CETIRIZINE HCL 5 MG TABLET PO SCH (09:02)
[2018-10-24] MEDS: MONTELUKAST SODIUM 10 MG TAB PO SCH (09:03)
[2018-10-24] MEDS: LACTOBACILLUS RHAMNOSUS GG 1 EACH CAP.SPRINK PO SCH (09:03)
[2018-10-24] MEDS: DEXAMETHASONE SOD PHOSPHATE 4 MG/ML 1ML VIAL IVP SCH ×2 (09:04→17:35)
[2018-10-24] MEDS: NYSTATIN 100000 UNIT/ML 5ML UDCUP PO SCH ×3 (09:07→17:34)
[2018-10-24] MEDS: GUAIFENESIN 600 MG TABLET.ER PO SCH ×2 (09:08→20:32)
[2018-10-24] MEDS: LEVOFLOXACIN 750 MG TABLET PO SCH (09:08)
[2018-10-24] MEDS: FLUTICASONE PROPIONATE 50MCG/SPRAY 16 GM BOTTLE EN SCH (09:10)
[2018-10-24 11:00] VITALS: BP 129/52
[2018-10-24 16:00] VITALS: BP 132/61
[2018-10-24] MEDS ORDERED: IPRA3AMP24 IH (17:40)
[2018-10-24] MEDS ORDERED: DEXA41I IVP (17:40)
[2018-10-24] MEDS ORDERED: BENZ-51 PO (17:40)
[2018-10-24] MEDS ORDERED: LOSA100T2 PO (17:40)
[2018-10-24] MEDS ORDERED: GABA100C PO (17:40)
[2018-10-24] MEDS ORDERED: BUDE0.5A3 IH (17:40)
--- NOTE | 2018-10-24 18:00 | NUR ---
PT DISCHARGE TO SNF AT [facility] PENDING TRANSFER TO [facility] BY STAFF. USING TEACH BACK TECHNIQUE RE; NEW MEDS, HOME MEDS, S/S TO WATCH FOR AND WHEN TO CALL MD OR 911. FOLLOW UP AT [facility]. CONTINUE WITH CARE AT [facility] BREWSTER RECOMMENDED BY YOUR ATTENDING PHYSICIAN. AFTER DISCHARGE HOME FOLLOW UP WITH YOUR PRIMARY DOCTOR IN 1-2 WEEKS. IF HAVING SHORTNESS OF BREATH OR CHEST PAIN THAT DOES NOT RESOLVE WITH REST CALL 911. Please refer to medication reconciliation sheet for full details on, medications, doses, and frequency of new medications. Discontinued and, continued home medications.> DC FOLLOW UP: <She'll be discharged to [facility] and, be admitted under Dr. Guido Torre Simone service
[2018-10-24 19:00] VITALS: BP 134/60
[2018-10-24] MEDS: SIMVASTATIN 20 MG TABLET PO SCH (20:33)
[2018-10-25 00:06] VITALS: BP 139/62
--- NOTE | 2018-10-25 01:05 | NUR ---
EMS ARRIVED TO EMPLOYEE OPERATIONS EXAMINER PATIENT
== END 2018-10-25 01:16 | DRG 193 ==
LOC: EDH 11:16 → EDHIP 16:10 → 2AH 18:20 → 4CH 10-11 13:17 → 4BH 10-12 18:30
PROVIDERS: ADMIT Internal Medicine; ATTEND Internal Medicine
PROC: 5A09357 Assistance with Respiratory Ventilation, Less than 24 Consecutive Hours, Continuous Positive Airway Pressure (ICD-10-PCS; principal; 2018-10-07)
PROC: 5A09357 Assistance with Respiratory Ventilation, Less than 24 Consecutive Hours, Continuous Positive Airway Pressure (ICD-10-PCS; 2018-10-08)
DX: J18.9 Pneumonia, unspecified organism (principal); J96.21 Acute and chronic respiratory failure with hypoxia; J96.22 Acute and chronic respiratory failure with hypercapnia; B37.0 Candidal stomatitis; I31.3 Pericardial effusion (noninflammatory); J44.1 Chronic obstructive pulmonary disease with (acute) exacerbation; J44.0 Chronic obstructive pulmonary disease with (acute) lower respiratory infection; E11.65 Type 2 diabetes mellitus with hyperglycemia; Z99.81 Dependence on supplemental oxygen; E78.00 Pure hypercholesterolemia, unspecified; E78.5 Hyperlipidemia, unspecified; F41.9 Anxiety disorder, unspecified; I11.0 Hypertensive heart disease with heart failure; I25.10 Atherosclerotic heart disease of native coronary artery without angina pectoris; J32.9 Chronic sinusitis, unspecified; J43.9 Emphysema, unspecified; M41.9 Scoliosis, unspecified; T17.990A Other foreign object in respiratory tract, part unspecified in causing asphyxiation, initial encounter; X58.XXXA Exposure to other specified factors, initial encounter; T38.0X5A Adverse effect of glucocorticoids and synthetic analogues, initial encounter; Z79.51 Long term (current) use of inhaled steroids; Z79.899 Other long term (current) drug therapy; Z82.0 Family history of epilepsy and other diseases of the nervous system; Z82.49 Family history of ischemic heart disease and other diseases of the circulatory system; Z82.5 Family history of asthma and other chronic lower respiratory diseases; Z83.3 Family history of diabetes mellitus; Z87.891 Personal history of nicotine dependence; Z90.49 Acquired absence of other specified parts of digestive tract; Z88.0 Allergy status to penicillin; Z88.8 Allergy status to other drugs, medicaments and biological substances; Z91.030 Bee allergy status; Z91.041 Radiographic dye allergy status; Y93.89 Activity, other specified; Y92.89 Other specified places as the place of occurrence of the external cause; Y99.8 Other external cause status
CPT/HCPCS: 36415; 36600; 71045; 71250; 80048; 80053; 81001; 82040; 82550; 82803; 82948; 83605; 83735; 83874; 83880; 84100; 84145; 84484; 85025; 85027; 85610; 85730; 87040; 87071; 87077; 87088; 87186; 87205; 87486; 87581; 87633; 87798; 93005; 94640; 94660; 94664; 94667; 94668; 97039; 99291; G0378; J0360; J1100; J1650; J1956; J2920; J2930; J3475; J3490; J7512

== ENCOUNTER 2019-04-19 12:33 | Inpatient (IN) | payer OTHER ==
[~2019-04-19] VITALS: Ht 157.5 cm; Wt 79.9 kg
[~2019-04-19 12:33] MED LIST changes: +ACET-2247 PO; -ALPR0.255 PO; +ASPI-555 PO; +CETI10TA57 PO; +FERR-82 PO; +LOSA100T2 PO; -LOSA50TA2 PO; -MONT10TA24 PO; +OMEP-50 PO; -OMEP20CA10 PO; +ONDA4TAB10 PO; -PRAV80TA21 PO; +SIMV80TA91 PO; -[UNRECOGNIZED DRUG - CODE] OU
[2019-04-19 12:46] LABS: ABG BASE EXCESS -1.9 mmol/L (-2.0-3.0); ABG HCO3 24.6 mmol/L (21.0-28.0); ABG OXYGEN SATURATION 96.9 % (95.0-99.0); ABG PCO2 49 mmHg (32-45)
[2019-04-19] MEDS ORDERED: IPRATROPIUM/ALBUTEROL SULFATE 3 ML SOLUTION IH ONE (12:51)
[2019-04-19 12:53] LABS: BASOPHILS % (AUTO) 0.8 % (0.0-5.0); EOSINOPHILS % (AUTO) 5.6 % (0.0-8.0); HEMATOCRIT 41.9 % (36-48); LYMPHOCYTES % (AUTO) 24.8 % (21.0-51.0); MEAN CORPUSCULAR HEMOGLOBIN 27.4 pg (27.0-33.0); MEAN CORPUSCULAR HGB CONC 32.4 g/dL (32.0-36.0); MEAN CORPUSCULAR VOLUME 84.7 fL (79-99); MONOCYTES % (AUTO) 8.8 % (3.0-13.0); NUCLEATED RED BLOOD CELLS 0.1 % (0.0-0.19); PLATELET COUNT (AUTO) 338 K/uL (130-400); RED BLOOD CELL COUNT(AUTO) 4.95 MIL/uL (4.00-5.50); RED CELL DISTRIBUTION WIDTH 16.8 % (11.0-15.5); WHITE BLOOD COUNT (AUTO) 8.3 K/uL (4.8-10.8)
[2019-04-19 13:13] LABS: POTASSIUM 4.3 mmol/L (3.5-5.1)
[2019-04-19 13:16] LABS: ALBUMIN 3.5 g/dL (3.5-5.0); BILIRUBIN,TOTAL 0.2 mg/dL (0.2-1.0); INR 1.02 (0.85-1.15); PARTIAL THROMBOPLASTIN TIME 25.7 SEC (26.3-35.5); PROTHROMBIN TIME 10.7 SEC (9.6-11.6); TOTAL PROTEIN, SERUM 6.9 g/dL (6.0-8.3)
[2019-04-19 13:47] LABS: B-TYPE NATRIURETIC PEPTIDE 134 pg/mL (0-100)
[2019-04-19] MEDS ORDERED: MEROPENEM 1 GM VIAL ONE (13:59)
[2019-04-19] MEDS ORDERED: SODIUM CHLORIDE 0.9% 100 ML IV ONE (14:00)
[2019-04-19] MEDS ORDERED: SODIUM CHLORIDE 0.9% 500ML 500 ML IV ONE (14:09)
[2019-04-19] MEDS ORDERED: ONDANSETRON HCL 4 MG/2 ML VIAL IV PRN (16:00)
[2019-04-19] MEDS ORDERED: ACETAMINOPHEN 325 MG TAB PO PRN ×2 (16:00)
[2019-04-19] MEDS ORDERED: FUROSEMIDE 10 MG/ML 4ML VIAL IV SCH (16:45)
[2019-04-19 16:50] VITALS: BP 122/57
[2019-04-19] MEDS ORDERED: DEXTROSE 50%-WATER 50 ML DISP.SYRIN IV PRN (17:00)
[2019-04-19] MEDS ORDERED: GLUCAGON 1MG KIT 1 MG ML IM PRN (17:00)
[2019-04-19] MEDS ORDERED: SIMV80TA91 PO (17:08)
[2019-04-19] MEDS ORDERED: LOSA100T58 PO (17:08)
[2019-04-19] MEDS ORDERED: ASPI-1197 PO (17:08)
[2019-04-19] MEDS ORDERED: MONT10TA21 PO (17:08)
[2019-04-19] MEDS ORDERED: CITA-107 PO (17:08)
[2019-04-19] MEDS: METHYLPREDNISOLONE SOD SUCC 125MG/2ML VIAL IV SCH (17:22)
[2019-04-19] MEDS: METRONIDAZOLE 500MG/100ML BAG 100 ML IV SCH (17:23)
[2019-04-19] MEDS: CEFEPIME HCL 2 GM VIAL IVP SCH (17:23)
--- NOTE | 2019-04-19 17:30 | NUR ---
ARRIVAL TO FLOOR PT IS AAOX3 DENIES CP DENIES SOB WHILE AT REST, CURRENTLY ON BIPAP, TOLERATING WELL. MEDS GIVEN ORDERED. FAMILY IS AT BEDSIDE, CALL LIGHT WITHIN REACH.
[2019-04-19] MEDS ORDERED: IPRATROPIUM/ALBUTEROL SULFATE 3 ML SOLUTION IH SCH (18:00)
[2019-04-19] MEDS: ACETYLCYSTEINE 10% 100MG/ML 4ML VIAL IH SCH ×2 (18:18→23:13)
[2019-04-19 19:00] VITALS: BP 110/60
[2019-04-19] MEDS: FAMOTIDINE/PF 20 MG/2 ML VIAL IV SCH (20:23)
[2019-04-19] MEDS: BENZONATATE 100 MG CAPSULE PO SCH (20:23)
--- NOTE | 2019-04-19 20:50 | NUR ---
RED TINGE SPUTUM SHOWED TO ME BY PT, WHEN SHE COUGHS. D-DIMER RESULTS ARE 2,607 EJ DICKSON HOSPITALIST
--- NOTE | 2019-04-19 21:00 | NUR ---
HOSPITALIST (BRYNN) RETURNED CALL, NEW ORDER OF LOVENOX 1MG/PER KG SQ BID FOR POSSIBLE PE D/T D-DIMER OF 2,607. CONSULT PULMONARY. NEW ORDER OF RESTORIL ONE TIME DOSE. DISCONTINUE LOVENOX 30MG.
--- NOTE | 2019-04-19 21:20 | NUR ---
HOSPITALIST BRYNN ASSESSING PT AND SPEAKING TO HER. INFORMED HER OF NEW LOVENOX DOSE AND WAITING FOR PULMONARY CONSULT AND PENDING V/Q SCAN FOR THE MORNING.
[2019-04-19 21:23] LABS: APPEARANCE,URINE Clear (CLEAR); BILIRUBIN,URINE Negative (NEGATIVE); COLOR,URINE Yellow (YELLOW); GLUCOSE, URINE (UA) Negative (NEGATIVE); KETONES,URINE Negative (NEGATIVE); LEUKOCYTE ESTERASE ,URINE Negative (NEGATIVE); NITRATE,URINE Negative (NEGATIVE); OCCULT BLOOD,URINE Negative (NEGATIVE); PROTEIN,URINE Negative (NEGATIVE); UROBILINOGEN,URINE 0.2 mg/dL (0.2-1.0)
[2019-04-19] MEDS ORDERED: TEMAZEPAM 15 MG CAPSULE PO ONE (21:30)
[2019-04-19] MEDS: INSULIN HUMULIN R 100 UNIT/ML 3ML SQ SCH (22:07)
[2019-04-19] MEDS: ENOXAPARIN SODIUM 100 MG/1 ML SQ SCH (22:17)
[2019-04-19 23:00] VITALS: BP 92/54
[2019-04-19] MEDS: IPRATROPIUM/ALBUTEROL SULFATE 3 ML SOLUTION IH SCH (23:13)
[2019-04-20] MEDS: METHYLPREDNISOLONE SOD SUCC 125MG/2ML VIAL IV SCH ×5 (01:31→20:26)
[2019-04-20] MEDS: METRONIDAZOLE 500MG/100ML BAG 100 ML IV SCH ×3 (01:31→15:11)
[2019-04-20] MEDS: IPRATROPIUM/ALBUTEROL SULFATE 3 ML SOLUTION IH SCH ×6 (01:51→23:50)
[2019-04-20 04:00] VITALS: BP 125/53
[2019-04-20 04:27] LABS: BASOPHILS % (AUTO) 0.2 % (0.0-5.0); HEMATOCRIT 34.6 % (36-48); LYMPHOCYTES % (AUTO) 12.2 % (21.0-51.0); MEAN CORPUSCULAR HEMOGLOBIN 26.9 pg (27.0-33.0); MEAN CORPUSCULAR HGB CONC 32.3 g/dL (32.0-36.0); MEAN CORPUSCULAR VOLUME 83.4 fL (79-99); MONOCYTES % (AUTO) 1.3 % (3.0-13.0); NEUTROPHILS % (AUTO) 86.3 % (40.0-77.0); NUCLEATED RED BLOOD CELLS 0.1 % (0.0-0.19); PLATELET COUNT (AUTO) 308 K/uL (130-400); RED BLOOD CELL COUNT(AUTO) 4.14 MIL/uL (4.00-5.50); RED CELL DISTRIBUTION WIDTH 16.5 % (11.0-15.5); WHITE BLOOD COUNT (AUTO) 5.5 K/uL (4.8-10.8)
[2019-04-20 04:29] LABS: HEMOGLOBIN A1C 6.4 % (4.0-6.0)
[2019-04-20 04:38] LABS: ALBUMIN 3.4 g/dL (3.5-5.0); BILIRUBIN,TOTAL 0.3 mg/dL (0.2-1.0); CREATININE 1.3 mg/dL (0.5-1.5); POTASSIUM 3.7 mmol/L (3.5-5.1); TOTAL PROTEIN, SERUM 6.5 g/dL (6.0-8.3)
[2019-04-20] MEDS: CEFEPIME HCL 2 GM VIAL IVP SCH ×2 (05:15→15:11)
[2019-04-20] MEDS: ACETYLCYSTEINE 10% 100MG/ML 4ML VIAL IH SCH ×4 (06:28→23:50)
[2019-04-20] MEDS: INSULIN HUMULIN R 100 UNIT/ML 3ML SQ SCH ×4 (07:00→20:47)
[2019-04-20] MEDS: FAMOTIDINE/PF 20 MG/2 ML VIAL IV SCH ×2 (07:16→20:25)
[2019-04-20] MEDS: BENZONATATE 100 MG CAPSULE PO SCH ×3 (07:16→20:29)
[2019-04-20] MEDS: ENOXAPARIN SODIUM 100 MG/1 ML SQ SCH ×2 (07:16→20:30)
[2019-04-20 07:33] VITALS: BP 137/69
--- NOTE | 2019-04-20 08:00 | NUR ---
ASSESSMENT PT IS AAOX3 DENIES CP DENIES SOB DENIES NV NO COMPLAINTS AT THIS TIME, CURRENTLY ON O2 3LPM, RECEIVED NEB TREATMENT BY RT. AM MEDS GIVEN AND TOLERATED. CALL LIGHT WITHIN REACH. PLAN FOR VQ SCAN TODAY.
[2019-04-20] MEDS ORDERED: ENOXAPARIN SODIUM 30 MG/0.3 ML SQ SCH (09:00)
[2019-04-20] MEDS ORDERED: GUAIFENESIN-CODEINE 5 ML SYRUP PO PRN (09:30)
[2019-04-20 11:43] VITALS: BP 141/59
[2019-04-20] MEDS: MORPHINE SULFATE 2 MG/ML 1ML SYG IV PRN (12:37)
[2019-04-20 15:29] VITALS: BP 135/57
--- NOTE | 2019-04-20 16:59 | NUR ---
DC PLAN VISITED WITH PATIENT. PATIENT LIVES WITH DAUGHTER. INDEPENDENT ABLE TO PERFORM ADL'S. PATIENT HAS NO SERVICES. USES A WALKER. FEELS SAFE TO RETURN HOME. Addendum: 04/20/19 at 1702 by JEANNETTE CISSE RN CM Amended: Links added.
[2019-04-20] MEDS ORDERED: KETOROLAC TROMETHAMINE 15MG/ML IV SCH (18:30)
[2019-04-20 19:00] VITALS: BP 135/88
[2019-04-20] MEDS ORDERED: TRAM50TA4 PO (20:49)
[2019-04-20] MEDS ORDERED: CYCL5TAB PO (20:49)
[2019-04-20] MEDS ORDERED: ONDA4TAB4 PO (20:49)
[2019-04-20] MEDS ORDERED: ALPR0.255 PO (20:49)
[2019-04-20] MEDS ORDERED: CITA-107 PO (20:49)
[2019-04-20 23:00] VITALS: BP 131/64
[2019-04-21] MEDS: METRONIDAZOLE 500MG/100ML BAG 100 ML IV SCH ×3 (01:07→18:03)
[2019-04-21] MEDS: IPRATROPIUM/ALBUTEROL SULFATE 3 ML SOLUTION IH SCH ×4 (02:00→13:56)
[2019-04-21 03:00] VITALS: BP 133/68
[2019-04-21 04:01] LABS: BASOPHILS % (AUTO) 0.1 % (0.0-5.0); HEMATOCRIT 28.8 % (36-48); LYMPHOCYTES % (AUTO) 3.3 % (21.0-51.0); MEAN CORPUSCULAR HEMOGLOBIN 27.3 pg (27.0-33.0); MEAN CORPUSCULAR HGB CONC 32.7 g/dL (32.0-36.0); MEAN CORPUSCULAR VOLUME 83.5 fL (79-99); MONOCYTES % (AUTO) 2.3 % (3.0-13.0); NEUTROPHILS % (AUTO) 94.3 % (40.0-77.0); PLATELET COUNT (AUTO) 247 K/uL (130-400); RED BLOOD CELL COUNT(AUTO) 3.45 MIL/uL (4.00-5.50); RED CELL DISTRIBUTION WIDTH 16.7 % (11.0-15.5); WHITE BLOOD COUNT (AUTO) 13.6 K/uL (4.8-10.8)
[2019-04-21 04:13] LABS: CARBON DIOXIDE 30 mmol/L (21-32); CHLORIDE 99 mmol/L (101-111); CREATININE 1.2 mg/dL (0.5-1.5); GLOMERULAR FILTR. RATE CALC 46 mL/min (>60); GLUCOSE,RANDOM 192 mg/dL (70-105); PHOSPHORUS 3.8 mg/dL (2.5-4.9); POTASSIUM 3.8 mmol/L (3.5-5.1); SODIUM SERUM 135 mmol/L (136-145); UREA NITROGEN, BLOOD 26 mg/dL (7-18)
[2019-04-21] MEDS: CEFEPIME HCL 2 GM VIAL IVP SCH ×2 (04:59→18:03)
[2019-04-21] MEDS: ACETYLCYSTEINE 10% 100MG/ML 4ML VIAL IH SCH ×3 (06:00→18:00)
[2019-04-21] MEDS ORDERED: SODIUM CHLORIDE 3% FOR INHALATION 4 ML/AMP VIAL.NEB IH ONE (06:21)
[2019-04-21] MEDS ORDERED: MAGNESIUM 2GM PREMIX 50ML 50 ML IV PRN (06:30)
[2019-04-21] MEDS ORDERED: MAGNESIUM 2GM PREMIX 50ML 50 ML IV ONE (06:31)
[2019-04-21] MEDS: INSULIN HUMULIN R 100 UNIT/ML 3ML SQ SCH ×4 (06:39→21:00)
[2019-04-21] MEDS: INSULIN LISPRO 100 UNIT/ML 3ML SQ SCH ×3 (06:56→17:00)
[2019-04-21 08:06] VITALS: BP 131/71
[2019-04-21] MEDS: BENZONATATE 100 MG CAPSULE PO SCH ×3 (09:41→20:50)
[2019-04-21] MEDS: ENOXAPARIN SODIUM 100 MG/1 ML SQ SCH ×2 (09:41→20:51)
[2019-04-21] MEDS: FAMOTIDINE/PF 20 MG/2 ML VIAL IV SCH ×2 (09:41→20:50)
[2019-04-21 11:49] VITALS: BP_SYST 129; BP_SYST 29; BP_DIAS 57
[2019-04-21] MEDS: ACETAMINOPHEN-CODEINE 300/30MG TAB PO PRN (13:05)
[2019-04-21 15:38] VITALS: BP 154/68
--- NOTE | 2019-04-21 16:14 | NUR ---
DC PLAN VISITED WITH PATIENT. PATIENT AGREED FOR SNF FOR ABX SAID OKAY TO SEND REFERRAL AND FOR ME TO TALK TO GALILEO GUTHRIE REGARDING STATUS OF VEST. INFO SENT TO FACILITY. NOTIFIED PENDING TO VISIT. SPOKE TO GALILEO GUTHRIE SAID THAT THEY HAVE GONE THROUGH THE PROCESS TO GET AID FOR COPAY. IT WAS COVERED AT 100 PERCENT JUST NEEDED TO CALL ONCE SHE IS HOME TO GET IT FITTED. SAID ONCE PATIENT IS HOME JUST NEED TO CALL HIM SHE HAS HIS NUMBER HE WILL ALSO CALL HER AGAIN. Addendum: 04/21/19 at 1634 by JEANNETTE CISSE RN CM Amended: Links added.
[2019-04-21] MEDS ORDERED: SODIUM CHLORIDE 3% FOR INHALATION 4 ML/AMP VIAL.NEB IH SCH (18:00)
[2019-04-21 19:00] VITALS: BP 157/73
[2019-04-21] MEDS: METHYLPREDNISOLONE SOD SUCC 40MG/ML 1ML IVP SCH (20:50)
[2019-04-21] MEDS: INSULIN GLARGINE 100 UNITS/ML 10 ML VIAL SQ SCH (21:40)
[2019-04-21] MEDS ORDERED: IPRATROPIUM/ALBUTEROL SULFATE 3 ML SOLUTION IH ONE (22:46)
[2019-04-21 23:00] VITALS: BP 151/76
[2019-04-22] MEDS ORDERED: IPRATROPIUM/ALBUTEROL SULFATE 3 ML SOLUTION IH SCH
[2019-04-22] MEDS: METRONIDAZOLE 500MG/100ML BAG 100 ML IV SCH (01:18)
[2019-04-22 03:00] VITALS: BP 139/61
[2019-04-22 03:38] LABS: HEMATOCRIT 28.4 % (36-48); MEAN CORPUSCULAR HEMOGLOBIN 27.2 pg (27.0-33.0); MEAN CORPUSCULAR HGB CONC 32.9 g/dL (32.0-36.0); MEAN CORPUSCULAR VOLUME 82.8 fL (79-99); PLATELET COUNT (AUTO) 238 K/uL (130-400); RED BLOOD CELL COUNT(AUTO) 3.43 MIL/uL (4.00-5.50); RED CELL DISTRIBUTION WIDTH 16.8 % (11.0-15.5); WHITE BLOOD COUNT (AUTO) 8.8 K/uL (4.8-10.8)
[2019-04-22 03:55] LABS: CARBON DIOXIDE 29 mmol/L (21-32); CHLORIDE 103 mmol/L (101-111); CREATININE 1.2 mg/dL (0.5-1.5); GLOMERULAR FILTR. RATE CALC 46 mL/min (>60); GLUCOSE,RANDOM 230 mg/dL (70-105); PHOSPHORUS 3.7 mg/dL (2.5-4.9); POTASSIUM 4.2 mmol/L (3.5-5.1); SODIUM SERUM 140 mmol/L (136-145); UREA NITROGEN, BLOOD 22 mg/dL (7-18)
[2019-04-22 04:03] LABS: B-TYPE NATRIURETIC PEPTIDE 174 pg/mL (0-100)
[2019-04-22] MEDS: CEFEPIME HCL 2 GM VIAL IVP SCH ×2 (04:31→17:24)
[2019-04-22] MEDS: INSULIN LISPRO 100 UNIT/ML 3ML SQ SCH ×3 (07:24→17:29)
[2019-04-22] MEDS: INSULIN HUMULIN R 100 UNIT/ML 3ML SQ SCH ×4 (07:24→20:23)
[2019-04-22 07:40] VITALS: BP 157/73
--- NOTE | 2019-04-22 09:00 | NUR ---
cm note Dr Torre states to followup with snf, regarding cost of snf, due to pt is concerned regarding cost. spoke to Danica friedman at [facility] and states she is unable to verify the cost at this time, until wednesday when insurance is open. antolin Turner CM she will followup with MD/pt.
[2019-04-22] MEDS: FAMOTIDINE/PF 20 MG/2 ML VIAL IV SCH ×2 (09:30→20:12)
[2019-04-22] MEDS: METHYLPREDNISOLONE SOD SUCC 40MG/ML 1ML IVP SCH ×2 (09:30→20:12)
[2019-04-22] MEDS: BENZONATATE 100 MG CAPSULE PO SCH ×3 (09:30→20:13)
[2019-04-22] MEDS: ENOXAPARIN SODIUM 100 MG/1 ML SQ SCH (09:31)
--- NOTE | 2019-04-22 10:00 | NUR ---
COUGHING BOUT PATIENT UNDERGOING COUGHING BOUTS TO WHICH POINT SHE CANNOT CATCH HER BREATH, SOB ON NC AND IS REQUIRING TO BE CHANGED FROM NC TO CPAP. HOWEVER, PATIENT ON CPAP BUT REFUSES TO HAVE CPAP FLUSH AND STRAPS TIGHTENED TO KEEP MASK FLUSH WITH FACE. MADE AWARE OF PROPER WAY TO PLACE MASK AND BENEFITS. PATIENT REFUSES AT THIS TIME.
[2019-04-22 11:35] VITALS: BP 175/84
[2019-04-22] MEDS: SODIUM CHLORIDE 3% FOR INHALATION 4 ML/AMP VIAL.NEB IH SCH ×3 (12:01→23:27)
[2019-04-22] MEDS ORDERED: IPRATROPIUM 0.5 MG/2.5 ML INH IH SCH (12:30)
[2019-04-22 15:00] VITALS: BP 151/86
[2019-04-22] MEDS ORDERED: IPRATROPIUM 0.5 MG/2.5 ML INH IH PRN (16:30)
[2019-04-22 19:00] VITALS: BP 120/65
[2019-04-22] MEDS: IPRATROPIUM 0.5 MG/2.5 ML INH IH SCH ×2 (19:17→23:26)
[2019-04-22] MEDS: INSULIN GLARGINE 100 UNITS/ML 10 ML VIAL SQ SCH (20:22)
[2019-04-22] MEDS: METOCLOPRAMIDE 10 MG/2 ML VIAL IVP SCH (22:15)
[2019-04-22] MEDS ORDERED: ALPRAZOLAM 0.25 MG TABLET PO ONE (22:15)
--- NOTE | 2019-04-22 22:19 | NUR ---
home meds and anxiety patient requesting anxiety medication, patient takes alprazolam 0.25mg po bid prn agitation/anxiety at home. Patient also c/o indigestion/heartburn and requesting tums, informed patient that she was recently given pepcid iv and that she gets it twice a day but she would like tums. Paged Mariya szymanski urban and regional planner for hospitalist and informed her of her home medications not being reconciled and patients requests, phone orders received and entered. Mariya szymanski , stated she would be by later tonight to reconcile home meds
[2019-04-22 23:00] VITALS: BP 177/81
--- NOTE | 2019-04-22 23:28 | NUR ---
PT STATES NEB TX'S MAKE HER SICK AND REFUSES TO TAKE THEM.
[2019-04-22] MEDS ORDERED: ALPRAZOLAM 0.25 MG TABLET ONE (23:31)
[2019-04-23 03:00] VITALS: BP 164/88
[2019-04-23] MEDS: CEFEPIME HCL 2 GM VIAL IVP SCH ×2 (03:42→17:21)
[2019-04-23 04:10] LABS: BASOPHILS % (AUTO) 0.1 % (0.0-5.0); LYMPHOCYTES % (AUTO) 7.5 % (21.0-51.0); MEAN CORPUSCULAR HEMOGLOBIN 27.3 pg (27.0-33.0); MEAN CORPUSCULAR HGB CONC 32.5 g/dL (32.0-36.0); NEUTROPHILS % (AUTO) 85.4 % (40.0-77.0); PLATELET COUNT (AUTO) 232 K/uL (130-400); RED BLOOD CELL COUNT(AUTO) 3.81 MIL/uL (4.00-5.50); RED CELL DISTRIBUTION WIDTH 17.4 % (11.0-15.5); WHITE BLOOD COUNT (AUTO) 10.2 K/uL (4.8-10.8)
[2019-04-23 04:19] LABS: POTASSIUM 4.5 mmol/L (3.5-5.1)
[2019-04-23] MEDS: IPRATROPIUM 0.5 MG/2.5 ML INH IH SCH (04:25)
[2019-04-23] MEDS: SODIUM CHLORIDE 3% FOR INHALATION 4 ML/AMP VIAL.NEB IH SCH ×3 (04:25→18:00)
--- NOTE | 2019-04-23 05:50 | NUR ---
PATIENT VERY ANXIOUS, O2 SAT 93 TO 90 PERCENT. PATIENT ALSO COMPLAIN OF GENERALIZED PAIN, MEDICATED FOR PAIN PER ORDERS. CONTINUE TO MONITOR.
[2019-04-23] MEDS: ACETAMINOPHEN-CODEINE 300/30MG TAB PO PRN (05:52)
[2019-04-23] MEDS: INSULIN HUMULIN R 100 UNIT/ML 3ML SQ SCH ×4 (06:08→20:50)
--- NOTE | 2019-04-23 06:43 | NUR ---
RESIDUAL CHECKED OF PEG TUBE. 10 CC OBTAINED. TUBE FEEDING RATE UP TO 30 CC HOUR AT THIS TIME.
[2019-04-23 07:45] VITALS: BP 162/64
[2019-04-23] MEDS: METHYLPREDNISOLONE SOD SUCC 40MG/ML 1ML IVP SCH ×2 (08:22→20:40)
[2019-04-23] MEDS: FAMOTIDINE/PF 20 MG/2 ML VIAL IV SCH ×2 (08:23→20:39)
[2019-04-23] MEDS: BENZONATATE 100 MG CAPSULE PO SCH ×3 (08:31→20:39)
[2019-04-23] MEDS: ENOXAPARIN SODIUM 30 MG/0.3 ML SQ SCH (08:32)
[2019-04-23 11:30] VITALS: BP 154/75
[2019-04-23] MEDS ORDERED: CALCIUM CARBON 500MG CHEW TAB PO SCH (11:45)
[2019-04-23] MEDS ORDERED: BENZOCAINE/MENTH/CETYLPYRD CL 1 EACH LOZENGE MM PRN (11:45)
[2019-04-23] MEDS ORDERED: CALCIUM CARBON 500MG CHEW TAB PO PRN (12:00)
[2019-04-23] MEDS: LOSARTAN 100 MG TABLET PO SCH (12:31)
[2019-04-23] MEDS: TRAMADOL HCL 50 MG TABLET PO PRN ×2 (12:31→20:40)
[2019-04-23] MEDS: INSULIN LISPRO 100 UNIT/ML 3ML SQ SCH ×2 (12:32→17:22)
--- NOTE | 2019-04-23 14:27 | NUR ---
RESTING IN RECLINER AT BEDSIDE WITH EYES CLOSED, RESP.'S EVEN AND UNLABORED. O2 AT 3L/NC, HUMIDIFIED. CALL LIGHT WITHIN REACH. ROOM DOOR OPEN. Addendum: 04/23/19 at 1432 by ASHLEY VERGARA RN RN NICCI TOMAS NOT ADMINISTERED AT THIS TIME.
--- NOTE | 2019-04-23 14:45 | NUR ---
ASSISTED OUT OF RECLINER TO BEDSIDE COMMODE AND BACK TO RECLINER WITH O2 AT 3L/NC, HUMIDIFIED. AMBULATED W/O C/O. CALL LIGHT WITHIN REACH UPON RETURN TO RECLINER. ROOM DOOR OPEN.
[2019-04-23 15:00] VITALS: BP 164/81
[2019-04-23 20:05] VITALS: BP 149/86
[2019-04-23] MEDS: SIMVASTATIN 20 MG TABLET PO SCH (20:40)
[2019-04-23] MEDS: INSULIN GLARGINE 100 UNITS/ML 10 ML VIAL SQ SCH (20:44)
--- NOTE | 2019-04-23 22:11 | NUR ---
Duoneb restarted Patient beginning to aquire wheezes bilaterally. RT and nursing talked to patient and explained the purpose of the bronchodilators that the Doctor prescribed. Patient understood and said she will try it again. Debra VESSEL SCRAPPER HELPER called and ordered medication.
[2019-04-23] MEDS: METOCLOPRAMIDE 10 MG/2 ML VIAL IVP SCH (22:25)
[2019-04-23] MEDS ORDERED: PHARMACY COMMUNICATION MISC SCH (22:30)
[2019-04-23] MEDS ORDERED: IPRATROPIUM/ALBUTEROL SULFATE 3 ML SOLUTION IH SCH (23:00)
[2019-04-23] MEDS ORDERED: IPRATROPIUM/ALBUTEROL SULFATE 3 ML SOLUTION IH ONE (23:06)
[2019-04-24 04:16] VITALS: BP 176/84
[2019-04-24] MEDS: CEFEPIME HCL 2 GM VIAL IVP SCH ×2 (04:19→15:29)
[2019-04-24 04:37] LABS: BASOPHILS % (AUTO) 0.1 % (0.0-5.0); HEMATOCRIT 32.8 % (36-48); LYMPHOCYTES % (AUTO) 7.3 % (21.0-51.0); MEAN CORPUSCULAR HEMOGLOBIN 26.7 pg (27.0-33.0); MEAN CORPUSCULAR HGB CONC 31.8 g/dL (32.0-36.0); MEAN CORPUSCULAR VOLUME 83.8 fL (79-99); MONOCYTES % (AUTO) 4.7 % (3.0-13.0); NEUTROPHILS % (AUTO) 87.9 % (40.0-77.0); NUCLEATED RED BLOOD CELLS 0.1 % (0.0-0.19); PLATELET COUNT (AUTO) 245 K/uL (130-400); RED BLOOD CELL COUNT(AUTO) 3.92 MIL/uL (4.00-5.50); RED CELL DISTRIBUTION WIDTH 16.6 % (11.0-15.5); WHITE BLOOD COUNT (AUTO) 8.8 K/uL (4.8-10.8)
[2019-04-24 04:50] LABS: CARBON DIOXIDE 29 mmol/L (21-32); CHLORIDE 101 mmol/L (101-111); CREATININE 0.9 mg/dL (0.5-1.5); GLOMERULAR FILTR. RATE CALC 65 mL/min (>60); GLUCOSE,RANDOM 153 mg/dL (70-105); PHOSPHORUS 3.8 mg/dL (2.5-4.9); POTASSIUM 4.6 mmol/L (3.5-5.1); SODIUM SERUM 139 mmol/L (136-145); UREA NITROGEN, BLOOD 26 mg/dL (7-18)
[2019-04-24 04:55] LABS: ABG BASE EXCESS 2.7 mmol/L (-2.0-3.0); ABG HCO3 28.4 mmol/L (21.0-28.0); ABG OXYGEN SATURATION 97.1 % (95.0-99.0); ABG PCO2 47 mmHg (32-45)
[2019-04-24 05:08] LABS: B-TYPE NATRIURETIC PEPTIDE 351 pg/mL (0-100)
[2019-04-24] MEDS: SODIUM CHLORIDE 3% FOR INHALATION 4 ML/AMP VIAL.NEB IH SCH ×4 (06:00→23:09)
[2019-04-24 07:26] VITALS: BP 145/96
[2019-04-24] MEDS: INSULIN HUMULIN R 100 UNIT/ML 3ML SQ SCH ×4 (07:30→22:48)
[2019-04-24] MEDS: METHYLPREDNISOLONE SOD SUCC 40MG/ML 1ML IVP SCH (08:06)
[2019-04-24] MEDS: FAMOTIDINE/PF 20 MG/2 ML VIAL IV SCH ×2 (08:06→20:25)
[2019-04-24] MEDS: LOSARTAN 100 MG TABLET PO SCH (08:08)
[2019-04-24] MEDS: BENZONATATE 100 MG CAPSULE PO SCH ×3 (08:09→20:17)
[2019-04-24] MEDS: ENOXAPARIN SODIUM 30 MG/0.3 ML SQ SCH (08:10)
[2019-04-24] MEDS: INSULIN LISPRO 100 UNIT/ML 3ML SQ SCH ×3 (08:13→16:25)
[2019-04-24] MEDS ORDERED: LOSARTAN 100 MG TABLET PO SCH (09:00)
[2019-04-24] MEDS: ACETAMINOPHEN-CODEINE 300/30MG TAB PO PRN (09:35)
[2019-04-24] MEDS ORDERED: IPRATROPIUM/ALBUTEROL SULFATE 3 ML SOLUTION IH ONE ×4 (10:17→21:14)
[2019-04-24 11:12] VITALS: BP 141/94
[2019-04-24] MEDS ORDERED: ACETAMINOPHEN 325 MG TAB PO PRN (11:15)
[2019-04-24] MEDS: METHYLPREDNISOLONE SOD SUCC 125MG/2ML VIAL IVP SCH ×3 (11:32→22:52)
[2019-04-24] MEDS: TRAMADOL HCL 50 MG TABLET PO PRN ×2 (11:34→20:20)
--- NOTE | 2019-04-24 11:50 | NUR ---
DC PLAN VISITED WITH PATIENT. WENT OVER PLAN OF CARE AND DC PLAN. STILL REFUSES TO GO TO FACILITY. EXPLAINED THAT HOME HEALTH CAN NOT DO ABX Q6 HRS. SAID AIR ROUTE CONTROLLER CHANGED MEDS AND WANTS TO SEE IF THEY HELP SAID THAT BIPAP OVER NIGHT HELPED SHE IS COUGHING LESS. SPOKE TO FROM [facility] REGARDING TRILOGY PENDING FORM FOR MD TO SIGN. Addendum: 04/24/19 at 1152 by JEANNETTE CISSE RN CM Amended: Links added.
[2019-04-24] MEDS: LIDOCAINE 5% TOPICAL PATCH TP SCH (12:56)
--- NOTE | 2019-04-24 14:34 | NUR ---
DC PLAN SPOKE TO PATIENT. OKAY TO DC TO SNF. SENT UPDATES TO SNF AND INSURANCE. SPOKE TO RIVAS WITH [facility] SAID THAT IT WAS SUBMITTED PENDING ACCEPTANCE. SAID SANDY FOR [facility]. SPOKE TO DR. ALVARADO AGREED SIGNED FORM AND SENT TO [facility] PATIENT. Addendum: 04/24/19 at 1436 by JEANNETTE CISSE RN CM Amended: Links added.
--- NOTE | 2019-04-24 14:36 | NUR ---
GUILLAUME SPOKE TO PATIENT REGARDING ORDER FOR WALKER. SAID SHE HAS ONE AT HOME DOES NOT NEED A NEW ONE. Addendum: 04/24/19 at 1437 by JEANNETTE CISSE RN CM Amended: Links added.
[2019-04-24 15:00] VITALS: BP 156/71
--- NOTE | 2019-04-24 17:51 | NUR ---
Nutrition Intervention: Nutrition screen based on LOS x 5 days. Pt. on Heart healthy diet with fair p.o. intake, per pt. Food preferences obtained. Spoke with pt. regarding nutritional supplementation and pt. agreed to try. Labs reviewed(Alb 3.4, BG 256). Pt. on corticosteroid medication(solu medrol) which may be causing elevated BG levels. LBM: 04/23/19, per pt. SR-18, elastic. Pt. with 1+ edema LLE. BMI: 31.9, Obesity Grade 1. Recommendations: 1) Rec. 75gm CCD Heart Healthy diet. 2) Rec. Vanilla Glucerna QD with B'fast meal. 3) Continue to monitor pt's nutritional status. 4) Consult RD as nutrition concerns arise. Addendum: 04/24/19 at [address] Amended: Links added.
[2019-04-24 19:52] VITALS: BP 199/74
[2019-04-24] MEDS: SIMVASTATIN 20 MG TABLET PO SCH (20:23)
[2019-04-24] MEDS: INSULIN GLARGINE 100 UNITS/ML 10 ML VIAL SQ SCH (22:46)
[2019-04-24] MEDS: METOCLOPRAMIDE 10 MG/2 ML VIAL IVP SCH (22:52)
[2019-04-25] VITALS (8 sets, daily range): BP systolic 126–184; BP diastolic 65–91
[2019-04-25 04:39] LABS: HEMATOCRIT 30.1 % (36-48); LYMPHOCYTES % (AUTO) 4.5 % (21.0-51.0); MEAN CORPUSCULAR HEMOGLOBIN 27.3 pg (27.0-33.0); MEAN CORPUSCULAR HGB CONC 32.8 g/dL (32.0-36.0); MEAN CORPUSCULAR VOLUME 83.3 fL (79-99); MONOCYTES % (AUTO) 4.2 % (3.0-13.0); NEUTROPHILS % (AUTO) 91.3 % (40.0-77.0); NUCLEATED RED BLOOD CELLS 0.1 % (0.0-0.19); PLATELET COUNT (AUTO) 207 K/uL (130-400); RED BLOOD CELL COUNT(AUTO) 3.62 MIL/uL (4.00-5.50); RED CELL DISTRIBUTION WIDTH 16.5 % (11.0-15.5); WHITE BLOOD COUNT (AUTO) 6.9 K/uL (4.8-10.8)
[2019-04-25] MEDS: CEFEPIME HCL 2 GM VIAL IVP SCH ×2 (04:51→17:32)
[2019-04-25] MEDS: METHYLPREDNISOLONE SOD SUCC 125MG/2ML VIAL IVP SCH ×4 (04:51→22:21)
[2019-04-25 05:05] LABS: B-TYPE NATRIURETIC PEPTIDE 134 pg/mL (0-100)
--- NOTE | 2019-04-25 05:30 | NUR ---
MIDLEVEL PROVIDER NOTIFIED MAXX WHITING NOTIFIED PT BP 184/88 RECHECK 178/79 ORDERED HYDRAZALINE 10 MG IV PRN Q6 IF SBP GREATER THAN 160
[2019-04-25 05:35] LABS: CARBON DIOXIDE 27 mmol/L (21-32); CHLORIDE 100 mmol/L (101-111); GLOMERULAR FILTR. RATE CALC 57 mL/min (>60); GLUCOSE,RANDOM 203 mg/dL (70-105); PHOSPHORUS 3.5 mg/dL (2.5-4.9); POTASSIUM 4.5 mmol/L (3.5-5.1); SODIUM SERUM 137 mmol/L (136-145); UREA NITROGEN, BLOOD 29 mg/dL (7-18)
[2019-04-25] MEDS: INSULIN HUMULIN R 100 UNIT/ML 3ML SQ SCH ×4 (06:10→22:13)
[2019-04-25] MEDS: INSULIN LISPRO 100 UNIT/ML 3ML SQ SCH ×3 (06:14→17:35)
[2019-04-25] MEDS: HYDRALAZINE HCL 20 MG/ML VIAL IV PRN (06:47)
[2019-04-25] MEDS: SODIUM CHLORIDE 3% FOR INHALATION 4 ML/AMP VIAL.NEB IH SCH ×2 (06:51→18:00)
[2019-04-25] MEDS: ALPRAZOLAM 0.25 MG TABLET PO PRN ×2 (08:11→17:44)
[2019-04-25] MEDS ORDERED: IPRATROPIUM 0.5 MG/2.5 ML INH IH ONE (08:16)
[2019-04-25 08:21] LABS: ABG BASE EXCESS -8.7 mmol/L (-2.0-3.0); ABG OXYGEN SATURATION 94.6 % (95.0-99.0); ABG PCO2 61 mmHg (32-45)
[2019-04-25] MEDS: MORPHINE SULFATE 2 MG/ML 1ML SYG IV PRN (08:25)
[2019-04-25] MEDS ORDERED: METHYLPREDNISOLONE SOD SUCC 125MG/2ML VIAL IVP SCH (08:30)
[2019-04-25] MEDS: IPRATROPIUM 0.5 MG/2.5 ML INH IH SCH ×4 (08:30→21:08)
[2019-04-25] MEDS: LOSARTAN 100 MG TABLET PO SCH (08:44)
[2019-04-25] MEDS: FAMOTIDINE/PF 20 MG/2 ML VIAL IV SCH ×2 (08:44→20:35)
[2019-04-25] MEDS: BENZONATATE 100 MG CAPSULE PO SCH ×3 (08:44→20:35)
[2019-04-25] MEDS: ENOXAPARIN SODIUM 30 MG/0.3 ML SQ SCH (08:45)
[2019-04-25 09:34] LABS: ABG BASE EXCESS 0.9 mmol/L (-2.0-3.0); ABG HCO3 25.8 mmol/L (21.0-28.0); ABG OXYGEN SATURATION 97.2 % (95.0-99.0); ABG PCO2 42 mmHg (32-45)
[2019-04-25] MEDS: LIDOCAINE 5% TOPICAL PATCH TP SCH (12:25)
[2019-04-25] MEDS: DOXYCYCLINE 100MG+NS 250ML 250 ML IV SCH (14:32)
--- NOTE | 2019-04-25 15:50 | NUR ---
DC PLAN SPOKE TO DR. BURNHAM REGARDING PATIENT HAVING EPISODES OF SOB. SAID TO TRY TO DO [facility] REFERRAL AND HAVE BENCHMARK DO PEER TO PEER. SPOKE TO PATIENT REFUSED TO HAVE REFERRAL TO [facility]. RIVAS WITH [facility] CALLED SAID PATIENT DOES NOT HAVE ANY MORE SNF DAYS. WILL NOT BE ABLE TO ACCEPT PATIENT. SPOKE TO MARILEE VICE PRESIDENT OF COMPLIANCE SAID SHE SPOKE TO PATIENT REGARDING HOSPICE, DNR AND DNI SAID PATIENT NOT INTERESTED. WANTS FULL CODE AND NO HOSPICE. Addendum: 04/25/19 at 1553 by JEANNETTE CISSE RN CM Amended: Links added.
[2019-04-25] MEDS: SIMVASTATIN 20 MG TABLET PO SCH (20:35)
[2019-04-25] MEDS: INSULIN GLARGINE 100 UNITS/ML 10 ML VIAL SQ SCH (22:13)
[2019-04-25] MEDS: METOCLOPRAMIDE 10 MG/2 ML VIAL IVP SCH (22:15)
[2019-04-26] VITALS (7 sets, daily range): BP systolic 144–179; BP diastolic 69–86
[2019-04-26] MEDS: IPRATROPIUM 0.5 MG/2.5 ML INH IH SCH ×2 (00:28→05:11)
[2019-04-26] MEDS: DOXYCYCLINE 100MG+NS 250ML 250 ML IV SCH ×3 (01:18→20:36)
[2019-04-26] MEDS: CEFEPIME HCL 2 GM VIAL IVP SCH ×3 (03:35→20:35)
[2019-04-26] MEDS: ALPRAZOLAM 0.25 MG TABLET PO PRN ×4 (03:35→22:53)
[2019-04-26] MEDS: MORPHINE SULFATE 2 MG/ML 1ML SYG IV PRN ×3 (03:44→09:21)
[2019-04-26] MEDS: METHYLPREDNISOLONE SOD SUCC 125MG/2ML VIAL IVP SCH ×2 (04:16→17:26)
[2019-04-26] MEDS: HYDRALAZINE HCL 20 MG/ML VIAL IV PRN (05:58)
[2019-04-26] MEDS: INSULIN HUMULIN R 100 UNIT/ML 3ML SQ SCH ×4 (05:59→22:20)
[2019-04-26] MEDS: INSULIN LISPRO 100 UNIT/ML 3ML SQ SCH ×3 (06:04→17:27)
[2019-04-26] MEDS: LOSARTAN 100 MG TABLET PO SCH (09:08)
[2019-04-26] MEDS: FAMOTIDINE 20MG TAB 20 MG TAB PO SCH ×2 (09:08→20:35)
[2019-04-26] MEDS: BENZONATATE 100 MG CAPSULE PO SCH ×3 (09:09→20:35)
[2019-04-26] MEDS: LIDOCAINE 5% TOPICAL PATCH TP SCH (09:09)
[2019-04-26] MEDS: ENOXAPARIN SODIUM 30 MG/0.3 ML SQ SCH (09:09)
[2019-04-26] MEDS ORDERED: METHYLPREDNISOLONE SOD SUCC 125MG/2ML VIAL IVP SCH ×2 (10:15→13:00)
[2019-04-26] MEDS: SODIUM CHLORIDE 3% FOR INHALATION 4 ML/AMP VIAL.NEB IH SCH ×3 (11:33→18:00)
--- NOTE | 2019-04-26 12:48 | NUR ---
HOSPICE SW met with pt and educated on hospice services. SW answered all questions asked. Pt signed consent for referral to [facility]. Pt states she is not ready for dc, "maybe at the end of the week". Sw notified Evy of referral and she will come see pt and make arrangements
--- NOTE | 2019-04-26 13:08 | NUR ---
Evy izaguirre Prescott met with pt and educated on services. Evy also reached out to pt's daughter Brandy. THey will meet this afternoon at 4:15. Daughter informed Evy that pt is not wanting to sign DNR. Evy to discuss with pt and daughter at meeting. Deloris to follow and assist as needed
[2019-04-26] MEDS: MORPHINE SULFATE 2 MG/ML 1ML SYG IVP PRN ×2 (17:27→22:18)
[2019-04-26] MEDS: TRAMADOL HCL 50 MG TABLET PO PRN (20:00)
[2019-04-26] MEDS: SIMVASTATIN 20 MG TABLET PO SCH (20:36)
[2019-04-26] MEDS: METOCLOPRAMIDE 10 MG/2 ML VIAL IVP SCH (22:10)
[2019-04-26] MEDS: INSULIN GLARGINE 100 UNITS/ML 10 ML VIAL SQ SCH (22:20)
[2019-04-26] MEDS ORDERED: ALPRAZOLAM 0.25 MG TABLET PO ONE (23:00)
[2019-04-27] VITALS (7 sets, daily range): BP systolic 145–199; BP diastolic 75–95
[2019-04-27] MEDS: METHYLPREDNISOLONE SOD SUCC 125MG/2ML VIAL IVP SCH ×6 (00:16→21:20)
[2019-04-27] MEDS: ALPRAZOLAM 0.25 MG TABLET PO PRN ×3 (03:54→21:26)
[2019-04-27] MEDS: MORPHINE SULFATE 2 MG/ML 1ML SYG IVP PRN ×2 (03:55→11:17)
[2019-04-27] MEDS: INSULIN HUMULIN R 100 UNIT/ML 3ML SQ SCH ×4 (06:06→21:40)
[2019-04-27] MEDS: INSULIN LISPRO 100 UNIT/ML 3ML SQ SCH ×3 (06:15→16:00)
[2019-04-27] MEDS: SODIUM CHLORIDE 3% FOR INHALATION 4 ML/AMP VIAL.NEB IH SCH (07:05)
[2019-04-27] MEDS: ENOXAPARIN SODIUM 30 MG/0.3 ML SQ SCH (07:49)
[2019-04-27] MEDS: HYDRALAZINE HCL 20 MG/ML VIAL IV PRN (07:49)
[2019-04-27] MEDS: FAMOTIDINE 20MG TAB 20 MG TAB PO SCH ×2 (07:49→21:20)
[2019-04-27] MEDS: BENZONATATE 100 MG CAPSULE PO SCH ×3 (07:50→21:20)
[2019-04-27] MEDS: CEFEPIME HCL 2 GM VIAL IVP SCH (07:51)
[2019-04-27] MEDS: DOXYCYCLINE 100MG+NS 250ML 250 ML IV SCH (07:51)
[2019-04-27] MEDS: LOSARTAN 100 MG TABLET PO SCH (07:51)
--- NOTE | 2019-04-27 07:55 | NUR ---
HTN @ 0755 BP 199/95. IV HYDRALAZINE PRN & MORNING BP MEDS GIVEN. @ 0840 BP RECHECK 160/85. NOTIFIED.
--- NOTE | 2019-04-27 08:00 | NUR ---
AM ASSESSMENT PT SITTING IN RECLINER. UPSET/ANXIOUS. C/O SOB. PLACED ON BIPAP. DENIES CHEST PAIN OR DISCOMFORT. DENIES N/V AND/OR DIARRHEA. INSTRUCTED TO CALL FOR ASSISTANCE. CALL BLOSSOM W/IN REACH.
[2019-04-27] MEDS: LIDOCAINE 5% TOPICAL PATCH TP SCH (09:20)
--- NOTE | 2019-04-27 10:58 | NUR ---
MD VISIT DR BURNHAM IN TO SEE PT, TIME SPENT 30 MIN. PLAN OF CARE, HOSPICE, MEDICATIONS, & RESUSCITATION STATUS DISCUSSED W/PT & DAUGHTER. PT AGREES TO HOSPICE & HAS CHANGED RESUSCITATION STATUS TO DNR. ORDERS ENTERED BY .
[2019-04-27] MEDS: IPRATROPIUM 0.5 MG/2.5 ML INH IH SCH ×2 (13:11→18:46)
--- NOTE | 2019-04-27 17:03 | NUR ---
DC PLAN VISITED WITH PATIENT. PATIENT GAVE SARAI FOR [facility]. ASKED ALL LOCAL SNF AT [facility] ONLY ONE WITH A MEDICAID BED AT THIS TIME. CALLED RIVAS SEVERAL TIMES FOR INFO ON HOW FAR MEDICAID HAD BEEN PUSHED AND IF WE CAN GET THE INFORMATION FOR [facility] NO CALL BACK OF YET. PENDING TO SEE IF PATIENT CAN GO HOSPICE WITH MEDICAID PENDING TO [facility]. Addendum: 04/27/19 at 1706 by JEANNETTE CISSE RN CM Amended: Links added.
[2019-04-27] MEDS: DOXYCYCLINE HYCLATE 100 MG TABLET PO SCH (21:20)
[2019-04-27] MEDS: INSULIN GLARGINE 100 UNITS/ML 10 ML VIAL SQ SCH (21:42)
[2019-04-27] MEDS: METOCLOPRAMIDE 10 MG/2 ML VIAL IVP SCH (22:15)
[2019-04-28 03:00] VITALS: BP 155/100
[2019-04-28] MEDS: ALPRAZOLAM 0.25 MG TABLET PO PRN ×4 (03:54→22:28)
[2019-04-28] MEDS: HYDRALAZINE HCL 20 MG/ML VIAL IV PRN (04:55)
[2019-04-28] MEDS: METHYLPREDNISOLONE SOD SUCC 125MG/2ML VIAL IVP SCH ×3 (04:56→21:35)
[2019-04-28] MEDS: INSULIN HUMULIN R 100 UNIT/ML 3ML SQ SCH ×4 (06:18→21:00)
[2019-04-28] MEDS: MORPHINE SULFATE 2 MG/ML 1ML SYG IVP PRN ×2 (06:56→17:34)
[2019-04-28] MEDS: INSULIN LISPRO 100 UNIT/ML 3ML SQ SCH ×3 (07:11→17:37)
[2019-04-28] MEDS: IPRATROPIUM 0.5 MG/2.5 ML INH IH SCH ×4 (07:16→18:33)
[2019-04-28 07:50] VITALS: BP 186/86
[2019-04-28] MEDS: ENOXAPARIN SODIUM 30 MG/0.3 ML SQ SCH (10:14)
[2019-04-28] MEDS: FAMOTIDINE 20MG TAB 20 MG TAB PO SCH ×2 (10:14→21:36)
[2019-04-28] MEDS: LIDOCAINE 5% TOPICAL PATCH TP SCH (10:14)
[2019-04-28] MEDS: LOSARTAN 100 MG TABLET PO SCH (10:14)
[2019-04-28] MEDS: DOXYCYCLINE HYCLATE 100 MG TABLET PO SCH ×2 (10:14→21:36)
[2019-04-28] MEDS: BENZONATATE 100 MG CAPSULE PO SCH ×3 (10:14→21:36)
[2019-04-28 11:36] VITALS: BP 147/92
--- NOTE | 2019-04-28 11:42 | NUR ---
CALL TO [facility] CALL NANETTE RAMIREZ- CANNOT HELP PATIENT - [facility] DID NOT PRODUCE BANK STATEMENTS NECESSARY TO TO THE PAPAERWORK /QUALIFICATIONS, SO AT THIS POINT THEY ARE DENYING.
--- NOTE | 2019-04-28 13:10 | NUR ---
f/u Sw notified Evy at [facility] that [place] denied, only option for pt is home. [facility] to follow up
--- NOTE | 2019-04-28 13:40 | NUR ---
LONG DISCUSSION RE HOSPICE LONG DISCUSSION AT BEDSIDE W DAUGHTER AND PT NOT ACCEPTED AT [facility]. PT STILL PENDING MANY PAPERWORKS NEEDED FOR THE SENIOR CARE MEDICAID . EXPLAINED HOW SENIOR CARE MEDICAID WORKS. NOTED THAT PT STILL HAS PROPERTY- LAND, PAID IN FULL, AND A MOBILE HOME WITH A MORTGAGE, EXPLAINED HOSPICE HOUSE CRITERIA, PT/DAUGHTER WANT PT TO 'END UP IN SOMETHING LIKE THAT' CALL FROM MIRIAM TO DAUGHTER, BENOIT SPOKE TO MIRIAM, ADVISED HER THAT [facility] HAD DENIED, PT/FAMILY WILL GO HOME, WITH OPTION TO TRANSITION TO HOSPICE HOUSE SHE DECLINES. PT STATED THEY HAD A LOT OF EQUIPMENT THAT THEY NEEDED TO MAKE ARRANGMENT FOR- ADVISED THEM TO CALL BACK HOSPICE AND TELL THEM THEY WERE GOING HOME AND NEEDED HELP PLANNING. VERBALIZED UNDERSTANDING Addendum: 04/28/19 at 1352 by WEI PORTER RN CM Amended: Links added.
--- NOTE | 2019-04-28 16:00 | NUR ---
1526 had pt sign IM letter.Faxed to [phone] and placed in chart under consent tab.
[2019-04-28 16:32] VITALS: BP 159/71
--- NOTE | 2019-04-28 17:14 | NUR ---
DCP: HOME WITH [facility] IN THE AM SW present when Evy met with family and completed OOHDNR. Family and pt very anxious about dc this late in day. Daughter overwhelmed. Staffed case with CMD and CM. Pt to dc in am so hospice nurse can admit and do teaching to family.
[2019-04-28 20:39] VITALS: BP 144/89
[2019-04-28] MEDS: INSULIN GLARGINE 100 UNITS/ML 10 ML VIAL SQ SCH (21:49)
[2019-04-28] MEDS: METOCLOPRAMIDE 10 MG/2 ML VIAL IVP SCH (22:30)
[2019-04-29 00:55] VITALS: BP 170/79
[2019-04-29 04:07] VITALS: BP 160/84
[2019-04-29] MEDS: ALPRAZOLAM 0.25 MG TABLET PO PRN (04:26)
[2019-04-29] MEDS: IPRATROPIUM 0.5 MG/2.5 ML INH IH SCH ×3 (06:14→11:08)
[2019-04-29] MEDS: INSULIN LISPRO 100 UNIT/ML 3ML SQ SCH (06:16)
[2019-04-29] MEDS: METHYLPREDNISOLONE SOD SUCC 125MG/2ML VIAL IVP SCH (06:17)
[2019-04-29] MEDS: INSULIN HUMULIN R 100 UNIT/ML 3ML SQ SCH (06:17)
[2019-04-29 07:30] VITALS: BP 170/80
[2019-04-29] MEDS: FAMOTIDINE 20MG TAB 20 MG TAB PO SCH (07:33)
[2019-04-29] MEDS: ENOXAPARIN SODIUM 30 MG/0.3 ML SQ SCH (07:33)
[2019-04-29] MEDS: DOXYCYCLINE HYCLATE 100 MG TABLET PO SCH (07:33)
[2019-04-29] MEDS: LOSARTAN 100 MG TABLET PO SCH (07:33)
[2019-04-29] MEDS: LIDOCAINE 5% TOPICAL PATCH TP SCH (07:33)
[2019-04-29] MEDS: BENZONATATE 100 MG CAPSULE PO SCH (07:33)
--- NOTE | 2019-04-29 08:00 | NUR ---
ASSESSMENT PT IS AAOX3 DENIES CP DENIES SOB DENIES NV. BREATHING PATTERN IS EVEN AND UNLABORED WHILE ON O2 4LPM NC. RESTING, SITTING UPRIGHT IN CHAIR. NO COMPLAINTS, CALL LIGHT WITHIN REACH.
--- NOTE | 2019-04-29 10:22 | NUR ---
REPORT GIVEN TO HOSPICE NURSE BRITNEY DANIELLE RN
--- NOTE | 2019-04-29 11:45 | NUR ---
DISCHARGE TO HOME WITH HOSPICE, [facility] PICKED UP PATIENT AND TRANSPORTED HOME. FAMILY MEMBER AT BEDSIDE ASSISTED WITH BELONGINGS. DC PACKET TAKEN WITH [facility] TO HOME FOR HOSPICE NURSE
--- NOTE | 2019-04-29 11:50 | NUR ---
Nutrition Follow-up: Pt. on 75gm CCD Heart Healthy diet, Vanilla Glucerna QD with good p.o. intake, as per pt. Pt. requesting Snacks between meals. As per Insurance Counselor notes, pt. to be D/C home with [facility]. Labs reviewed. LBM: 04/28/19. Recommendations: 1) Rec. Snacks TID. 2) Continue to monitor pt's nutritional status. 3) Consult RD as nutrition concerns arise. Addendum: 04/29/19 at [address] Amended: Links added.
== END 2019-04-29 11:10 | disposition hospice, home (50) | DRG 193 ==
LOC: EDH 12:33 → OBSVTOIN 14:22 → EDHIP 14:22 → 2DH 16:52
PROVIDERS: ADMIT Hospitalist; ATTEND Hospitalist
PROC: 5A09357 Assistance with Respiratory Ventilation, Less than 24 Consecutive Hours, Continuous Positive Airway Pressure (ICD-10-PCS; principal; 2019-04-25)
PROC: 5A09357 Assistance with Respiratory Ventilation, Less than 24 Consecutive Hours, Continuous Positive Airway Pressure (ICD-10-PCS; 2019-04-26)
PROC: 5A09357 Assistance with Respiratory Ventilation, Less than 24 Consecutive Hours, Continuous Positive Airway Pressure (ICD-10-PCS; 2019-04-27)
PROC: 5A09357 Assistance with Respiratory Ventilation, Less than 24 Consecutive Hours, Continuous Positive Airway Pressure (ICD-10-PCS; 2019-04-28)
PROC: 5A09357 Assistance with Respiratory Ventilation, Less than 24 Consecutive Hours, Continuous Positive Airway Pressure (ICD-10-PCS; 2019-04-29)
DX: J18.9 Pneumonia, unspecified organism (principal); J96.21 Acute and chronic respiratory failure with hypoxia; J96.22 Acute and chronic respiratory failure with hypercapnia; E24.2 Drug-induced Cushing's syndrome; J44.1 Chronic obstructive pulmonary disease with (acute) exacerbation; J44.0 Chronic obstructive pulmonary disease with (acute) lower respiratory infection; J43.9 Emphysema, unspecified; Z99.81 Dependence on supplemental oxygen; N18.3 Chronic kidney disease, stage 3 (moderate); E11.22 Type 2 diabetes mellitus with diabetic chronic kidney disease; I12.9 Hypertensive chronic kidney disease with stage 1 through stage 4 chronic kidney disease, or unspecified chronic kidney disease; E78.5 Hyperlipidemia, unspecified; E66.01 Morbid (severe) obesity due to excess calories; E78.00 Pure hypercholesterolemia, unspecified; N95.1 Menopausal and female climacteric states; T38.0X5A Adverse effect of glucocorticoids and synthetic analogues, initial encounter; F41.9 Anxiety disorder, unspecified; F32.9 Major depressive disorder, single episode, unspecified; J30.2 Other seasonal allergic rhinitis; Z88.0 Allergy status to penicillin; Z88.2 Allergy status to sulfonamides; Z88.8 Allergy status to other drugs, medicaments and biological substances; Z91.030 Bee allergy status; Z91.041 Radiographic dye allergy status; Z82.5 Family history of asthma and other chronic lower respiratory diseases; Z90.49 Acquired absence of other specified parts of digestive tract; Z87.891 Personal history of nicotine dependence; Z68.32 Body mass index [BMI] 32.0-32.9, adult; Z79.52 Long term (current) use of systemic steroids; Z82.0 Family history of epilepsy and other diseases of the nervous system; Z82.49 Family history of ischemic heart disease and other diseases of the circulatory system; Z83.3 Family history of diabetes mellitus; Z86.74 Personal history of sudden cardiac arrest; Y92.89 Other specified places as the place of occurrence of the external cause
CPT/HCPCS: 36415; 36600; 71045; 78582; 80048; 80053; 81003; 82550; 82803; 82948; 83036; 83605; 83735; 83880; 84100; 84145; 84484; 85025; 85027; 85378; 85610; 85730; 87040; 87071; 87205; 87804; 93005; 94640; 94660; 94664; 94667; 94668; 97039; 99291; A9540; A9558; G0378; J0360; J0692; J1650; J1815; J1885; J1940; J2185; J2405; J2765; J2920; J2930; J3475; J3490; J7040; J7608

== ENCOUNTER 2021-05-22 22:22 | Inpatient (IN) | payer MEDICARE, OTHER ==
[~2021-05-22] VITALS: Ht 154.9 cm; Wt 85.7 kg
[~2021-05-22 22:22] MED LIST changes: -ACET-2247 PO; +ALPR0.255 PO; +ASPI-1197 PO; -ASPI-555 PO; -CETI10TA57 PO; -CITA-106 PO; +CITA-107 PO; +CYCL5TAB PO; -FERR-82 PO; -LOSA100T2 PO; +LOSA100T58 PO; -METO25 PO; +MONT10TA21 PO; -NITR0.4T SL; -OMEP-50 PO; -ONDA4TAB10 PO; +ONDA4TAB4 PO; +TRAM50TA4 PO
[2021-05-22 22:28] LABS: ABG BASE EXCESS 4.5 mmol/L (-2.0-3.0); ABG HCO3 31.2 mmol/L (21.0-28.0); ABG OXYGEN SATURATION 89.2 % (95.0-99.0); ABG PCO2 55 mmHg (32-45)
[2021-05-22] MEDS ORDERED: SOLU-MEDROL 125MG VIAL IVP ONE (22:30)
[2021-05-22] MEDS ORDERED: SOLU-MEDROL 125MG VIAL ONE (22:32)
[2021-05-22] MEDS ORDERED: MORPHINE 2 MG SYG ONE (22:32)
[2021-05-22 22:49] LABS: BASOPHILS % (AUTO) 0.3 % (0.0-5.0); EOSINOPHILS % (AUTO) 1.6 % (0.0-8.0); HEMATOCRIT 36.7 % (36-48); LYMPHOCYTES % (AUTO) 11.3 % (21.0-51.0); MEAN CORPUSCULAR HEMOGLOBIN 28.9 pg (27.0-33.0); MEAN CORPUSCULAR HGB CONC 31.3 g/dL (32.0-36.0); MEAN CORPUSCULAR VOLUME 92.2 fL (79-99); MONOCYTES % (AUTO) 7.5 % (3.0-13.0); NEUTROPHILS % (AUTO) 78.6 % (40.0-77.0); PLATELET COUNT (AUTO) 270 K/uL (130-400); RED BLOOD CELL COUNT(AUTO) 3.98 MIL/uL (4.00-5.50); RED CELL DISTRIBUTION WIDTH 13.3 % (11.0-15.5); WHITE BLOOD COUNT (AUTO) 20.9 K/uL (4.8-10.8)
[2021-05-22] MEDS ORDERED: ALBUTEROL 0.083% 2.5 MG/3 ML INH IH ONE ×3 (23:00)
[2021-05-22] MEDS ORDERED: LORAZEPAM 2 MG/ML 1 ML VIAL IVP ONE (23:00)
[2021-05-22] MEDS ORDERED: MORPHINE 2 MG SYG IVP ONE (23:00)
[2021-05-22 23:21] LABS: B-TYPE NATRIURETIC PEPTIDE 48 pg/mL (0-100)
[2021-05-22 23:42] LABS: ALBUMIN 3.4 g/dL (3.5-5.0); BILIRUBIN,TOTAL 0.4 mg/dL (0.2-1.0); CREATININE 1.2 mg/dL (0.5-1.5); TOTAL PROTEIN, SERUM 6.8 g/dL (6.0-8.3)
[2021-05-22] MEDS ORDERED: AZITHROMYCIN 500MG+NS 250ML 250 ML IV ONE (23:45)
[2021-05-22 23:59] LABS: APPEARANCE,URINE Cloudy (CLEAR); BILIRUBIN,URINE Small (NEGATIVE); COLOR,URINE Dark Yellow (YELLOW); GLUCOSE, URINE (UA) TRACE mg/dL (NEGATIVE); KETONES,URINE Trace mg/dL (NEGATIVE); LEUKOCYTE ESTERASE ,URINE Negative (NEGATIVE); NITRATE,URINE Negative (NEGATIVE); OCCULT BLOOD,URINE Negative (NEGATIVE); PROTEIN,URINE POS 2+ mg/dL (NEGATIVE)
[2021-05-23] MEDS ORDERED: CEFTRIAXONE 1G VIAL IVP ONE
[2021-05-23] MEDS ORDERED: ACETAMINOPHEN 500 MG TABLET PO ONE
[2021-05-23] MEDS ORDERED: AZITHROMYCIN 500MG VIAL IVPB ONE
[2021-05-23 00:13] LABS: BACTERIA,URINE Rare /HPF (None Seen); WBC,URINE 0-1 /HPF (0-1)
[2021-05-23 00:14] LABS: MUCUS,URINE Moderate LPF (None Seen); SQUAMOUS EPITHELIAL CELL,UR Few /HPF (0-2)
[2021-05-23 00:16] LABS: HYALINE CASTS, URINE 0-1 /LPF (0-1 /LPF)
[2021-05-23] MEDS ORDERED: LACTULOSE 20 GM/30 ML UDCUP PO PRN (01:30)
[2021-05-23] MEDS ORDERED: SOLU-MEDROL 125MG VIAL IV SCH (01:30)
[2021-05-23] MEDS ORDERED: 0.9%NACL 1000ML 1,000 ML IV ONE (01:30)
[2021-05-23] MEDS ORDERED: NITROGLYCERIN 0.4 MG SL TAB SL PRN (01:30)
[2021-05-23] MEDS ORDERED: MORPHINE 4 MG SYG IV PRN (01:30)
[2021-05-23] MEDS ORDERED: ONDANSETRON 4MG INJ IV PRN (01:30)
[2021-05-23] MEDS: 0.9%NACL 1000ML 1,000 ML IV SCH ×2 (02:28→19:29)
[2021-05-23] MEDS: DOXYCYCLINE 100MG+NS 250ML 250 ML IV SCH ×2 (02:28→15:16)
[2021-05-23] MEDS ORDERED: ACETAMINOPHEN 650 MG SUPPOSITORY RC PRN (02:30)
[2021-05-23] MEDS ORDERED: FUROSEMIDE 40MG VIAL IV ONE (04:30)
[2021-05-23 05:19] LABS: ABG BASE EXCESS 2.6 mmol/L (-2.0-3.0); ABG HCO3 30.3 mmol/L (21.0-28.0); ABG PCO2 59 mmHg (32-45)
[2021-05-23 05:43] LABS: ABG HCO3 29.7 mmol/L (21.0-28.0); ABG OXYGEN SATURATION 98.7 % (95.0-99.0); ABG PCO2 59 mmHg (32-45)
[2021-05-23] MEDS: IPRATROPIUM 0.5 MG/2.5 ML INH IH SCH ×4 (07:15→23:45)
[2021-05-23 07:36] LABS: BASOPHILS % (AUTO) 0.2 % (0.0-5.0); EOSINOPHILS % (AUTO) 0.5 % (0.0-8.0); HEMATOCRIT 32.8 % (36-48); LYMPHOCYTES % (AUTO) 2.4 % (21.0-51.0); MEAN CORPUSCULAR HEMOGLOBIN 28.8 pg (27.0-33.0); MEAN CORPUSCULAR HGB CONC 30.5 g/dL (32.0-36.0); MEAN CORPUSCULAR VOLUME 94.5 fL (79-99); MONOCYTES % (AUTO) 2.8 % (3.0-13.0); NEUTROPHILS % (AUTO) 93.4 % (40.0-77.0); PLATELET COUNT (AUTO) 190 K/uL (130-400); RED BLOOD CELL COUNT(AUTO) 3.47 MIL/uL (4.00-5.50); RED CELL DISTRIBUTION WIDTH 13.2 % (11.0-15.5); WHITE BLOOD COUNT (AUTO) 19.8 K/uL (4.8-10.8)
[2021-05-23 07:54] LABS: CREATININE 1.4 mg/dL (0.5-1.5); MAGNESIUM 1.5 mg/dL (1.80-2.40); POTASSIUM 5.3 mmol/L (3.5-5.1)
[2021-05-23] MEDS: ENOXAPARIN SODIUM 40 MG/0.4 ML SYRINGE SQ SCH (09:30)
[2021-05-23] MEDS: SOLU-MEDROL 125MG VIAL IV SCH ×2 (09:30→18:38)
[2021-05-23] MEDS: FAMOTIDINE 20MG VIAL IV SCH ×2 (09:30→21:54)
[2021-05-23] MEDS: ALBUTEROL 0.042% 1.25MG/3ML IH SCH ×3 (11:04→23:45)
[2021-05-23] MEDS: INSULIN HUMULIN R 100 UNIT/ML 3ML SQ SCH ×2 (12:17→18:38)
[2021-05-23] MEDS ORDERED: ROCURONIUM BROMIDE 10MG/1ML 5ML VL IV ONE (14:37)
[2021-05-23] MEDS ORDERED: ETOMIDATE 20MG VIAL IVP ONE (14:37)
[2021-05-23] MEDS: DiphenhydrAMINE HCL 50 MG/ML VIAL IV PRN (16:09)
[2021-05-23] MEDS: ACETAMINOPHEN 325 MG TAB PO PRN (16:09)
[2021-05-23] MEDS ORDERED: MAGNESIUM 2GM PREMIX 50ML 50 ML IV PRN (22:00)
[2021-05-24] VITALS (31 sets, daily range): BP systolic 118–225; BP diastolic 40–110
[2021-05-24] MEDS: DiphenhydrAMINE HCL 50 MG/ML VIAL IV PRN ×2 (00:05→21:07)
[2021-05-24] MEDS: INSULIN HUMULIN R 100 UNIT/ML 3ML SQ SCH ×4 (00:21→17:01)
[2021-05-24] MEDS: DOXYCYCLINE 100MG+NS 250ML 250 ML IV SCH (02:17)
[2021-05-24] MEDS: SOLU-MEDROL 125MG VIAL IV SCH ×3 (02:17→17:01)
[2021-05-24 04:27] LABS: MAGNESIUM 2.1 mg/dL (1.80-2.40); THYROID STIMULATING HORMONE 0.48 uIU/mL (0.36-3.74)
[2021-05-24 07:28] LABS: BASOPHILS % (AUTO) 0.2 % (0.0-5.0); HEMATOCRIT 29.3 % (36-48); LYMPHOCYTES % (AUTO) 1.9 % (21.0-51.0); MEAN CORPUSCULAR HEMOGLOBIN 28.8 pg (27.0-33.0); MEAN CORPUSCULAR HGB CONC 31.4 g/dL (32.0-36.0); MEAN CORPUSCULAR VOLUME 91.8 fL (79-99); NEUTROPHILS % (AUTO) 94.2 % (40.0-77.0); PLATELET COUNT (AUTO) 188 K/uL (130-400); RED BLOOD CELL COUNT(AUTO) 3.19 MIL/uL (4.00-5.50); RED CELL DISTRIBUTION WIDTH 13.2 % (11.0-15.5); WHITE BLOOD COUNT (AUTO) 18.2 K/uL (4.8-10.8)
[2021-05-24 07:50] LABS: POTASSIUM 4.2 mmol/L (3.5-5.1)
[2021-05-24] MEDS ORDERED: CEFTRIAXONE 1G VIAL IVP SCH (08:30)
[2021-05-24] MEDS: IPRATROPIUM 0.5 MG/2.5 ML INH IH SCH ×4 (08:45→23:52)
[2021-05-24] MEDS: ALBUTEROL 0.042% 1.25MG/3ML IH SCH ×4 (08:45→23:52)
[2021-05-24] MEDS: FAMOTIDINE 20MG VIAL IV SCH ×2 (08:45→20:00)
[2021-05-24] MEDS: ENOXAPARIN SODIUM 40 MG/0.4 ML SYRINGE SQ SCH (08:46)
[2021-05-24] MEDS: GUAIFENESIN-DM 200/20 MG 10 ML PO PRN (09:00)
[2021-05-24] MEDS ORDERED: 0.9% NACL 250ML IVPB SCH (09:30)
[2021-05-24] MEDS ORDERED: AZITHROMYCIN 500MG VIAL IVPB SCH (09:30)
[2021-05-24] MEDS: HYDRALAZINE 20MG/ML VIAL IV PRN ×2 (09:45→22:04)
[2021-05-24] MEDS: DEXMEDETOMIDINE 400MCG/NS100ML IV SCH ×2 (10:06→20:00)
[2021-05-24] MEDS: LEVOFLOXACIN 250 MG/D5W 50ML 50 ML IVPB SCH (10:06)
[2021-05-24] MEDS: AZITHROMYCIN 500MG+NS 250ML 250 ML IV SCH (11:59)
[2021-05-24] MEDS: BUDESONIDE 0.5 MG/2 ML INH IH SCH (18:37)
[2021-05-24] MEDS: MORPHINE 2 MG SYG IV PRN (22:47)
[2021-05-24 23:21] LABS: ABG BASE EXCESS -5.1 mmol/L (-2.0-3.0); ABG HCO3 21.4 mmol/L (21.0-28.0); ABG OXYGEN SATURATION 99.4 % (95.0-99.0); ABG PCO2 45 mmHg (32-45)
[2021-05-25] VITALS (45 sets, daily range): BP systolic 104–193; BP diastolic 54–94
[2021-05-25] MEDS: DEXMEDETOMIDINE 400MCG/NS100ML IV SCH ×8 (00:21→23:43)
[2021-05-25 00:43] LABS: BASOPHILS % (AUTO) 0.1 % (0.0-5.0); HEMATOCRIT 30.9 % (36-48); LYMPHOCYTES % (AUTO) 1.3 % (21.0-51.0); MEAN CORPUSCULAR HEMOGLOBIN 28.5 pg (27.0-33.0); MEAN CORPUSCULAR HGB CONC 30.7 g/dL (32.0-36.0); MEAN CORPUSCULAR VOLUME 92.8 fL (79-99); MONOCYTES % (AUTO) 3.1 % (3.0-13.0); NEUTROPHILS % (AUTO) 94.4 % (40.0-77.0); PLATELET COUNT (AUTO) 203 K/uL (130-400); RED BLOOD CELL COUNT(AUTO) 3.33 MIL/uL (4.00-5.50); RED CELL DISTRIBUTION WIDTH 13.2 % (11.0-15.5); WHITE BLOOD COUNT (AUTO) 17.1 K/uL (4.8-10.8)
[2021-05-25 00:46] LABS: CREATININE 1.1 mg/dL (0.5-1.5); POTASSIUM 4.7 mmol/L (3.5-5.1)
[2021-05-25] MEDS: SOLU-MEDROL 125MG VIAL IV SCH ×3 (00:50→17:30)
[2021-05-25] MEDS: INSULIN HUMULIN R 100 UNIT/ML 3ML SQ SCH ×4 (00:53→17:32)
[2021-05-25] MEDS: HYDRALAZINE 20MG/ML VIAL IV PRN ×3 (04:16→19:43)
[2021-05-25] MEDS: IPRATROPIUM 0.5 MG/2.5 ML INH IH SCH ×4 (06:51→23:10)
[2021-05-25] MEDS: ALBUTEROL 0.042% 1.25MG/3ML IH SCH ×4 (06:51→23:10)
[2021-05-25] MEDS: BUDESONIDE 0.5 MG/2 ML INH IH SCH ×2 (06:51→18:40)
[2021-05-25] MEDS ORDERED: LORAZEPAM 2 MG/ML 1 ML VIAL ONE (06:54)
[2021-05-25] MEDS ORDERED: LORAZEPAM 2 MG/ML 1 ML VIAL IVP SCH ×2 (07:00→08:30)
[2021-05-25] MEDS: LEVOFLOXACIN 250 MG/D5W 50ML 50 ML IVPB SCH (08:04)
[2021-05-25] MEDS: FAMOTIDINE 20MG VIAL IV SCH ×2 (08:04→19:43)
[2021-05-25] MEDS: ENOXAPARIN SODIUM 40 MG/0.4 ML SYRINGE SQ SCH (08:05)
[2021-05-25] MEDS ORDERED: MORPHINE 2 MG SYG IVP PRN (08:30)
[2021-05-25] MEDS ORDERED: CHLORDIAZEPOXIDE HCL 25 MG CAP PO PRN ×2 (08:30)
[2021-05-25] MEDS ORDERED: FUROSEMIDE 40MG VIAL IV SCH (08:30)
[2021-05-25] MEDS ORDERED: PHARMACY COMMUNICATION MISC PRN (08:30)
[2021-05-25] MEDS ORDERED: LORAZEPAM 2 MG/ML 1 ML VIAL IVP PRN (08:30)
[2021-05-25] MEDS: AZITHROMYCIN 500MG+NS 250ML 250 ML IV SCH (08:38)
[2021-05-25 08:58] LABS: INR 1.07 (0.85-1.15); PROTHROMBIN TIME 11.6 SEC (9.6-11.6)
[2021-05-25 08:59] LABS: MAGNESIUM 2.2 mg/dL (1.80-2.40); PARTIAL THROMBOPLASTIN TIME 23.4 SEC (26.3-35.5)
[2021-05-25] MEDS: LORAZEPAM 2 MG/ML 1 ML VIAL IVP SCH ×2 (09:26→20:59)
[2021-05-25] MEDS: LABETALOL 20MG SYG IV PRN (09:49)
[2021-05-25] MEDS ORDERED: SPIR25TA6 PO (10:32)
[2021-05-25] MEDS ORDERED: PRIM50TA23 PO (10:32)
[2021-05-25] MEDS ORDERED: GUAFACSF5L PO (10:32)
[2021-05-25] MEDS ORDERED: METF-444 PO (10:32)
[2021-05-25] MEDS ORDERED: LORA10TA7 PO ×2 (10:32)
[2021-05-25] MEDS ORDERED: LORA2ORA5 PO (10:32)
[2021-05-25] MEDS ORDERED: PRED10TA3 PO (10:32)
[2021-05-25] MEDS ORDERED: MORP20SO37 PO (10:33)
[2021-05-25] MEDS ORDERED: INSULIN GLARGINE 100 UNITS/ML 10 ML VIAL SQ SCH (14:00)
[2021-05-25] MEDS: LORAZEPAM 2 MG/ML 1 ML VIAL IVP PRN (16:32)
[2021-05-25] MEDS: MORPHINE 2 MG SYG IV PRN (17:59)
[2021-05-26] VITALS (26 sets, daily range): BP systolic 122–181; BP diastolic 57–89
[2021-05-26] MEDS: INSULIN HUMULIN R 100 UNIT/ML 3ML SQ SCH ×5 (00:08→23:40)
[2021-05-26] MEDS: LABETALOL 20MG SYG IV PRN ×2 (00:09→21:29)
[2021-05-26] MEDS: LORAZEPAM 2 MG/ML 1 ML VIAL IVP PRN ×2 (00:52→06:31)
[2021-05-26] MEDS: SOLU-MEDROL 125MG VIAL IV SCH ×3 (00:53→17:29)
[2021-05-26] MEDS: HYDRALAZINE 20MG/ML VIAL IV PRN ×4 (02:05→22:19)
[2021-05-26] MEDS: MORPHINE 2 MG SYG IV PRN ×2 (02:30→23:30)
[2021-05-26] MEDS: DEXMEDETOMIDINE 400MCG/NS100ML IV SCH ×5 (02:50→21:46)
[2021-05-26 03:38] LABS: BASOPHILS % (AUTO) 0.1 % (0.0-5.0); LYMPHOCYTES % (AUTO) 1.4 % (21.0-51.0); MEAN CORPUSCULAR HEMOGLOBIN 28.2 pg (27.0-33.0); MEAN CORPUSCULAR HGB CONC 30.3 g/dL (32.0-36.0); MEAN CORPUSCULAR VOLUME 92.9 fL (79-99); MONOCYTES % (AUTO) 2.8 % (3.0-13.0); NEUTROPHILS % (AUTO) 94.7 % (40.0-77.0); PLATELET COUNT (AUTO) 204 K/uL (130-400); RED BLOOD CELL COUNT(AUTO) 3.12 MIL/uL (4.00-5.50); RED CELL DISTRIBUTION WIDTH 13.7 % (11.0-15.5); WHITE BLOOD COUNT (AUTO) 12.3 K/uL (4.8-10.8)
[2021-05-26 04:13] LABS: ABG HCO3 26.3 mmol/L (21.0-28.0); ABG OXYGEN SATURATION 98.8 % (95.0-99.0); ABG PCO2 40 mmHg (32-45)
[2021-05-26 04:19] LABS: ALBUMIN 2.9 g/dL (3.5-5.0); BILIRUBIN,TOTAL 0.1 mg/dL (0.2-1.0); CREATININE 1.1 mg/dL (0.5-1.5); MAGNESIUM 2.2 mg/dL (1.80-2.40); POTASSIUM 4.5 mmol/L (3.5-5.1); TOTAL PROTEIN, SERUM 6.1 g/dL (6.0-8.3)
[2021-05-26] MEDS: IPRATROPIUM 0.5 MG/2.5 ML INH IH SCH (06:30)
[2021-05-26] MEDS: ALBUTEROL 0.042% 1.25MG/3ML IH SCH (06:31)
[2021-05-26] MEDS: BUDESONIDE 0.5 MG/2 ML INH IH SCH ×2 (06:31→18:50)
[2021-05-26] MEDS: LEVOFLOXACIN 250 MG/D5W 50ML 50 ML IVPB SCH (07:53)
[2021-05-26] MEDS: ENOXAPARIN SODIUM 40 MG/0.4 ML SYRINGE SQ SCH (07:57)
[2021-05-26] MEDS: LORAZEPAM 2 MG/ML 1 ML VIAL IVP SCH ×2 (08:12→20:49)
[2021-05-26] MEDS: FAMOTIDINE 20MG VIAL IV SCH ×2 (08:13→20:49)
[2021-05-26] MEDS: AZITHROMYCIN 500MG+NS 250ML 250 ML IV SCH (08:21)
[2021-05-26] MEDS: IPRATROPIUM/ALBUTEROL SULFATE 3 ML SOLUTION IH SCH ×7 (09:57→23:49)
[2021-05-27] VITALS (25 sets, daily range): BP systolic 105–182; BP diastolic 54–102
[2021-05-27] MEDS: SOLU-MEDROL 125MG VIAL IV SCH ×4 (00:59→23:05)
[2021-05-27] MEDS: LORAZEPAM 2 MG/ML 1 ML VIAL IVP PRN ×2 (01:18→23:02)
[2021-05-27] MEDS: DEXMEDETOMIDINE 400MCG/NS100ML IV SCH ×4 (01:35→14:09)
[2021-05-27] MEDS: IPRATROPIUM/ALBUTEROL SULFATE 3 ML SOLUTION IH SCH ×7 (02:51→22:08)
[2021-05-27] MEDS: MORPHINE 2 MG SYG IV PRN (03:27)
[2021-05-27 05:56] LABS: BASOPHILS % (AUTO) 0.2 % (0.0-5.0); HEMATOCRIT 29.7 % (36-48); LYMPHOCYTES % (AUTO) 1.4 % (21.0-51.0); MEAN CORPUSCULAR HGB CONC 29.3 g/dL (32.0-36.0); MEAN CORPUSCULAR VOLUME 95.5 fL (79-99); NEUTROPHILS % (AUTO) 92.3 % (40.0-77.0); PLATELET COUNT (AUTO) 175 K/uL (130-400); RED BLOOD CELL COUNT(AUTO) 3.11 MIL/uL (4.00-5.50); RED CELL DISTRIBUTION WIDTH 13.9 % (11.0-15.5); WHITE BLOOD COUNT (AUTO) 11.3 K/uL (4.8-10.8)
[2021-05-27] MEDS: INSULIN HUMULIN R 100 UNIT/ML 3ML SQ SCH ×3 (06:00→17:51)
[2021-05-27] MEDS: LABETALOL 20MG SYG IV PRN (06:07)
[2021-05-27 06:38] LABS: POTASSIUM 3.9 mmol/L (3.5-5.1)
[2021-05-27 06:39] LABS: ALBUMIN 2.8 g/dL (3.5-5.0); BILIRUBIN,TOTAL 0.2 mg/dL (0.2-1.0); CREATININE 0.9 mg/dL (0.5-1.5); MAGNESIUM 2.6 mg/dL (1.80-2.40); TOTAL PROTEIN, SERUM 5.7 g/dL (6.0-8.3)
[2021-05-27] MEDS: BUDESONIDE 0.5 MG/2 ML INH IH SCH ×2 (06:44→18:28)
[2021-05-27] MEDS: HYDRALAZINE 20MG/ML VIAL IV PRN (07:36)
[2021-05-27] MEDS: LEVOFLOXACIN 250 MG/D5W 50ML 50 ML IVPB SCH (07:38)
[2021-05-27] MEDS: FAMOTIDINE 20MG VIAL IV SCH ×2 (07:40→20:17)
[2021-05-27] MEDS ORDERED: IPRATROPIUM/ALBUTEROL SULFATE 3 ML SOLUTION IH PRN (08:00)
[2021-05-27] MEDS: AZITHROMYCIN 500MG+NS 250ML 250 ML IV SCH (08:13)
[2021-05-27] MEDS: LORAZEPAM 2 MG/ML 1 ML VIAL IVP SCH ×3 (08:23→20:18)
[2021-05-27] MEDS: ENOXAPARIN SODIUM 40 MG/0.4 ML SYRINGE SQ SCH (08:24)
[2021-05-27 08:43] LABS: ABG HCO3 26.5 mmol/L (21.0-28.0); ABG PCO2 47 mmHg (32-45)
[2021-05-27] MEDS ORDERED: LORAZEPAM 2 MG/ML 1 ML VIAL IVP PRN ×2 (09:30→12:30)
[2021-05-27] MEDS ORDERED: SPIRONOLACTONE 25 MG TAB PO SCH (11:11)
[2021-05-27] MEDS ORDERED: LOSARTAN 100 MG TABLET PO SCH (11:12)
[2021-05-27] MEDS: MORPHINE 15MG SR TAB PO SCH ×2 (13:30→20:32)
[2021-05-27] MEDS: ACETYLCYSTEINE 20% 200MG/ML 4ML VIAL IH SCH ×3 (18:13→22:16)
[2021-05-27] MEDS: SIMVASTATIN 10 MG TABLET PO SCH (20:16)
[2021-05-27] MEDS: CLONAZEPAM 1MG TAB PO SCH (20:17)
[2021-05-28] VITALS (54 sets, daily range): BP systolic 80–197; BP diastolic 37–110
[2021-05-28] MEDS: IPRATROPIUM/ALBUTEROL SULFATE 3 ML SOLUTION IH SCH ×6 (03:01→21:37)
[2021-05-28] MEDS: ACETYLCYSTEINE 20% 200MG/ML 4ML VIAL IH SCH ×6 (03:01→21:37)
[2021-05-28] MEDS: LORAZEPAM 2 MG/ML 1 ML VIAL IVP PRN (03:49)
[2021-05-28] MEDS: MORPHINE 2 MG SYG IV PRN (05:29)
[2021-05-28] MEDS: INSULIN HUMULIN R 100 UNIT/ML 3ML SQ SCH ×5 (06:10→23:45)
[2021-05-28] MEDS: BUDESONIDE 0.5 MG/2 ML INH IH SCH ×2 (06:15→18:29)
[2021-05-28] MEDS: LABETALOL 20MG SYG IV PRN (06:15)
[2021-05-28 06:21] LABS: BASOPHILS % (AUTO) 0.2 % (0.0-5.0); EOSINOPHILS % (AUTO) 1.4 % (0.0-8.0); HEMATOCRIT 31.1 % (36-48); LYMPHOCYTES % (AUTO) 1.3 % (21.0-51.0); MEAN CORPUSCULAR HEMOGLOBIN 28.1 pg (27.0-33.0); MEAN CORPUSCULAR HGB CONC 30.2 g/dL (32.0-36.0); MEAN CORPUSCULAR VOLUME 92.8 fL (79-99); MONOCYTES % (AUTO) 5.1 % (3.0-13.0); NEUTROPHILS % (AUTO) 89.9 % (40.0-77.0); NUCLEATED RED BLOOD CELLS 0.2 % (0.0-0.19); PLATELET COUNT (AUTO) 273 K/uL (130-400); RED BLOOD CELL COUNT(AUTO) 3.35 MIL/uL (4.00-5.50); RED CELL DISTRIBUTION WIDTH 14.2 % (11.0-15.5); WHITE BLOOD COUNT (AUTO) 17.3 K/uL (4.8-10.8)
[2021-05-28 06:28] LABS: POTASSIUM 4.4 mmol/L (3.5-5.1)
[2021-05-28] MEDS: AZITHROMYCIN 500MG+NS 250ML 250 ML IV SCH (08:28)
[2021-05-28] MEDS: LOSARTAN 100 MG TABLET PO SCH (08:28)
[2021-05-28] MEDS: SPIRONOLACTONE 25 MG TAB PO SCH (08:28)
[2021-05-28] MEDS: ENOXAPARIN SODIUM 40 MG/0.4 ML SYRINGE SQ SCH (08:31)
[2021-05-28] MEDS: FAMOTIDINE 20MG VIAL IV SCH ×2 (08:31→20:43)
[2021-05-28] MEDS: LEVOFLOXACIN 250 MG/D5W 50ML 50 ML IVPB SCH (08:32)
[2021-05-28] MEDS: CLONAZEPAM 1MG TAB PO SCH ×2 (08:32→20:03)
[2021-05-28] MEDS: LORAZEPAM 2 MG/ML 1 ML VIAL IVP SCH ×2 (08:37→20:03)
[2021-05-28] MEDS: MORPHINE 15MG SR TAB PO SCH ×2 (08:42→20:03)
[2021-05-28] MEDS ORDERED: LABETALOL HCL 100 MG TABLET PO SCH (09:00)
[2021-05-28] MEDS ORDERED: FENTANYL CITRATE PF 50 MCG/1 ML 2ML VIAL ONE (09:30)
[2021-05-28] MEDS ORDERED: FENTANYL 2500MCG+NS 250ML 250 ML IV ONE (09:31)
[2021-05-28] MEDS ORDERED: PROPOFOL 1000 MG/100 ML 100 ML IV ONE (09:31)
[2021-05-28 09:32] LABS: ABG HCO3 29.3 mmol/L (21.0-28.0); ABG OXYGEN SATURATION 94.5 % (95.0-99.0); ABG PCO2 53 mmHg (32-45)
[2021-05-28] MEDS ORDERED: NOREPINEPHRIN 4MG/NS 250ML 250 ML IV ONE (10:45)
[2021-05-28] MEDS ORDERED: NOREPINEPHRIN 4MG/NS 250ML 250 ML IV SCH (12:00)
[2021-05-28 12:05] LABS: ABG BASE EXCESS 2.3 mmol/L (-2.0-3.0); ABG HCO3 27.6 mmol/L (21.0-28.0); ABG PCO2 46 mmHg (32-45)
[2021-05-28] MEDS: SOLU-MEDROL 125MG VIAL IV SCH (13:43)
[2021-05-28] MEDS: SIMVASTATIN 10 MG TABLET PO SCH (20:43)
[2021-05-28] MEDS: PROPOFOL 1000 MG/100 ML IV PRN (22:39)
[2021-05-28] MEDS: FENTANYL 2500MCG+NS 250ML IV.SOLN IV SCH (22:41)
[2021-05-29] VITALS (54 sets, daily range): BP systolic 94–192; BP diastolic 40–114
[2021-05-29] MEDS: SOLU-MEDROL 125MG VIAL IV SCH ×2 (01:50→12:57)
[2021-05-29] MEDS: ACETYLCYSTEINE 20% 200MG/ML 4ML VIAL IH SCH ×6 (02:06→22:27)
[2021-05-29] MEDS: IPRATROPIUM/ALBUTEROL SULFATE 3 ML SOLUTION IH SCH ×6 (02:06→22:27)
[2021-05-29] MEDS: PROPOFOL 1000 MG/100 ML IV PRN (03:19)
[2021-05-29] MEDS: INSULIN HUMULIN R 100 UNIT/ML 3ML SQ SCH ×3 (06:00→17:20)
[2021-05-29 06:52] LABS: BASOPHILS % (AUTO) 0.1 % (0.0-5.0); HEMATOCRIT 28.3 % (36-48); LYMPHOCYTES % (AUTO) 1.9 % (21.0-51.0); MEAN CORPUSCULAR HEMOGLOBIN 28.3 pg (27.0-33.0); MEAN CORPUSCULAR HGB CONC 30.4 g/dL (32.0-36.0); MEAN CORPUSCULAR VOLUME 93.1 fL (79-99); MONOCYTES % (AUTO) 4.5 % (3.0-13.0); NEUTROPHILS % (AUTO) 91.2 % (40.0-77.0); NUCLEATED RED BLOOD CELLS 0.2 % (0.0-0.19); PLATELET COUNT (AUTO) 226 K/uL (130-400); RED BLOOD CELL COUNT(AUTO) 3.04 MIL/uL (4.00-5.50); RED CELL DISTRIBUTION WIDTH 13.9 % (11.0-15.5); WHITE BLOOD COUNT (AUTO) 9.1 K/uL (4.8-10.8)
[2021-05-29] MEDS: BUDESONIDE 0.5 MG/2 ML INH IH SCH ×2 (06:55→18:31)
[2021-05-29 07:11] LABS: CREATININE 1.1 mg/dL (0.5-1.5); MAGNESIUM 2.8 mg/dL (1.80-2.40); POTASSIUM 4.5 mmol/L (3.5-5.1)
[2021-05-29 07:47] LABS: ALBUMIN 2.7 g/dL (3.5-5.0); BILIRUBIN,TOTAL 0.3 mg/dL (0.2-1.0); CREATININE 1.1 mg/dL (0.5-1.5); POTASSIUM 4.5 mmol/L (3.5-5.1); TOTAL PROTEIN, SERUM 5.3 g/dL (6.0-8.3)
[2021-05-29] MEDS: LEVOFLOXACIN 250 MG/D5W 50ML 50 ML IVPB SCH (08:46)
[2021-05-29] MEDS: CLONAZEPAM 1MG TAB PO SCH ×2 (08:47→20:31)
[2021-05-29] MEDS: SPIRONOLACTONE 25 MG TAB PO SCH (08:47)
[2021-05-29] MEDS: AZITHROMYCIN 500MG+NS 250ML 250 ML IV SCH (08:47)
[2021-05-29] MEDS: ENOXAPARIN SODIUM 40 MG/0.4 ML SYRINGE SQ SCH (08:47)
[2021-05-29] MEDS: FAMOTIDINE 20MG VIAL IV SCH ×2 (08:47→20:30)
[2021-05-29 08:49] LABS: ABG BASE EXCESS 6.4 mmol/L (-2.0-3.0); ABG HCO3 31.5 mmol/L (21.0-28.0); ABG OXYGEN SATURATION 94.7 % (95.0-99.0); ABG PCO2 49 mmHg (32-45)
[2021-05-29] MEDS ORDERED: PHARMACY COMMUNICATION MISC SCH (09:30)
[2021-05-29] MEDS: MORPHINE 15MG SR TAB PO SCH ×2 (09:30→20:33)
[2021-05-29] MEDS: POLYETHYLENE GLYCOL 3350 17 GM POWD.PACK PO SCH (10:00)
[2021-05-29] MEDS: SENNOSIDES 8.6 MG TABLET PO SCH (10:00)
[2021-05-29] MEDS: LORAZEPAM 2 MG/ML 1 ML VIAL IVP SCH ×2 (10:12→20:32)
[2021-05-29] MEDS: LOSARTAN 100 MG TABLET PO SCH (11:43)
[2021-05-29] MEDS: FENTANYL 2500MCG+NS 250ML IV.SOLN IV SCH (11:44)
[2021-05-29] MEDS: DEXMEDETOMIDINE 400MCG/NS100ML IV SCH ×2 (16:18→23:21)
[2021-05-29] MEDS: HYDRALAZINE 20MG/ML VIAL IV PRN (16:18)
[2021-05-29] MEDS: LORAZEPAM 2 MG/ML 1 ML VIAL IVP PRN (17:44)
[2021-05-29] MEDS: SIMVASTATIN 10 MG TABLET PO SCH (20:30)
[2021-05-30] VITALS (25 sets, daily range): BP systolic 109–187; BP diastolic 47–79
[2021-05-30] MEDS: INSULIN HUMULIN R 100 UNIT/ML 3ML SQ SCH ×4 (00:28→18:36)
[2021-05-30] MEDS: SOLU-MEDROL 125MG VIAL IV SCH ×2 (00:43→13:56)
[2021-05-30] MEDS: IPRATROPIUM/ALBUTEROL SULFATE 3 ML SOLUTION IH SCH ×5 (01:31→22:42)
[2021-05-30] MEDS: ACETYLCYSTEINE 20% 200MG/ML 4ML VIAL IH SCH ×6 (01:31→22:42)
[2021-05-30] MEDS: LORAZEPAM 2 MG/ML 1 ML VIAL IVP SCH ×2 (03:44→20:27)
[2021-05-30] MEDS: DEXMEDETOMIDINE 400MCG/NS100ML IV SCH ×4 (05:11→20:28)
[2021-05-30 06:08] LABS: BASOPHILS % (AUTO) 0.2 % (0.0-5.0); LYMPHOCYTES % (AUTO) 1.9 % (21.0-51.0); MEAN CORPUSCULAR HEMOGLOBIN 27.7 pg (27.0-33.0); MEAN CORPUSCULAR HGB CONC 29.7 g/dL (32.0-36.0); MEAN CORPUSCULAR VOLUME 93.3 fL (79-99); MONOCYTES % (AUTO) 2.9 % (3.0-13.0); NEUTROPHILS % (AUTO) 90.3 % (40.0-77.0); PLATELET COUNT (AUTO) 226 K/uL (130-400); RED BLOOD CELL COUNT(AUTO) 3.43 MIL/uL (4.00-5.50); RED CELL DISTRIBUTION WIDTH 13.6 % (11.0-15.5); WHITE BLOOD COUNT (AUTO) 10.3 K/uL (4.8-10.8)
[2021-05-30 06:17] LABS: POTASSIUM 4.7 mmol/L (3.5-5.1)
[2021-05-30] MEDS: BUDESONIDE 0.5 MG/2 ML INH IH SCH ×2 (06:25→18:38)
[2021-05-30] MEDS: HYDRALAZINE 20MG/ML VIAL IV PRN ×2 (07:09→15:24)
[2021-05-30 08:33] LABS: ABG BASE EXCESS 1.3 mmol/L (-2.0-3.0); ABG HCO3 26.5 mmol/L (21.0-28.0); ABG OXYGEN SATURATION 96.4 % (95.0-99.0); ABG PCO2 44 mmHg (32-45)
[2021-05-30] MEDS: SENNOSIDES 8.6 MG TABLET PO SCH (08:59)
[2021-05-30] MEDS: POLYETHYLENE GLYCOL 3350 17 GM POWD.PACK PO SCH (08:59)
[2021-05-30] MEDS: MORPHINE 15MG SR TAB PO SCH ×2 (09:01→21:30)
[2021-05-30] MEDS: AZITHROMYCIN 500MG+NS 250ML 250 ML IV SCH (09:05)
[2021-05-30] MEDS: SPIRONOLACTONE 25 MG TAB PO SCH (09:05)
[2021-05-30] MEDS: LEVOFLOXACIN 250 MG/D5W 50ML 50 ML IVPB SCH (09:05)
[2021-05-30] MEDS: FAMOTIDINE 20MG VIAL IV SCH ×2 (09:05→20:27)
[2021-05-30] MEDS: CLONAZEPAM 1MG TAB PO SCH ×2 (09:05→20:27)
[2021-05-30] MEDS: LOSARTAN 100 MG TABLET PO SCH (09:05)
[2021-05-30] MEDS: ENOXAPARIN SODIUM 40 MG/0.4 ML SYRINGE SQ SCH (09:06)
[2021-05-30] MEDS: LORAZEPAM 2 MG/ML 1 ML VIAL IVP PRN (10:01)
[2021-05-30] MEDS: PROPOFOL 1000 MG/100 ML IV PRN (10:19)
[2021-05-30] MEDS: FENTANYL 2500MCG+NS 250ML IV.SOLN IV SCH (17:24)
[2021-05-30] MEDS: SIMVASTATIN 10 MG TABLET PO SCH (20:26)
[2021-05-31] VITALS (30 sets, daily range): BP systolic 92–190; BP diastolic 47–105
[2021-05-31] MEDS: SOLU-MEDROL 125MG VIAL IV SCH ×2 (01:30→12:43)
[2021-05-31] MEDS: IPRATROPIUM/ALBUTEROL SULFATE 3 ML SOLUTION IH SCH ×6 (02:12→22:49)
[2021-05-31] MEDS: ACETYLCYSTEINE 20% 200MG/ML 4ML VIAL IH SCH ×4 (02:13→09:15)
[2021-05-31] MEDS: DEXMEDETOMIDINE 400MCG/NS100ML IV SCH ×4 (04:45→23:28)
[2021-05-31] MEDS: INSULIN HUMULIN R 100 UNIT/ML 3ML SQ SCH ×5 (05:10→23:48)
[2021-05-31] MEDS: BUDESONIDE 0.5 MG/2 ML INH IH SCH ×2 (06:47→20:22)
[2021-05-31 07:10] LABS: BASOPHILS % (AUTO) 0.3 % (0.0-5.0); EOSINOPHILS % (AUTO) 0.2 % (0.0-8.0); HEMATOCRIT 32.8 % (36-48); LYMPHOCYTES % (AUTO) 3.5 % (21.0-51.0); MEAN CORPUSCULAR HEMOGLOBIN 28.7 pg (27.0-33.0); MEAN CORPUSCULAR HGB CONC 30.5 g/dL (32.0-36.0); MEAN CORPUSCULAR VOLUME 94.3 fL (79-99); MONOCYTES % (AUTO) 4.9 % (3.0-13.0); NEUTROPHILS % (AUTO) 85.2 % (40.0-77.0); NUCLEATED RED BLOOD CELLS 0.3 % (0.0-0.19); PLATELET COUNT (AUTO) 228 K/uL (130-400); RED BLOOD CELL COUNT(AUTO) 3.48 MIL/uL (4.00-5.50); RED CELL DISTRIBUTION WIDTH 13.6 % (11.0-15.5); WHITE BLOOD COUNT (AUTO) 10.9 K/uL (4.8-10.8)
[2021-05-31 07:24] LABS: CREATININE 0.8 mg/dL (0.5-1.5); POTASSIUM 4.2 mmol/L (3.5-5.1)
[2021-05-31] MEDS: LEVOFLOXACIN 250 MG/D5W 50ML 50 ML IVPB SCH (08:58)
[2021-05-31] MEDS: AZITHROMYCIN 500MG+NS 250ML 250 ML IV SCH (08:58)
[2021-05-31] MEDS: ENOXAPARIN SODIUM 40 MG/0.4 ML SYRINGE SQ SCH (08:59)
[2021-05-31] MEDS: POLYETHYLENE GLYCOL 3350 17 GM POWD.PACK PO SCH (08:59)
[2021-05-31] MEDS: SENNOSIDES 8.6 MG TABLET PO SCH (09:00)
[2021-05-31] MEDS: MORPHINE 15MG SR TAB PO SCH ×2 (09:00→20:46)
[2021-05-31] MEDS: SPIRONOLACTONE 25 MG TAB PO SCH (09:00)
[2021-05-31] MEDS: FAMOTIDINE 20MG VIAL IV SCH ×2 (09:01→21:24)
[2021-05-31] MEDS: CLONAZEPAM 1MG TAB PO SCH ×2 (09:01→20:45)
[2021-05-31] MEDS: LORAZEPAM 2 MG/ML 1 ML VIAL IVP SCH ×2 (09:02→20:45)
[2021-05-31] MEDS: LOSARTAN 100 MG TABLET PO SCH (09:02)
[2021-05-31 10:21] LABS: ABG BASE EXCESS 4.5 mmol/L (-2.0-3.0); ABG HCO3 27.8 mmol/L (21.0-28.0); ABG OXYGEN SATURATION 98.9 % (95.0-99.0); ABG PCO2 37 mmHg (32-45)
[2021-05-31] MEDS: FENTANYL 2500MCG+NS 250ML IV.SOLN IV SCH (16:36)
[2021-05-31] MEDS: SIMVASTATIN 10 MG TABLET PO SCH (21:24)
[2021-06-01] VITALS (41 sets, daily range): BP systolic 115–183; BP diastolic 55–99
[2021-06-01] MEDS: IPRATROPIUM/ALBUTEROL SULFATE 3 ML SOLUTION IH SCH ×5 (01:42→21:32)
[2021-06-01] MEDS: SOLU-MEDROL 125MG VIAL IV SCH ×2 (01:57→12:32)
[2021-06-01] MEDS: DEXMEDETOMIDINE 400MCG/NS100ML IV SCH ×6 (03:15→22:29)
[2021-06-01] MEDS: INSULIN HUMULIN R 100 UNIT/ML 3ML SQ SCH ×3 (06:06→18:50)
[2021-06-01 06:31] LABS: BASOPHILS % (AUTO) 0.2 % (0.0-5.0); HEMATOCRIT 29.4 % (36-48); MEAN CORPUSCULAR HEMOGLOBIN 28.4 pg (27.0-33.0); MEAN CORPUSCULAR HGB CONC 31.6 g/dL (32.0-36.0); MEAN CORPUSCULAR VOLUME 89.9 fL (79-99); NEUTROPHILS % (AUTO) 92.2 % (40.0-77.0); NUCLEATED RED BLOOD CELLS 0.1 % (0.0-0.19); PLATELET COUNT (AUTO) 223 K/uL (130-400); RED BLOOD CELL COUNT(AUTO) 3.27 MIL/uL (4.00-5.50); RED CELL DISTRIBUTION WIDTH 13.7 % (11.0-15.5); WHITE BLOOD COUNT (AUTO) 13.6 K/uL (4.8-10.8)
[2021-06-01] MEDS: BUDESONIDE 0.5 MG/2 ML INH IH SCH ×2 (06:42→18:44)
[2021-06-01 06:52] LABS: CREATININE 0.8 mg/dL (0.5-1.5); MAGNESIUM 2.5 mg/dL (1.80-2.40); POTASSIUM 4.9 mmol/L (3.5-5.1)
[2021-06-01] MEDS: SENNOSIDES 8.6 MG TABLET PO SCH (08:33)
[2021-06-01] MEDS: SPIRONOLACTONE 25 MG TAB PO SCH (08:33)
[2021-06-01] MEDS: AZITHROMYCIN 500MG+NS 250ML 250 ML IV SCH (08:33)
[2021-06-01] MEDS: LEVOFLOXACIN 250 MG/D5W 50ML 50 ML IVPB SCH (08:33)
[2021-06-01] MEDS: FAMOTIDINE 20MG VIAL IV SCH ×2 (08:33→21:20)
[2021-06-01] MEDS: LOSARTAN 100 MG TABLET PO SCH (08:34)
[2021-06-01] MEDS: ENOXAPARIN SODIUM 40 MG/0.4 ML SYRINGE SQ SCH (08:35)
[2021-06-01] MEDS: POLYETHYLENE GLYCOL 3350 17 GM POWD.PACK PO SCH (09:20)
[2021-06-01 09:56] LABS: ABG BASE EXCESS 3.4 mmol/L (-2.0-3.0); ABG PCO2 42 mmHg (32-45)
[2021-06-01] MEDS ORDERED: CLONAZEPAM 1MG TAB PO SCH ×2 (10:00→13:00)
[2021-06-01] MEDS: CLONAZEPAM 1MG TAB PO SCH (12:32)
[2021-06-01] MEDS: FENTANYL 2500MCG+NS 250ML IV.SOLN IV SCH (12:36)
[2021-06-01] MEDS ORDERED: LACTULOSE 20 GM/30 ML UDCUP PO PRN (15:30)
[2021-06-01] MEDS: SIMVASTATIN 10 MG TABLET PO SCH (21:20)
[2021-06-01] MEDS: INSULIN GLARGINE 100 UNITS/ML 10 ML VIAL SQ SCH (21:22)
[2021-06-02] VITALS (34 sets, daily range): BP systolic 90–180; BP diastolic 35–79
[2021-06-02] MEDS: CLONAZEPAM 1MG TAB PO SCH ×2 (00:47→12:04)
[2021-06-02] MEDS: INSULIN HUMULIN R 100 UNIT/ML 3ML SQ SCH ×4 (00:47→18:17)
[2021-06-02] MEDS: SOLU-MEDROL 125MG VIAL IV SCH ×2 (00:50→12:04)
[2021-06-02] MEDS: DEXMEDETOMIDINE 400MCG/NS100ML IV SCH ×6 (01:42→18:18)
[2021-06-02] MEDS: IPRATROPIUM/ALBUTEROL SULFATE 3 ML SOLUTION IH SCH ×5 (02:08→22:06)
[2021-06-02] MEDS: PROPOFOL 1000 MG/100 ML IV PRN ×3 (05:20→21:35)
[2021-06-02] MEDS: BUDESONIDE 0.5 MG/2 ML INH IH SCH ×2 (06:34→18:29)
[2021-06-02 06:55] LABS: BASOPHILS % (AUTO) 0.1 % (0.0-5.0); EOSINOPHILS % (AUTO) 0.4 % (0.0-8.0); HEMATOCRIT 27.6 % (36-48); LYMPHOCYTES % (AUTO) 5.1 % (21.0-51.0); MEAN CORPUSCULAR HEMOGLOBIN 28.5 pg (27.0-33.0); MEAN CORPUSCULAR HGB CONC 31.9 g/dL (32.0-36.0); MEAN CORPUSCULAR VOLUME 89.3 fL (79-99); MONOCYTES % (AUTO) 3.9 % (3.0-13.0); NEUTROPHILS % (AUTO) 85.5 % (40.0-77.0); NUCLEATED RED BLOOD CELLS 0.1 % (0.0-0.19); PLATELET COUNT (AUTO) 198 K/uL (130-400); RED BLOOD CELL COUNT(AUTO) 3.09 MIL/uL (4.00-5.50); RED CELL DISTRIBUTION WIDTH 13.8 % (11.0-15.5); WHITE BLOOD COUNT (AUTO) 13.5 K/uL (4.8-10.8)
[2021-06-02 07:07] LABS: CREATININE 0.8 mg/dL (0.5-1.5); POTASSIUM 4.1 mmol/L (3.5-5.1)
[2021-06-02 07:23] LABS: ABG BASE EXCESS 2.6 mmol/L (-2.0-3.0); ABG HCO3 26.7 mmol/L (21.0-28.0); ABG OXYGEN SATURATION 93.2 % (95.0-99.0); ABG PCO2 40 mmHg (32-45)
[2021-06-02] MEDS: SPIRONOLACTONE 25 MG TAB PO SCH (08:58)
[2021-06-02] MEDS: FAMOTIDINE 20MG VIAL IV SCH ×2 (08:58→21:06)
[2021-06-02] MEDS: AZITHROMYCIN 500MG+NS 250ML 250 ML IV SCH (08:58)
[2021-06-02] MEDS: LOSARTAN 100 MG TABLET PO SCH (08:58)
[2021-06-02] MEDS: SENNOSIDES 8.6 MG TABLET PO SCH (08:59)
[2021-06-02] MEDS: POLYETHYLENE GLYCOL 3350 17 GM POWD.PACK PO SCH (08:59)
[2021-06-02] MEDS: ENOXAPARIN SODIUM 40 MG/0.4 ML SYRINGE SQ SCH (09:00)
[2021-06-02] MEDS: LEVOFLOXACIN 250 MG/D5W 50ML 50 ML IVPB SCH (09:00)
[2021-06-02] MEDS: FENTANYL 2500MCG+NS 250ML IV.SOLN IV SCH (09:03)
[2021-06-02] MEDS: HYDRALAZINE 20MG/ML VIAL IV PRN (18:32)
[2021-06-02] MEDS: SIMVASTATIN 10 MG TABLET PO SCH (21:06)
[2021-06-02] MEDS: INSULIN GLARGINE 100 UNITS/ML 10 ML VIAL SQ SCH (21:08)
[2021-06-02] MEDS: BALSAM PERU/CASTOR OIL 60 GM TUBE TP SCH (21:08)
[2021-06-03] VITALS (43 sets, daily range): BP systolic 90–168; BP diastolic 45–77
[2021-06-03] MEDS: SOLU-MEDROL 125MG VIAL IV SCH (00:39)
[2021-06-03] MEDS: CLONAZEPAM 1MG TAB PO SCH (00:40)
[2021-06-03] MEDS: INSULIN HUMULIN R 100 UNIT/ML 3ML SQ SCH ×3 (00:42→12:00)
[2021-06-03] MEDS: IPRATROPIUM/ALBUTEROL SULFATE 3 ML SOLUTION IH SCH ×6 (02:09→21:37)
[2021-06-03 03:33] LABS: ABG BASE EXCESS 1.5 mmol/L (-2.0-3.0); ABG HCO3 25.2 mmol/L (21.0-28.0); ABG OXYGEN SATURATION 87.3 % (95.0-99.0); ABG PCO2 37 mmHg (32-45)
[2021-06-03] MEDS: PROPOFOL 1000 MG/100 ML IV PRN ×3 (04:56→19:31)
[2021-06-03 05:26] LABS: BASOPHILS % (AUTO) 0.3 % (0.0-5.0); HEMATOCRIT 31.2 % (36-48); LYMPHOCYTES % (AUTO) 1.1 % (21.0-51.0); MEAN CORPUSCULAR HEMOGLOBIN 28.9 pg (27.0-33.0); MEAN CORPUSCULAR HGB CONC 32.4 g/dL (32.0-36.0); MEAN CORPUSCULAR VOLUME 89.4 fL (79-99); NEUTROPHILS % (AUTO) 90.7 % (40.0-77.0); NUCLEATED RED BLOOD CELLS 0.1 % (0.0-0.19); PLATELET COUNT (AUTO) 235 K/uL (130-400); RED BLOOD CELL COUNT(AUTO) 3.49 MIL/uL (4.00-5.50); RED CELL DISTRIBUTION WIDTH 13.5 % (11.0-15.5); WHITE BLOOD COUNT (AUTO) 22.2 K/uL (4.8-10.8)
[2021-06-03 05:56] LABS: ALBUMIN 2.4 g/dL (3.5-5.0); BILIRUBIN,TOTAL 0.5 mg/dL (0.2-1.0); CREATININE 0.8 mg/dL (0.5-1.5); POTASSIUM 4.7 mmol/L (3.5-5.1); TOTAL PROTEIN, SERUM 5.3 g/dL (6.0-8.3)
[2021-06-03] MEDS: BUDESONIDE 0.5 MG/2 ML INH IH SCH ×2 (06:35→18:40)
[2021-06-03] MEDS: LEVOFLOXACIN 250 MG/D5W 50ML 50 ML IVPB SCH (09:46)
[2021-06-03] MEDS: FAMOTIDINE 20MG VIAL IV SCH ×2 (09:46→21:00)
[2021-06-03] MEDS: AZITHROMYCIN 500MG+NS 250ML 250 ML IV SCH (09:46)
[2021-06-03] MEDS: SPIRONOLACTONE 25 MG TAB PO SCH (09:47)
[2021-06-03] MEDS: LOSARTAN 100 MG TABLET PO SCH (09:47)
[2021-06-03] MEDS: SENNOSIDES 8.6 MG TABLET PO SCH (09:47)
[2021-06-03] MEDS: ENOXAPARIN SODIUM 40 MG/0.4 ML SYRINGE SQ SCH (09:48)
[2021-06-03] MEDS: BALSAM PERU/CASTOR OIL 60 GM TUBE TP SCH ×2 (09:49→21:00)
[2021-06-03] MEDS: POLYETHYLENE GLYCOL 3350 17 GM POWD.PACK PO SCH (09:49)
[2021-06-03] MEDS ORDERED: FENTANYL 2500MCG+NS 250ML 250 ML IV ONE (15:37)
[2021-06-03] MEDS: ACETAMINOPHEN 325 MG TAB PO PRN (20:00)
[2021-06-03] MEDS: INSULIN GLARGINE 100 UNITS/ML 10 ML VIAL SQ SCH (21:00)
[2021-06-03] MEDS: SIMVASTATIN 10 MG TABLET PO SCH (21:00)
[2021-06-04] VITALS (26 sets, daily range): BP systolic 98–172; BP diastolic 39–90
[2021-06-04] MEDS: CLONAZEPAM 1MG TAB PO SCH ×2 (01:00→12:17)
[2021-06-04] MEDS: SOLU-MEDROL 125MG VIAL IV SCH ×2 (01:00→13:08)
[2021-06-04] MEDS: IPRATROPIUM/ALBUTEROL SULFATE 3 ML SOLUTION IH SCH ×6 (01:17→23:27)
[2021-06-04] MEDS: PROPOFOL 1000 MG/100 ML IV PRN ×2 (02:40→15:00)
[2021-06-04 03:51] LABS: ABG BASE EXCESS 2.9 mmol/L (-2.0-3.0); ABG HCO3 28.8 mmol/L (21.0-28.0); ABG PCO2 51 mmHg (32-45)
[2021-06-04 04:35] LABS: BASOPHILS % (AUTO) 0.2 % (0.0-5.0); HEMATOCRIT 30.3 % (36-48); LYMPHOCYTES % (AUTO) 1.2 % (21.0-51.0); MEAN CORPUSCULAR HEMOGLOBIN 29.2 pg (27.0-33.0); MEAN CORPUSCULAR HGB CONC 32.7 g/dL (32.0-36.0); MEAN CORPUSCULAR VOLUME 89.4 fL (79-99); MONOCYTES % (AUTO) 2.5 % (3.0-13.0); NEUTROPHILS % (AUTO) 92.6 % (40.0-77.0); NUCLEATED RED BLOOD CELLS 0.1 % (0.0-0.19); PLATELET COUNT (AUTO) 261 K/uL (130-400); RED BLOOD CELL COUNT(AUTO) 3.39 MIL/uL (4.00-5.50); RED CELL DISTRIBUTION WIDTH 14.3 % (11.0-15.5); WHITE BLOOD COUNT (AUTO) 29.1 K/uL (4.8-10.8)
[2021-06-04 05:06] LABS: ALBUMIN 2.5 g/dL (3.5-5.0); BILIRUBIN,TOTAL 0.3 mg/dL (0.2-1.0); TOTAL PROTEIN, SERUM 5.7 g/dL (6.0-8.3)
[2021-06-04] MEDS: BUDESONIDE 0.5 MG/2 ML INH IH SCH ×2 (06:22→18:39)
[2021-06-04] MEDS: INSULIN HUMULIN R 100 UNIT/ML 3ML SQ SCH ×5 (06:32→23:33)
[2021-06-04] MEDS: FAMOTIDINE 20MG VIAL IV SCH ×2 (08:52→20:47)
[2021-06-04] MEDS: AZITHROMYCIN 500MG+NS 250ML 250 ML IV SCH (08:52)
[2021-06-04] MEDS: POLYETHYLENE GLYCOL 3350 17 GM POWD.PACK PO SCH (08:53)
[2021-06-04] MEDS: SPIRONOLACTONE 25 MG TAB PO SCH (08:53)
[2021-06-04] MEDS: SENNOSIDES 8.6 MG TABLET PO SCH (08:53)
[2021-06-04] MEDS: LOSARTAN 100 MG TABLET PO SCH (08:53)
[2021-06-04] MEDS: ENOXAPARIN SODIUM 40 MG/0.4 ML SYRINGE SQ SCH (08:54)
[2021-06-04] MEDS: LEVOFLOXACIN 250 MG/D5W 50ML 50 ML IVPB SCH (08:54)
[2021-06-04] MEDS: BALSAM PERU/CASTOR OIL 60 GM TUBE TP SCH ×3 (08:54→20:50)
[2021-06-04] MEDS: LACTULOSE 20 GM/30 ML UDCUP PO SCH ×2 (12:17→20:47)
[2021-06-04] MEDS: SIMVASTATIN 10 MG TABLET PO SCH (20:47)
[2021-06-04] MEDS: INSULIN GLARGINE 100 UNITS/ML 10 ML VIAL SQ SCH (20:49)
[2021-06-04] MEDS ORDERED: FENTANYL 2500MCG+NS 250ML 250 ML IV ONE (21:16)
[2021-06-05] VITALS (26 sets, daily range): BP systolic 137–188; BP diastolic 54–85
[2021-06-05] MEDS: SOLU-MEDROL 125MG VIAL IV SCH ×2 (01:05→13:33)
[2021-06-05] MEDS: CLONAZEPAM 1MG TAB PO SCH ×3 (01:05→23:40)
[2021-06-05] MEDS: IPRATROPIUM/ALBUTEROL SULFATE 3 ML SOLUTION IH SCH ×6 (02:22→23:28)
[2021-06-05] MEDS: PROPOFOL 1000 MG/100 ML IV PRN ×2 (03:58→16:46)
[2021-06-05 04:16] LABS: ABG BASE EXCESS 4.9 mmol/L (-2.0-3.0); ABG HCO3 29.3 mmol/L (21.0-28.0); ABG OXYGEN SATURATION 97.3 % (95.0-99.0); ABG PCO2 43 mmHg (32-45)
[2021-06-05 04:56] LABS: BASOPHILS % (AUTO) 0.2 % (0.0-5.0); HEMATOCRIT 30.9 % (36-48); LYMPHOCYTES % (AUTO) 1.4 % (21.0-51.0); MEAN CORPUSCULAR HEMOGLOBIN 27.7 pg (27.0-33.0); MEAN CORPUSCULAR HGB CONC 30.4 g/dL (32.0-36.0); MEAN CORPUSCULAR VOLUME 91.2 fL (79-99); MONOCYTES % (AUTO) 4.1 % (3.0-13.0); NEUTROPHILS % (AUTO) 92.8 % (40.0-77.0); NUCLEATED RED BLOOD CELLS 0.1 % (0.0-0.19); PLATELET COUNT (AUTO) 267 K/uL (130-400); RED BLOOD CELL COUNT(AUTO) 3.39 MIL/uL (4.00-5.50); RED CELL DISTRIBUTION WIDTH 14.4 % (11.0-15.5); WHITE BLOOD COUNT (AUTO) 25.9 K/uL (4.8-10.8)
[2021-06-05 05:07] LABS: ALBUMIN 2.7 g/dL (3.5-5.0); BILIRUBIN,TOTAL 0.3 mg/dL (0.2-1.0); CREATININE 0.8 mg/dL (0.5-1.5); POTASSIUM 4.7 mmol/L (3.5-5.1); TOTAL PROTEIN, SERUM 5.9 g/dL (6.0-8.3)
[2021-06-05] MEDS: INSULIN HUMULIN R 100 UNIT/ML 3ML SQ SCH ×4 (05:52→23:23)
[2021-06-05] MEDS: BUDESONIDE 0.5 MG/2 ML INH IH SCH ×2 (06:35→18:18)
[2021-06-05] MEDS: LABETALOL 20MG SYG IV PRN ×2 (07:33→21:40)
[2021-06-05] MEDS: AZITHROMYCIN 500MG+NS 250ML 250 ML IV SCH (08:08)
[2021-06-05] MEDS: LOSARTAN 100 MG TABLET PO SCH (08:08)
[2021-06-05] MEDS: SPIRONOLACTONE 25 MG TAB PO SCH (08:08)
[2021-06-05] MEDS: FAMOTIDINE 20MG VIAL IV SCH ×2 (08:08→20:15)
[2021-06-05] MEDS: ENOXAPARIN SODIUM 40 MG/0.4 ML SYRINGE SQ SCH (08:09)
[2021-06-05] MEDS: SENNOSIDES 8.6 MG TABLET PO SCH (08:09)
[2021-06-05] MEDS: LACTULOSE 20 GM/30 ML UDCUP PO SCH ×2 (08:09→20:15)
[2021-06-05] MEDS: LEVOFLOXACIN 250 MG/D5W 50ML 50 ML IVPB SCH (08:09)
[2021-06-05] MEDS: POLYETHYLENE GLYCOL 3350 17 GM POWD.PACK PO SCH (08:09)
[2021-06-05] MEDS: BALSAM PERU/CASTOR OIL 60 GM TUBE TP SCH ×3 (08:10→20:15)
[2021-06-05] MEDS: HYDRALAZINE 20MG/ML VIAL IV PRN (10:30)
[2021-06-05] MEDS: SIMVASTATIN 10 MG TABLET PO SCH (20:15)
[2021-06-05] MEDS: INSULIN GLARGINE 100 UNITS/ML 10 ML VIAL SQ SCH (20:25)
[2021-06-06] VITALS (32 sets, daily range): BP systolic 114–192; BP diastolic 49–107
[2021-06-06] MEDS: SOLU-MEDROL 125MG VIAL IV SCH ×2 (00:31→13:20)
[2021-06-06] MEDS: PROPOFOL 1000 MG/100 ML IV PRN (03:02)
[2021-06-06] MEDS: IPRATROPIUM/ALBUTEROL SULFATE 3 ML SOLUTION IH SCH ×6 (03:18→21:39)
[2021-06-06 04:27] LABS: BASOPHILS % (AUTO) 0.1 % (0.0-5.0); HEMATOCRIT 25.3 % (36-48); LYMPHOCYTES % (AUTO) 1.9 % (21.0-51.0); MEAN CORPUSCULAR HEMOGLOBIN 28.8 pg (27.0-33.0); MONOCYTES % (AUTO) 4.1 % (3.0-13.0); NEUTROPHILS % (AUTO) 92.9 % (40.0-77.0); PLATELET COUNT (AUTO) 210 K/uL (130-400); RED BLOOD CELL COUNT(AUTO) 2.81 MIL/uL (4.00-5.50); RED CELL DISTRIBUTION WIDTH 14.5 % (11.0-15.5); WHITE BLOOD COUNT (AUTO) 16.3 K/uL (4.8-10.8)
[2021-06-06] MEDS: LABETALOL 20MG SYG IV PRN (05:00)
[2021-06-06 05:14] LABS: ALBUMIN 2.3 g/dL (3.5-5.0); BILIRUBIN,TOTAL 0.3 mg/dL (0.2-1.0); CREATININE 0.7 mg/dL (0.5-1.5); POTASSIUM 4.7 mmol/L (3.5-5.1); TOTAL PROTEIN, SERUM 5.2 g/dL (6.0-8.3)
[2021-06-06] MEDS: INSULIN HUMULIN R 100 UNIT/ML 3ML SQ SCH ×3 (05:59→19:09)
[2021-06-06] MEDS: BUDESONIDE 0.5 MG/2 ML INH IH SCH ×2 (06:12→18:51)
[2021-06-06] MEDS: LACTULOSE 20 GM/30 ML UDCUP PO SCH ×2 (08:01→21:07)
[2021-06-06] MEDS: POLYETHYLENE GLYCOL 3350 17 GM POWD.PACK PO SCH (08:01)
[2021-06-06] MEDS: SENNOSIDES 8.6 MG TABLET PO SCH (08:01)
[2021-06-06] MEDS: BALSAM PERU/CASTOR OIL 60 GM TUBE TP SCH ×3 (08:16→21:09)
[2021-06-06] MEDS: AZITHROMYCIN 500MG+NS 250ML 250 ML IV SCH (08:16)
[2021-06-06] MEDS: ENOXAPARIN SODIUM 40 MG/0.4 ML SYRINGE SQ SCH (08:16)
[2021-06-06] MEDS: FAMOTIDINE 20MG VIAL IV SCH ×2 (08:16→21:07)
[2021-06-06] MEDS: LEVOFLOXACIN 250 MG/D5W 50ML 50 ML IVPB SCH (08:16)
[2021-06-06] MEDS: DEXMEDETOMIDINE 400MCG/NS100ML IV SCH (08:24)
[2021-06-06] MEDS: LOSARTAN 100 MG TABLET PO SCH (09:00)
[2021-06-06] MEDS: SPIRONOLACTONE 25 MG TAB PO SCH (09:00)
[2021-06-06] MEDS: CLONAZEPAM 1MG TAB PO SCH (13:00)
[2021-06-06] MEDS: SIMVASTATIN 10 MG TABLET PO SCH (21:07)
[2021-06-06] MEDS: INSULIN GLARGINE 100 UNITS/ML 10 ML VIAL SQ SCH (21:09)
[2021-06-07] VITALS (37 sets, daily range): BP systolic 80–154; BP diastolic 25–78
[2021-06-07] MEDS: SOLU-MEDROL 125MG VIAL IV SCH ×2 (00:35→12:31)
[2021-06-07] MEDS: CLONAZEPAM 1MG TAB PO SCH ×2 (00:35→12:20)
[2021-06-07] MEDS: INSULIN HUMULIN R 100 UNIT/ML 3ML SQ SCH ×5 (00:49→23:06)
[2021-06-07] MEDS: IPRATROPIUM/ALBUTEROL SULFATE 3 ML SOLUTION IH SCH ×6 (02:38→23:49)
[2021-06-07 03:30] LABS: BASOPHILS % (AUTO) 0.1 % (0.0-5.0); EOSINOPHILS % (AUTO) 0.1 % (0.0-8.0); HEMATOCRIT 25.2 % (36-48); MEAN CORPUSCULAR HEMOGLOBIN 27.9 pg (27.0-33.0); MEAN CORPUSCULAR HGB CONC 31.3 g/dL (32.0-36.0); NEUTROPHILS % (AUTO) 85.2 % (40.0-77.0); PLATELET COUNT (AUTO) 200 K/uL (130-400); RED BLOOD CELL COUNT(AUTO) 2.83 MIL/uL (4.00-5.50); WHITE BLOOD COUNT (AUTO) 10.9 K/uL (4.8-10.8)
[2021-06-07 03:45] LABS: ALBUMIN 2.3 g/dL (3.5-5.0); BILIRUBIN,TOTAL 0.2 mg/dL (0.2-1.0); CREATININE 0.7 mg/dL (0.5-1.5); POTASSIUM 4.2 mmol/L (3.5-5.1); TOTAL PROTEIN, SERUM 5.3 g/dL (6.0-8.3)
[2021-06-07 04:33] LABS: ABG BASE EXCESS 10.1 mmol/L (-2.0-3.0); ABG HCO3 33.9 mmol/L (21.0-28.0); ABG OXYGEN SATURATION 98.1 % (95.0-99.0); ABG PCO2 42 mmHg (32-45)
[2021-06-07] MEDS: DEXMEDETOMIDINE 400MCG/NS100ML IV SCH ×2 (05:31→16:33)
[2021-06-07] MEDS: BUDESONIDE 0.5 MG/2 ML INH IH SCH ×2 (06:30→19:12)
[2021-06-07] MEDS: SPIRONOLACTONE 25 MG TAB PO SCH (08:44)
[2021-06-07] MEDS: SENNOSIDES 8.6 MG TABLET PO SCH (08:44)
[2021-06-07] MEDS: AZITHROMYCIN 500MG+NS 250ML 250 ML IV SCH (08:44)
[2021-06-07] MEDS: FAMOTIDINE 20MG VIAL IV SCH ×2 (08:44→20:44)
[2021-06-07] MEDS: LACTULOSE 20 GM/30 ML UDCUP PO SCH ×2 (08:44→20:45)
[2021-06-07] MEDS: POLYETHYLENE GLYCOL 3350 17 GM POWD.PACK PO SCH (08:44)
[2021-06-07] MEDS: LEVOFLOXACIN 250 MG/D5W 50ML 50 ML IVPB SCH ×2 (08:44→10:44)
[2021-06-07] MEDS: LOSARTAN 100 MG TABLET PO SCH (08:45)
[2021-06-07] MEDS: ENOXAPARIN SODIUM 40 MG/0.4 ML SYRINGE SQ SCH (08:47)
[2021-06-07] MEDS ORDERED: 0.9% NACL 250ML IVPB SCH (10:30)
[2021-06-07] MEDS ORDERED: AZITHROMYCIN 500MG VIAL IVPB SCH (10:30)
[2021-06-07] MEDS: BALSAM PERU/CASTOR OIL 60 GM TUBE TP SCH ×3 (12:34→20:58)
[2021-06-07] MEDS: SIMVASTATIN 10 MG TABLET PO SCH (20:45)
[2021-06-07] MEDS: INSULIN GLARGINE 100 UNITS/ML 10 ML VIAL SQ SCH (20:46)
[2021-06-08] VITALS (35 sets, daily range): BP systolic 92–224; BP diastolic 39–172
[2021-06-08] MEDS: CLONAZEPAM 1MG TAB PO SCH ×2 (00:26→11:37)
[2021-06-08] MEDS: SOLU-MEDROL 125MG VIAL IV SCH ×2 (00:26→13:30)
[2021-06-08] MEDS: DEXMEDETOMIDINE 400MCG/NS100ML IV SCH ×3 (01:30→20:15)
[2021-06-08 03:51] LABS: BASOPHILS % (AUTO) 0.1 % (0.0-5.0); EOSINOPHILS % (AUTO) 0.2 % (0.0-8.0); HEMATOCRIT 26.1 % (36-48); MEAN CORPUSCULAR HEMOGLOBIN 28.2 pg (27.0-33.0); MEAN CORPUSCULAR HGB CONC 32.2 g/dL (32.0-36.0); MEAN CORPUSCULAR VOLUME 87.6 fL (79-99); MONOCYTES % (AUTO) 3.4 % (3.0-13.0); NEUTROPHILS % (AUTO) 91.6 % (40.0-77.0); PLATELET COUNT (AUTO) 194 K/uL (130-400); RED BLOOD CELL COUNT(AUTO) 2.98 MIL/uL (4.00-5.50); RED CELL DISTRIBUTION WIDTH 14.3 % (11.0-15.5); WHITE BLOOD COUNT (AUTO) 13.4 K/uL (4.8-10.8)
[2021-06-08 04:05] LABS: ALBUMIN 2.5 g/dL (3.5-5.0); BILIRUBIN,TOTAL 0.4 mg/dL (0.2-1.0); CREATININE 0.7 mg/dL (0.5-1.5); TOTAL PROTEIN, SERUM 5.5 g/dL (6.0-8.3)
[2021-06-08] MEDS: INSULIN HUMULIN R 100 UNIT/ML 3ML SQ SCH ×4 (06:16→23:24)
[2021-06-08] MEDS: BUDESONIDE 0.5 MG/2 ML INH IH SCH ×2 (06:20→18:19)
[2021-06-08] MEDS: IPRATROPIUM/ALBUTEROL SULFATE 3 ML SOLUTION IH SCH ×5 (06:20→23:21)
[2021-06-08] MEDS: LEVOFLOXACIN 250 MG/D5W 50ML 50 ML IVPB SCH (07:42)
[2021-06-08] MEDS: FAMOTIDINE 20MG VIAL IV SCH ×2 (07:42→20:37)
[2021-06-08] MEDS: ENOXAPARIN SODIUM 40 MG/0.4 ML SYRINGE SQ SCH (07:44)
[2021-06-08] MEDS: AZITHROMYCIN 500MG+NS 250ML 250 ML IV SCH (07:44)
[2021-06-08] MEDS: SPIRONOLACTONE 25 MG TAB PO SCH (07:44)
[2021-06-08] MEDS: LOSARTAN 100 MG TABLET PO SCH (07:44)
[2021-06-08] MEDS: POLYETHYLENE GLYCOL 3350 17 GM POWD.PACK PO SCH (07:45)
[2021-06-08] MEDS: LACTULOSE 20 GM/30 ML UDCUP PO SCH (07:45)
[2021-06-08] MEDS: SENNOSIDES 8.6 MG TABLET PO SCH (07:45)
[2021-06-08] MEDS: BALSAM PERU/CASTOR OIL 60 GM TUBE TP SCH ×3 (07:49→20:37)
[2021-06-08] MEDS ORDERED: ACETAMINOPHEN 650 MG/20.3 ML UDCUP ONE (15:22)
[2021-06-08] MEDS ORDERED: LACTULOSE 20 GM/30 ML UDCUP NG PRN (15:30)
[2021-06-08] MEDS ORDERED: ACETAMINOPHEN 650 MG/20.3 ML UDCUP PEG SCH (16:00)
[2021-06-08] MEDS: SIMVASTATIN 10 MG TABLET PO SCH (20:37)
[2021-06-08] MEDS: INSULIN GLARGINE 100 UNITS/ML 10 ML VIAL SQ SCH (20:42)
[2021-06-09] VITALS (28 sets, daily range): BP systolic 88–192; BP diastolic 35–100
[2021-06-09] MEDS: SOLU-MEDROL 125MG VIAL IV SCH ×2 (00:40→14:09)
[2021-06-09] MEDS: IPRATROPIUM/ALBUTEROL SULFATE 3 ML SOLUTION IH SCH ×6 (03:27→23:30)
[2021-06-09 04:16] LABS: ABG BASE EXCESS 3.7 mmol/L (-2.0-3.0); ABG HCO3 26.7 mmol/L (21.0-28.0); ABG OXYGEN SATURATION 98.2 % (95.0-99.0); ABG PCO2 34 mmHg (32-45)
[2021-06-09] MEDS: DEXMEDETOMIDINE 400MCG/NS100ML IV SCH ×3 (04:19→22:03)
[2021-06-09 04:26] LABS: BASOPHILS % (AUTO) 0.1 % (0.0-5.0); EOSINOPHILS % (AUTO) 1.1 % (0.0-8.0); HEMATOCRIT 22.3 % (36-48); LYMPHOCYTES % (AUTO) 8.2 % (21.0-51.0); MEAN CORPUSCULAR HEMOGLOBIN 27.7 pg (27.0-33.0); MEAN CORPUSCULAR HGB CONC 31.8 g/dL (32.0-36.0); MEAN CORPUSCULAR VOLUME 87.1 fL (79-99); MONOCYTES % (AUTO) 6.8 % (3.0-13.0); NEUTROPHILS % (AUTO) 82.9 % (40.0-77.0); PLATELET COUNT (AUTO) 146 K/uL (130-400); RED BLOOD CELL COUNT(AUTO) 2.56 MIL/uL (4.00-5.50); RED CELL DISTRIBUTION WIDTH 14.2 % (11.0-15.5); WHITE BLOOD COUNT (AUTO) 9.6 K/uL (4.8-10.8)
[2021-06-09 04:46] LABS: ALBUMIN 2.3 g/dL (3.5-5.0); BILIRUBIN,TOTAL 0.4 mg/dL (0.2-1.0); CREATININE 0.7 mg/dL (0.5-1.5); POTASSIUM 3.3 mmol/L (3.5-5.1); TOTAL PROTEIN, SERUM 5.1 g/dL (6.0-8.3)
[2021-06-09] MEDS: INSULIN HUMULIN R 100 UNIT/ML 3ML SQ SCH ×3 (06:00→18:00)
[2021-06-09] MEDS: ACETAMINOPHEN 650 MG/20.3 ML UDCUP PEG PRN ×2 (06:01→15:30)
[2021-06-09] MEDS: BUDESONIDE 0.5 MG/2 ML INH IH SCH ×2 (06:19→19:23)
[2021-06-09 08:18] LABS: ABG BASE EXCESS 0.9 mmol/L (-2.0-3.0); ABG HCO3 24.8 mmol/L (21.0-28.0); ABG OXYGEN SATURATION 98.3 % (95.0-99.0); ABG PCO2 36 mmHg (32-45)
[2021-06-09 08:23] LABS: HEMATOCRIT 21.9 % (36-48)
[2021-06-09] MEDS ORDERED: 0.9% NACL 250ML 250 ML ONE (08:41)
[2021-06-09] MEDS: SPIRONOLACTONE 25 MG TAB PO SCH (08:44)
[2021-06-09] MEDS: LEVOFLOXACIN 250 MG/D5W 50ML 50 ML IVPB SCH (08:44)
[2021-06-09] MEDS: LOSARTAN 100 MG TABLET PO SCH (08:44)
[2021-06-09] MEDS: FAMOTIDINE 20MG VIAL IV SCH ×2 (08:44→21:31)
[2021-06-09] MEDS: AZITHROMYCIN 500MG+NS 250ML 250 ML IV SCH (08:44)
[2021-06-09] MEDS: BALSAM PERU/CASTOR OIL 60 GM TUBE TP SCH ×3 (09:00→21:30)
[2021-06-09] MEDS ORDERED: ACETYLCYSTEINE 10% 100MG/ML 4ML VIAL ONE (10:37)
[2021-06-09] MEDS: ACETYLCYSTEINE 10% 100MG/ML 4ML VIAL IH SCH ×4 (10:41→23:30)
[2021-06-09 10:49] LABS: ABG BASE EXCESS 2.3 mmol/L (-2.0-3.0); ABG HCO3 26.2 mmol/L (21.0-28.0); ABG PCO2 37 mmHg (32-45)
[2021-06-09] MEDS: SIMVASTATIN 10 MG TABLET PO SCH (21:31)
[2021-06-09 21:53] LABS: HEMATOCRIT 31.9 % (36-48)
[2021-06-09] MEDS: INSULIN GLARGINE 100 UNITS/ML 10 ML VIAL SQ SCH (22:09)
[2021-06-10] VITALS (24 sets, daily range): BP systolic 117–176; BP diastolic 54–87
[2021-06-10] MEDS: INSULIN HUMULIN R 100 UNIT/ML 3ML SQ SCH ×5 (00:09→23:31)
[2021-06-10] MEDS: SOLU-MEDROL 125MG VIAL IV SCH ×2 (01:27→13:47)
[2021-06-10] MEDS: IPRATROPIUM/ALBUTEROL SULFATE 3 ML SOLUTION IH SCH ×6 (02:55→22:49)
[2021-06-10] MEDS: ACETYLCYSTEINE 10% 100MG/ML 4ML VIAL IH SCH ×6 (02:55→22:49)
[2021-06-10] MEDS: DEXMEDETOMIDINE 400MCG/NS100ML IV SCH ×4 (03:01→23:41)
[2021-06-10 04:08] LABS: HEMATOCRIT 31.4 % (36-48); MEAN CORPUSCULAR HEMOGLOBIN 28.3 pg (27.0-33.0); MEAN CORPUSCULAR HGB CONC 32.2 g/dL (32.0-36.0); RED BLOOD CELL COUNT(AUTO) 3.57 MIL/uL (4.00-5.50); RED CELL DISTRIBUTION WIDTH 13.9 % (11.0-15.5); WHITE BLOOD COUNT (AUTO) 18.3 K/uL (4.8-10.8)
[2021-06-10 04:16] LABS: CREATININE 0.6 mg/dL (0.5-1.5); POTASSIUM 4.4 mmol/L (3.5-5.1)
[2021-06-10] MEDS: BUDESONIDE 0.5 MG/2 ML INH IH SCH ×2 (06:33→18:20)
[2021-06-10 06:48] LABS: ABG BASE EXCESS 0.8 mmol/L (-2.0-3.0); ABG HCO3 25.1 mmol/L (21.0-28.0); ABG OXYGEN SATURATION 96.7 % (95.0-99.0); ABG PCO2 39 mmHg (32-45)
[2021-06-10 08:55] LABS: ABG BASE EXCESS 0.8 mmol/L (-2.0-3.0); ABG HCO3 24.6 mmol/L (21.0-28.0); ABG OXYGEN SATURATION 98.6 % (95.0-99.0); ABG PCO2 36 mmHg (32-45)
[2021-06-10] MEDS ORDERED: FUROSEMIDE 20MG VIAL IV SCH (09:00)
[2021-06-10] MEDS: AZITHROMYCIN 500MG+NS 250ML 250 ML IV SCH (10:26)
[2021-06-10] MEDS: LOSARTAN 100 MG TABLET PO SCH (10:26)
[2021-06-10] MEDS: FAMOTIDINE 20MG VIAL IV SCH ×2 (10:26→20:04)
[2021-06-10] MEDS: SPIRONOLACTONE 25 MG TAB PO SCH (10:26)
[2021-06-10] MEDS: LEVOFLOXACIN 250 MG/D5W 50ML 50 ML IVPB SCH (10:26)
[2021-06-10] MEDS: BALSAM PERU/CASTOR OIL 60 GM TUBE TP SCH ×3 (10:50→20:06)
[2021-06-10] MEDS: ENOXAPARIN SODIUM 40 MG/0.4 ML SYRINGE SQ SCH (10:50)
[2021-06-10] MEDS: SIMVASTATIN 10 MG TABLET PO SCH (20:04)
[2021-06-10] MEDS: INSULIN GLARGINE 100 UNITS/ML 10 ML VIAL SQ SCH (20:06)
[2021-06-10] MEDS: GUAIFENESIN-DM 200/20 MG 10 ML PO PRN (21:11)
[2021-06-11] VITALS (37 sets, daily range): BP systolic 101–166; BP diastolic 49–84
[2021-06-11] MEDS: SOLU-MEDROL 125MG VIAL IV SCH ×2 (00:54→12:48)
[2021-06-11] MEDS: ACETYLCYSTEINE 10% 100MG/ML 4ML VIAL IH SCH ×6 (02:44→22:02)
[2021-06-11] MEDS: IPRATROPIUM/ALBUTEROL SULFATE 3 ML SOLUTION IH SCH ×6 (02:44→22:02)
[2021-06-11 04:38] LABS: HEMATOCRIT 27.9 % (36-48); MEAN CORPUSCULAR HEMOGLOBIN 28.3 pg (27.0-33.0); MEAN CORPUSCULAR HGB CONC 31.9 g/dL (32.0-36.0); MEAN CORPUSCULAR VOLUME 88.9 fL (79-99); RED BLOOD CELL COUNT(AUTO) 3.14 MIL/uL (4.00-5.50); RED CELL DISTRIBUTION WIDTH 14.2 % (11.0-15.5); WHITE BLOOD COUNT (AUTO) 13.8 K/uL (4.8-10.8)
[2021-06-11 04:58] LABS: CREATININE 0.6 mg/dL (0.5-1.5); POTASSIUM 3.6 mmol/L (3.5-5.1)
[2021-06-11] MEDS: INSULIN HUMULIN R 100 UNIT/ML 3ML SQ SCH ×4 (05:12→23:12)
[2021-06-11] MEDS: DEXMEDETOMIDINE 400MCG/NS100ML IV SCH ×3 (06:09→21:11)
[2021-06-11] MEDS: BUDESONIDE 0.5 MG/2 ML INH IH SCH ×2 (06:40→18:31)
[2021-06-11] MEDS: LEVOFLOXACIN 250 MG/D5W 50ML 50 ML IVPB SCH (08:16)
[2021-06-11] MEDS: FAMOTIDINE 20MG VIAL IV SCH ×2 (08:17→20:16)
[2021-06-11] MEDS: LOSARTAN 100 MG TABLET PO SCH (08:17)
[2021-06-11] MEDS: ENOXAPARIN SODIUM 40 MG/0.4 ML SYRINGE SQ SCH (08:17)
[2021-06-11] MEDS: SPIRONOLACTONE 25 MG TAB PO SCH (08:17)
[2021-06-11] MEDS: BALSAM PERU/CASTOR OIL 60 GM TUBE TP SCH ×3 (08:18→20:18)
[2021-06-11] MEDS: AZITHROMYCIN 500MG+NS 250ML 250 ML IV SCH (08:18)
[2021-06-11] MEDS: ACETAMINOPHEN 650 MG/20.3 ML UDCUP PEG PRN ×2 (10:06→18:06)
[2021-06-11] MEDS ORDERED: ASPIRIN 81MG CHEW TAB PO SCH (18:00)
[2021-06-11 18:30] LABS: CHOLESTEROL 127 mg/dL (<200); HDL CHOLESTEROL 55 mg/dL (35-85); LDL DIRECT 51 mg/dL (0-99); TRIGLYCERIDES 108 mg/dL (30-200)
[2021-06-11] MEDS ORDERED: FUROSEMIDE 20MG VIAL IV SCH (19:00)
[2021-06-11] MEDS: INSULIN GLARGINE 100 UNITS/ML 10 ML VIAL SQ SCH (20:18)
[2021-06-11] MEDS: SIMVASTATIN 10 MG TABLET PO SCH (20:18)
[2021-06-12] VITALS (19 sets, daily range): BP systolic 97–158; BP diastolic 41–97
[2021-06-12] MEDS: SOLU-MEDROL 125MG VIAL IV SCH ×2 (00:24→12:33)
[2021-06-12] MEDS: GUAIFENESIN-DM 200/20 MG 10 ML PO PRN (00:49)
[2021-06-12] MEDS: ACETAMINOPHEN 325 MG TAB PO PRN (00:49)
[2021-06-12] MEDS: DEXMEDETOMIDINE 400MCG/NS100ML IV SCH ×3 (01:38→12:26)
[2021-06-12 03:34] LABS: ABG BASE EXCESS 2.9 mmol/L (-2.0-3.0); ABG HCO3 27.4 mmol/L (21.0-28.0); ABG OXYGEN SATURATION 97.8 % (95.0-99.0); ABG PCO2 41 mmHg (32-45)
[2021-06-12] MEDS: IPRATROPIUM/ALBUTEROL SULFATE 3 ML SOLUTION IH SCH ×4 (03:45→14:06)
[2021-06-12] MEDS: ACETYLCYSTEINE 10% 100MG/ML 4ML VIAL IH SCH ×4 (03:45→14:06)
[2021-06-12] MEDS: INSULIN HUMULIN R 100 UNIT/ML 3ML SQ SCH ×2 (06:00→12:00)
[2021-06-12] MEDS: BUDESONIDE 0.5 MG/2 ML INH IH SCH (06:30)
[2021-06-12 07:40] LABS: HEMATOCRIT 28.2 % (36-48); MEAN CORPUSCULAR HEMOGLOBIN 28.5 pg (27.0-33.0); MEAN CORPUSCULAR HGB CONC 31.6 g/dL (32.0-36.0); MEAN CORPUSCULAR VOLUME 90.4 fL (79-99); RED BLOOD CELL COUNT(AUTO) 3.12 MIL/uL (4.00-5.50); RED CELL DISTRIBUTION WIDTH 14.7 % (11.0-15.5); WHITE BLOOD COUNT (AUTO) 11.1 K/uL (4.8-10.8)
[2021-06-12 07:55] LABS: CREATININE 0.7 mg/dL (0.5-1.5); POTASSIUM 3.6 mmol/L (3.5-5.1)
[2021-06-12] MEDS: LEVOFLOXACIN 250 MG/D5W 50ML 50 ML IVPB SCH (08:28)
[2021-06-12] MEDS: LOSARTAN 100 MG TABLET PO SCH (08:29)
[2021-06-12] MEDS: AZITHROMYCIN 500MG+NS 250ML 250 ML IV SCH (08:29)
[2021-06-12] MEDS: FAMOTIDINE 20MG VIAL IV SCH (08:29)
[2021-06-12] MEDS: SPIRONOLACTONE 25 MG TAB PO SCH (08:29)
[2021-06-12] MEDS: ENOXAPARIN SODIUM 40 MG/0.4 ML SYRINGE SQ SCH (08:32)
[2021-06-12] MEDS: BALSAM PERU/CASTOR OIL 60 GM TUBE TP SCH ×2 (08:33→14:39)
[2021-06-12] MEDS ORDERED: SULFAMETHOX-TMP DS 800/160 TAB PO SCH (12:00)
[2021-06-12] MEDS: ACETAMINOPHEN 650 MG/20.3 ML UDCUP PEG PRN (12:27)
[2021-06-12] MEDS ORDERED: QUETIAPINE FUMARATE 25 MG TAB PO SCH (21:00)
== END 2021-06-12 15:25 | DRG 870 ==
LOC: EDH 22:22 → EDHIP 05-23 01:21 → 2BH 05-24 00:45 → 2CH 06-08 21:26
PROVIDERS: ADMIT Hospitalist; ATTEND Hospitalist
PROC: 5A09357 Assistance with Respiratory Ventilation, Less than 24 Consecutive Hours, Continuous Positive Airway Pressure (ICD-10-PCS; 2021-05-22)
PROC: 5A09457 Assistance with Respiratory Ventilation, 24-96 Consecutive Hours, Continuous Positive Airway Pressure (ICD-10-PCS; 2021-05-24)
PROC: 02HV33Z Insertion of Infusion Device into Superior Vena Cava, Percutaneous Approach (ICD-10-PCS; principal; 2021-05-25)
PROC: 5A1955Z Respiratory Ventilation, Greater than 96 Consecutive Hours (ICD-10-PCS; 2021-05-28)
PROC: 0B9D8ZX Drainage of Right Middle Lung Lobe, Via Natural or Artificial Opening Endoscopic, Diagnostic (ICD-10-PCS; 2021-05-28)
PROC: 03HY32Z Insertion of Monitoring Device into Upper Artery, Percutaneous Approach (ICD-10-PCS; 2021-05-28)
PROC: 0BH17EZ Insertion of Endotracheal Airway into Trachea, Via Natural or Artificial Opening (ICD-10-PCS; 2021-05-28)
PROC: 5A09357 Assistance with Respiratory Ventilation, Less than 24 Consecutive Hours, Continuous Positive Airway Pressure (ICD-10-PCS; 2021-06-06)
PROC: 30233N1 Transfusion of Nonautologous Red Blood Cells into Peripheral Vein, Percutaneous Approach (ICD-10-PCS; 2021-06-09)
PROC: 5A09357 Assistance with Respiratory Ventilation, Less than 24 Consecutive Hours, Continuous Positive Airway Pressure (ICD-10-PCS; 2021-06-09)
PROC: 5A09357 Assistance with Respiratory Ventilation, Less than 24 Consecutive Hours, Continuous Positive Airway Pressure (ICD-10-PCS; 2021-06-09)
PROC: 5A09357 Assistance with Respiratory Ventilation, Less than 24 Consecutive Hours, Continuous Positive Airway Pressure (ICD-10-PCS; 2021-06-11)
DX: A41.9 Sepsis, unspecified organism (principal); J96.22 Acute and chronic respiratory failure with hypercapnia; J15.9 Unspecified bacterial pneumonia; G93.41 Metabolic encephalopathy; J15.6 Pneumonia due to other Gram-negative bacteria; J96.21 Acute and chronic respiratory failure with hypoxia; M62.82 Rhabdomyolysis; J47.0 Bronchiectasis with acute lower respiratory infection; J47.1 Bronchiectasis with (acute) exacerbation; J81.1 Chronic pulmonary edema; J98.11 Atelectasis; N17.9 Acute kidney failure, unspecified; E87.0 Hyperosmolality and hypernatremia; J95.851 Ventilator associated pneumonia; F13.239 Sedative, hypnotic or anxiolytic dependence with withdrawal, unspecified; E87.1 Hypo-osmolality and hyponatremia; Z68.35 Body mass index [BMI] 35.0-35.9, adult; E87.5 Hyperkalemia; E11.65 Type 2 diabetes mellitus with hyperglycemia; I16.0 Hypertensive urgency; F10.10 Alcohol abuse, uncomplicated; F32.A Depression, unspecified; D64.9 Anemia, unspecified; E78.5 Hyperlipidemia, unspecified; F41.9 Anxiety disorder, unspecified; E86.1 Hypovolemia; Z66 Do not resuscitate; I95.9 Hypotension, unspecified; J20.9 Acute bronchitis, unspecified; L89.152 Pressure ulcer of sacral region, stage 2; E66.9 Obesity, unspecified; J43.9 Emphysema, unspecified; R54 Age-related physical debility; Z20.822 Contact with and (suspected) exposure to COVID-19; I10 Essential (primary) hypertension; T38.0X5A Adverse effect of glucocorticoids and synthetic analogues, initial encounter; Z88.0 Allergy status to penicillin; Z88.8 Allergy status to other drugs, medicaments and biological substances; Z91.030 Bee allergy status; Z91.041 Radiographic dye allergy status; Z99.81 Dependence on supplemental oxygen; Z79.891 Long term (current) use of opiate analgesic; Z87.891 Personal history of nicotine dependence; Y92.89 Other specified places as the place of occurrence of the external cause; Z86.73 Personal history of transient ischemic attack (TIA), and cerebral infarction without residual deficits; Z83.3 Family history of diabetes mellitus; Z82.0 Family history of epilepsy and other diseases of the nervous system; Z82.5 Family history of asthma and other chronic lower respiratory diseases; Z82.49 Family history of ischemic heart disease and other diseases of the circulatory system; Y83.8 Other surgical procedures as the cause of abnormal reaction of the patient, or of later complication, without mention of misadventure at the time of the procedure; Y82.8 Other medical devices associated with adverse incidents
CPT/HCPCS: 31500; 36415; 36430; 36600; 70450; 71045; 71250; 74018; 80048; 80053; 80061; 81001; 82140; 82435; 82550; 82803; 82947; 82948; 83036; 83605; 83735; 83874; 83880; 84132; 84145; 84295; 84439; 84443; 84481; 84484; 85014; 85018; 85025; 85027; 85610; 85730; 86140; 86850; 86900; 86901; 86922; 87040; 87071; 87077; 87186; 87205; 87449; 87635; 87804; 92507; 92610; 93005; 93306; 93970; 94002; 94003; 94640; 94660; 94664; 94667; 94668; 97039; 99291; C1751; C1894; C9803; G0378; J0360; J0456; J0696; J1200; J1650; J1815; J1940; J1956; J2060; J2405; J2704; J2930; J3010; J3475; J3490; J7030; J7050; J7608; P9016

== ENCOUNTER 2021-07-09 22:18 | Emergency (ER) | payer MEDICARE, OTHER ==
[~2021-07-09] VITALS: Ht 170.2 cm; Wt 84.4 kg
[~2021-07-09 22:18] MED LIST changes: -ALPR0.255 PO; -ASPI-1197 PO; -CITA-107 PO; -CYCL5TAB PO; +LORA10TA7 PO; -ONDA4TAB4 PO; -SIMV80TA91 PO; +SPIR25TA6 PO; -TRAM50TA4 PO
[2021-07-10] MEDS ORDERED: IPRATROPIUM/ALBUTEROL SULFATE 3 ML SOLUTION IH ONE (00:30)
[2021-07-10 01:15] LABS: BASOPHILS % (AUTO) 0.3 % (0.0-5.0); EOSINOPHILS % (AUTO) 0.2 % (0.0-8.0); HEMATOCRIT 30.9 % (36-48); LYMPHOCYTES % (AUTO) 11.8 % (21.0-51.0); MEAN CORPUSCULAR HEMOGLOBIN 27.9 pg (27.0-33.0); MEAN CORPUSCULAR HGB CONC 30.1 g/dL (32.0-36.0); MEAN CORPUSCULAR VOLUME 92.8 fL (79-99); MONOCYTES % (AUTO) 8.7 % (3.0-13.0); NEUTROPHILS % (AUTO) 75.7 % (40.0-77.0); NUCLEATED RED BLOOD CELLS 0.6 % (0.0-0.19); PLATELET COUNT (AUTO) 241 K/uL (130-400); RED BLOOD CELL COUNT(AUTO) 3.33 MIL/uL (4.00-5.50); RED CELL DISTRIBUTION WIDTH 15.5 % (11.0-15.5); WHITE BLOOD COUNT (AUTO) 9.8 K/uL (4.8-10.8)
[2021-07-10 01:24] LABS: CREATININE 0.4 mg/dL (0.5-1.5); POTASSIUM 4.4 mmol/L (3.5-5.1)
[2021-07-10 01:28] LABS: ALBUMIN 2.7 g/dL (3.5-5.0); BILIRUBIN,TOTAL 0.2 mg/dL (0.2-1.0); TOTAL PROTEIN, SERUM 6.8 g/dL (6.0-8.3)
[2021-07-10] MEDS ORDERED: ALBUTEROL INHALER 90MCG/INH IH ONE ×2 (01:30→03:06)
[2021-07-10] MEDS ORDERED: LORAZEPAM 2 MG/ML 1 ML VIAL IVP ONE ×3 (04:30→06:30)
[2021-07-10] MEDS ORDERED: MORPHINE 2 MG SYG IVP ONE ×2 (05:00→06:30)
[2021-07-10] MEDS ORDERED: MORPHINE 4 MG SYG ONE (06:44)
[2021-07-10 12:00] VITALS: BP 138/68
== END 2021-07-10 13:45 | disposition home or self-care (01) ==
LOC: EDH 22:18
DX: U07.1 COVID-19 (principal); J96.21 Acute and chronic respiratory failure with hypoxia; R41.82 Altered mental status, unspecified; I10 Essential (primary) hypertension; E11.9 Type 2 diabetes mellitus without complications; J44.9 Chronic obstructive pulmonary disease, unspecified; F32.9 Major depressive disorder, single episode, unspecified; Z88.0 Allergy status to penicillin; Z91.041 Radiographic dye allergy status; Z88.8 Allergy status to other drugs, medicaments and biological substances; Z79.899 Other long term (current) drug therapy
CPT/HCPCS: 36415; 70450; 71250; 72125; 74176; 80053; 82140; 85025; 87635; 96374; 96375; 96376; 99285; C9803; J2060; J2270